=== PATIENT | female | born 1965 | race American Indian/Alaskan Native ===

== ENCOUNTER 2024-02-29 07:21 | Emergency (ER) | payer MEDICAID, SELFPAY ==
[2024-02-29 08:01] VITALS: BP 149/86; PULSE 79; RESP 16; TEMP 36.9; O2SAT 99; BMI 34.9
--- NOTE | 2024-02-29 08:14 | EKG_ITS ---
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
--- NOTE | 2024-02-29 08:14 | XR_ITS ---
Examination: PA lateral chest 2 views Technique: Upright PA lateral chest 2 views Exam date and time: February 29, 2024 0831 hrs. Indications: Chest pain today. Findings: Normal heart size Lungs are clear. The osseous structures are intact Impression: No active disease
--- NOTE | 2024-02-29 08:14 | PD.EDRME ---
Rapid Medical Screening Exam RME Arrival date/time: 02/29/24 07:21 Chief Complaint: General Adult/Misc Complain Time Seen by Provider: 02/29/24 07:52 Vital signs: Vital Signs Temperature 98.4 F 02/29/24 08:01 Pulse Rate 79 02/29/24 08:01 Respiratory Rate 16 02/29/24 08:01 Blood Pressure 149/86 H 02/29/24 08:01 Pulse Oximetry (%) 99 02/29/24 08:01 Oxygen Delivery Method Room Air 02/29/24 08:01 Vital signs reviewed by provider: Yes RME Narrative: 58-year-old female with past medical history of diabetes, hyperlipidemia, hypertension presents to the ED for evaluation of left arm pain. She reports chest tightness that woke her from sleep at 0230 today. She reports chest tightness has now improved but not she has sharp pain radiating down her left arm. Patient reports high blood pressure reading at home with a systolic in the 170s. She denies headache, nausea, vomiting, shortness of breath, leg swelling. 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 Patient is not currently on antihypertensive medication.
[2024-02-29] MEDS: ACETAMINOPHEN 325 MG TABLET 650 MG PO (08:24)
[2024-02-29] MEDS: ONDANSETRON ODT 4 MG TABRAP PO (08:25)
[2024-02-29 09:11] LABS: Collection Type, Urine Clean Catch
[2024-02-29 09:13] LABS: Basophils # (Auto) 0.1 Thou/mm3 (0.0-0.2); Basophils % (Auto) 1 % (0-2.5); Eosinophils # (Auto) 0.1 Thou/mm3 (0.0-0.5); Eosinophils % (Auto) 1 % (0-10); Hematocrit 40.5 % (36.0-46.0); Hemoglobin 14.6 g/dL (12.0-16.0); Immature Granulocytes % (Auto) 0 % (0-0); Immature Granulocytes Auto 0.02 Thou/mm3 (0.00-0.00); Lymphocytes # (Auto) 2.3 Thou/mm3 (1.0-4.8); Lymphocytes % (Auto) 27 % (10-50); Mean Corpuscular Hemoglobin 29.4 pg (25.0-35.0); Mean Corpuscular Volume 82 fL (80-100); Monocytes # (Auto) 0.4 Thou/mm3 (0.0-0.8); Monocytes % (Auto) 4 % (0-12); Neutrophils # (Auto) 5.7 Thou/mm3 (1.8-7.7); Neutrophils % (Auto) 66 % (37-80); Nucleated Red Blood Cell % 0 /100 WBC (0); Platelet Count 390 Thou/mm3 (140-440); RDW Standard Deviation 37.8 fL (36.4-46.3); Red Blood Count 4.96 Miln/mm3 (4.00-5.20); White Blood Count 8.6 Thou/mm3 (3.6-11.0)
[2024-02-29 09:19] LABS: Bilirubin,Urine Negative (Negative); Blood,Urine Negative (Negative); Clarity,Urine Clear (Clear/Hazy); Color,Urine Lt-Yellow (Lt Yel-Yel); Glucose, Urine 4+ (Negative); Ketones,Urine Trace (Negative); Leukocyte Esterase,Urine Negative (Negative); Nitrite,Urine Negative (Negative); Protein,Urine 2+ (Neg - Trace); RBC,Urine 1 /hpf (0-3); Specific Gravity,Urine 1.031 (1.001-1.035); Squamous Epithelial Cell,Urine 8 /hpf (0-5); Urobilinogen,Urine Negative mg/dL (0.0-1.0); WBC,Urine 1 /hpf (0-5)
[2024-02-29 09:30] LABS: B-Type Natriuretic Peptide < 20 pg/mL (0-100)
[2024-02-29 09:31] LABS: Alanine Aminotransferase 30 U/L (10-49); Albumin, Serum 4.3 gm/dL (3.5-5.0); Albumin/Globulin Ratio 1.5 (1.2-2.2); Alkaline Phosphatase 118 U/L (46-116); Anion Gap 7 (7-16); Aspartate Amino Transferase 20 U/L (0-34); BUN/Creatinine Ratio 15 Ratio (12-20); Bilirubin,Total 0.6 mg/dL (0.3-1.2); Blood Urea Nitrogen 12 mg/dL (9-23); Calcium 9.7 mg/dL (8.3-10.6); Calcium (Corrected) 9.7 mg/dL (8.5-10.1); Carbon Dioxide 27.3 mMol/L (20.0-31.0); Chloride 99 mMol/L (98-107); Creatinine (Component) 0.8 mg/dL (0.6-1.3); Estimated Creatinine Clearance 77.2 mL/min (>60); Globulin 2.9 gm/dL (2.3-3.5); Glucose 321 mg/dL (74-106); Magnesium 1.7 mg/dL (1.6-2.6); Osmolality,Calculated 278 (275-295); Potassium 4.1 mMol/L (3.4-5.1); Sodium 133 mMol/L (136-145); Total Protein 7.2 gm/dL (5.7-8.2); Troponin I < 0.020 ng/mL (0.0-0.045); eGFR > 60 See Note
[2024-02-29 09:34] LABS: Amphetamine/Methamp Scrn,U Negative (Negative); Barbiturate Screen,Urine Negative (Negative); Benzodiazepines Screen,Urine Negative (Negative); Benzoylecgonine Screen, Ur Negative (Negative); Fentanyl Screen,Urine Negative (Negative); Opiate Screen,Urine Negative (Negative); THC Screen,Urine Negative (Negative)
[2024-02-29 11:05] LABS: Partial Thromboplastin Time 26.7 Seconds (22.0-36.0); Prothrombin Time 10.8 Seconds (9.0-12.2)
--- NOTE | 2024-02-29 11:56 | PD.EDADULT ---
ED General RME/HPI General Chief complaint: General Adult/Misc Complain Stated complaint: SHARP PAIN IN L ARM/LEG PAIN, NAUSEA Time Seen by Provider: 02/29/24 07:52 Arrival date/time: 02/29/24 07:21 Limitations: no limitations RME / HPI RME / HPI narrative: 58-year-old female with past medical history of diabetes, hyperlipidemia, hypertension presents to the ED for evaluation of left arm pain. She reports chest tightness that woke her from sleep at 0230 today. She reports chest tightness has now improved but not she has sharp pain radiating down her left arm. Patient reports high blood pressure reading at home with a systolic in the 170s. She denies headache, nausea, vomiting, shortness of breath, leg swelling. 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 Patient is not currently on antihypertensive medication. Related Data Home Medications ?Medication ?Instructions ?Recorded ?Confirmed insulin glargine 100 unit/mL (3 30 unit subcut QDAY 08/19/17 02/26/20 mL) subcutaneous pen (Basaglar KwikPen U-100 Insulin) insulin lispro 100 unit/mL 15 unit subcut AC 02/26/20 02/26/20 subcutaneous pen (Humalog KwikPen (U-100) Insulin) Previous Rx's ?Medication ?Instructions ?Recorded amlodipine 5 mg tablet 5 mg PO QDAY #30 tabs 02/26/20 levofloxacin 500 mg tablet 500 mg PO QDAY #14 tabs 06/16/22 levofloxacin 500 mg tablet 500 mg PO QDAY #14 tabs 06/16/22 Allergies Allergy/AdvReac Type Severity Reaction Status Date / Time lisinopril Allergy Verified 02/29/24 07:23 Review of Systems Constitutional Constitutional: Denies fatigue, Denies fever(s), Denies headache(s) and Denies weakness Eyes Eyes: Reports blurry vision and Denies change in vision ENT Ears, Nose, Mouth, and Throat: Denies disequilibrium, Denies dizziness, Denies headache(s) and Denies neck pain Cardiovascular Cardiovascular: Reports chest pain, Denies dyspnea, Denies leg edema, Denies palpitations and Reports other (left arm pain ) Respiratory Respiratory: Denies cough, Denies dyspnea and Denies wheezing Gastrointestinal Gastrointestinal: Denies abdominal pain, Denies nausea and Denies vomiting Genitourinary Genitourinary: Denies dysuria Musculoskeletal Musculoskeletal: Denies back pain, Denies neck pain, Denies numbness and Denies tingling Integumentary/Breasts Skin/Breast: Denies rash Neurologic Neurologic: Denies disequilibrium, Denies dizziness, Denies headache(s), Denies numbness, Denies tingling and Denies weakness Endocrine Endocrine: Denies fatigue and Denies palpitations Allergic/Immunologic Allergic/Immunologic: Denies wheezing Past Medical History Past Medical History NEUROLOGIC: Negative Neurological Disorders CARDIAC: Negative Cardiac Disorders or Congestive Heart Failure RESPIRATORY: Negative Chronic Obstructive Pulmonary Disease (COPD) GASTROINTESTINAL: Negative Gastrointestinal Disorders GENITOURINARY: Negative Genitourinary Disorders or Renal Disease MUSCULOSKELETAL: Positive Musculoskeletal Disorders and Osteoporosis ENT: Positive Ear Infection ENDOCRINE: Positive Endocrine Disorders and Diabetes Mellitus Type 1; Negative Diabetes Mellitus Type 2 HEMATOLOGIC: Negative Blood Disorders or Anemia OTHER HISTORY: Positive Anesthesia Reactions; Negative Blood Transfusions Surgical History SURGICAL: Positive Hysterectomy and Section Social History SMOKING STATUS: Never smoker ED Exam General Limitations: Present no limitations General appearance: Present alert and in no apparent distress Head Head exam: Present atraumatic and normocephalic Eye Eye exam: Present normal appearance, PERRL and EOMI ENT ENT exam: Present normal oropharynx Neck Neck exam: Present normal inspection and full ROM Chest Chest inspection: Present normal inspection and symmetric chest wall rise Respiratory Respiratory exam: Present normal lung sounds bilaterally; Absent respiratory distress Cardiovascular Cardiovascular exam: Present regular rate and +S1 Abdominal Exam Abdominal exam: Present soft; Absent distention or tenderness Extremities Exam Extremities exam: Present normal inspection and full ROM Expanded Upper Extremity Exam Shoulder exam: Present normal inspection Arm exam: Present normal inspection Elbow exam: Present normal inspection Forearm/Wrist exam: Present normal inspection Vascular exam: Normal capillary refill Neurological Exam Neurological exam: Present alert Psychiatric Psychiatric exam: Present normal affect Skin Skin exam: Present warm, dry and normal color Course Quality Measures none Orders Category Date Time Status EKG (ED ONLY) *Do not use* NOW Care 02/29/24 08:14 Completed EKG (ED Only) Stat Exams 02/29/24 08:14 Draft XR chest 2V Stat Exams 02/29/24 08:14 Completed B-Type Natriuretic Peptide Stat Lab 02/29/24 09:01 Completed CBC Stat Lab 02/29/24 09:01 Completed Comprehensive Metabolic Panel Stat Lab 02/29/24 09:01 Completed Drug Screen,Urine Stat Lab 02/29/24 08:33 Completed Magnesium Stat Lab 02/29/24 09:01 Completed Partial Thromboplastin Time Stat Lab 02/29/24 09:01 Completed Prothrombin Time with INR Stat Lab 02/29/24 09:01 Completed Troponin I Stat Lab 02/29/24 09:01 Completed Urinalysis Stat Lab 02/29/24 08:35 Completed Acetaminophen Tab [Tylenol Tab] Med 02/29/24 08:17 Discontinued 650 mg PO X1 ONE Ondansetron Odt [Zofran Odt] Med 02/29/24 08:17 Discontinued 4 mg PO X1 ONE Reevaluation(s) Reevaluation #1: Patient reports that her left arm pain and chest pain have improved. I discussed extensively the results of days work up. I stressed that she needs to talk to her primary care doctor regarding her high blood pressure and hyperlipidemia as she may need to resume treatment. We discussed lab result of hyponatremia and hyperglycemia today. Patient given the opportunity to ask questions and vocalized understanding of the results of today's workup. Time: 12:01 Vital Signs Vital signs: Vital Signs Temperature 98.4 F 02/29/24 08:01 Pulse Rate 79 02/29/24 08:01 Respiratory Rate 16 02/29/24 08:01 Blood Pressure 149/86 H 02/29/24 08:01 Pulse Oximetry (%) 99 02/29/24 08:01 Oxygen Delivery Method Room Air 02/29/24 08:01 Pulse ox 9 9% on room air, within normal limits. [facility] Patient data External records reviewed:: [facility] [place] previous records Clinical information provided by:: patient Social determinants that could affect healthcare access:: none Patient has the following chronic illnesses:: Hypertension, diabetes, hyperlipidemia. How is presenting disease/condition affected by chronic disease/condition?: exacerbated by Evaluation data The following diagnostics were reviewed and interpreted by me:: lab results, radiology exam(s) and EKG tracing(s) Lab and/or radiology exams considered but not ordered:: Cardiac workup ordered. Interpretation Summary: EKG with nonspecific ST changes. Troponin not elevated. Hyperglycemic in the 300s. Medications Medications considered but not ordered:: Rx given. Medication administrations:: Medication Administration History Discontinued Medications Acetaminophen (Acetaminophen 325 Mg Tablet) 650 mg PO X1 ONE Stop: 02/29/24 08:18 Last Admin: 02/29/24 08:24 Dose: 650 mg Documented By: DO Ondansetron HCl (Ondansetron Odt 4 Mg Tabrap) 4 mg PO X1 ONE; Protocol Stop: 02/29/24 08:18 Last Admin: 02/29/24 08:25 Dose: 4 mg Documented By: DO Rx given. Consultations Consultation(s) initiated? (list below): No Diagnosis Differential Diagnosis ED Complaint MDM: ACS, upper extremity DVT, muscle spasm, neuralgia, DKA, atypical chest pain Most likely diagnosis given after review of the tests above:: Atypical chest pain. Admission Indicated Admission indicated?: not indicated Explain why admission is indicated or not indicated:: Troponin negative on workup. Patient hyperglycemic but with stable vital signs and clinical picture not consistent with DKA at this time. Appropriate for discharge with close follow-up with primary care. Admission Request Was there a request for admission?: No Disposition Plan Disposition Plan: Discharge Discharge Attestation Discharge Attestation: The patient and all family members were given an opportunity to ask questions and understood the discharge instructions. Discharge instructions specifically effects, indications for sooner follow up or return to the emergency department, and the expected course of current diagnosis. Patient condition: Stable Medical Decision Making MDM Narrative MDM Narrative: 58-year-old female with diabetes, hyperlipidemia, hypertension presents for evaluation of chest tightness and left arm pain. Vital signs reassuring. Cardiac workup was obtained which points away from acute ME. Hyperglycemic with trace ketones on urinalysis today but without elevated serum bicarb, therefore pointing away from ketoacidosis at this time. Patient reported that her symptoms were resolved and consistently denied abdominal pain and GI symptoms while in the department. Chest x-ray showed no evidence of pneumonia at this time. No unilateral swelling and no tachycardia, pointing away from DVT. ultimately the patient requested to be discharged home following cardiac workup and was agreeable with the plan to follow-up with her primary care within 24 to 48 hours. Patient was stable at the time of discharge. Differential Diagnosis Differential Diagnosis: ACS, upper extremity DVT, muscle spasm, neuralgia, DKA, atypical chest pain Lab Data 02/29/24 09:01 02/29/24 09:01 Labs: Lab Results 02/29/24 02/29/24 02/29/24 Range/Units 08:33 08:35 09:01 WBC 8.6 (3.6-11.0) Thou/mm3 RBC 4.96 (4.00-5.20) Miln/mm3 Hgb 14.6 (12.0-16.0) g/dL Hct 40.5 (36.0-46.0) % MCV 82 (80-100) fL MCH 29.4 (25.0-35.0) pg MCHC 36.0 (31.0-37.0) g/dl RDW Std Deviation 37.8 (36.4-46.3) fL Plt Count 390 (140-440) Thou/mm3 Neut % (Auto) 66 (37-80) % Lymph % (Auto) 27 (10-50) % Pierce % (Auto) 4 (0-12) % Eos % (Auto) 1 (0-10) % Baso % (Auto) 1 (0-2.5) % Neut # (Auto) 5.7 (1.8-7.7) Thou/mm3 Lymph # (Auto) 2.3 (1.0-4.8) Thou/mm3 Pierce # (Auto) 0.4 (0.0-0.8) Thou/mm3 Eos # (Auto) 0.1 (0.0-0.5) Thou/mm3 Baso # (Auto) 0.1 (0.0-0.2) Thou/mm3 Immature Gran # (Auto) 0.02 H (0.00-0.00) Thou/mm3 Absolute Nucleated RBC 0.00 (0.00-0.00) Thou/mm3 Immature Gran % 0 (0-0) % Nucleated RBC % 0 (0) /100 WBC PT 10.8 (9.0-12.2) Seconds INR 1.0 (0.9-1.3) APTT 26.7 (22.0-36.0) Seconds Sodium 133 L (136-145) mMol/L Potassium 4.1 (3.4-5.1) mMol/L Chloride 99 (98-107) mMol/L Carbon Dioxide 27.3 (20.0-31.0) mMol/L Anion Gap 7 (7-16) BUN 12 (9-23) mg/dL Creatinine 0.8 (0.6-1.3) mg/dL Estim Creat Clear Calc 77.2 (>60) mL/min eGFR > 60 (60 - ) See Note BUN/Creatinine Ratio 15 (12-20) Ratio Glucose 321 H (74-106) mg/dL Calculated Osmolality 278 (275-295) Calcium 9.7 (8.3-10.6) mg/dL Corrected Calcium 9.7 (8.5-10.1) mg/dL Magnesium 1.7 (1.6-2.6) mg/dL Total Bilirubin 0.6 (0.3-1.2) mg/dL AST 20 (0-34) U/L ALT 30 (10-49) U/L Alkaline Phosphatase 118 H (46-116) U/L Troponin I < 0.020 (0.0-0.045) ng/mL B-Natriuretic Peptide < 20 (0-100) pg/mL Total Protein 7.2 (5.7-8.2) gm/dL Albumin 4.3 (3.5-5.0) gm/dL Globulin 2.9 (2.3-3.5) gm/dL Albumin/Globulin Ratio 1.5 (1.2-2.2) Ur Collection Type Clean Catch Urine Color Lt-Yellow (Lt Yel-Yel) Urine Clarity Clear (Clear/Hazy) Urine pH 6.0 (5.0-7.0) Ur Specific [place] 1.031 (1.001-1.035) Urine Protein 2+ A (Neg - Trace) Urine Glucose (UA) 4+ A (Negative) Urine Ketones Trace (Negative) Urine Blood Negative (Negative) Urine Nitrite Negative (Negative) Urine Bilirubin Negative (Negative) Urine Urobilinogen (Auto) Negative (0.0-1.0) mg/dL Ur Leukocyte Esterase Negative (Negative) Urine RBC 1 (0-3) /hpf Urine WBC 1 (0-5) /hpf Ur Squamous Epith Cells 8 H (0-5) /hpf Urine Bacteria None (None) Urine Opiates Screen Negative (Negative) Urine Fentanyl Screen Negative (Negative) Ur Barbiturates Screen Negative (Negative) U Amphetamin/Meth Scrn Negative (Negative) U Benzodiazepines Scrn Negative (Negative) U Cocaine Metab Screen Negative (Negative) U Marijuana (THC) Screen Negative (Negative) Discharge Plan Plan Patient Disposition: HOME (Self Care) Disposition Comment: stable Prescriptions/Referrals Prescriptions/Med Rec: No Action Basaglar KwikPen U-100 Insulin 100 unit/mL (3 mL) Insulin Pen 30 unit SUB-Q QDAY insulin lispro [Humalog KwikPen Insulin] 100 unit/mL insulin pen 15 unit SUBCUT AC Patient Comments: inject 15 to 20 units subcutaneously WITH EACH MEAL three times a day amlodipine 5 mg tablet 5 mg PO QDAY Qty: 30 0RF levofloxacin 500 mg tablet 500 mg PO QDAY Qty: 14 0RF levofloxacin 500 mg tablet 500 mg PO QDAY Qty: 14 0RF Referrals: Sonia Segal PA-C [Primary Care Provider] - In 1 week Problem List Clinical Impression: Left arm pain, Hyperglycemia, Atypical chest pain, Glycosuria, Acute hyponatremia Patient/Caregiver Discharge Instructions Other Activity Instructions:: Continue to follow-up with primary care as planned this week. Discuss hyperlipidemia and hypertension medication options. Continue to monitor your blood sugar closely at home and take diabetes medication as prescribed. Return to the ED if your symptoms should worsen or change. 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 Mcqueen
[2024-02-29 12:18] VITALS: BP 142/72; PULSE 74; RESP 16; TEMP 36.8; O2SAT 96
== END 2024-02-29 12:21 | disposition home or self-care (01) ==
PROVIDERS: Physician Assistant; Emergency Provider Emergency Medicine; PCP Physician Assistant Medical
DX: R07.89 Other chest pain (principal); M79.602 Pain in left arm; E10.65 Type 1 diabetes mellitus with hyperglycemia; E87.1 Hypo-osmolality and hyponatremia; R81 Glycosuria; R94.31 Abnormal electrocardiogram [ECG] [EKG]; I10 Essential (primary) hypertension
CPT/HCPCS: 36415; 71046; 80053; 80307; 81001; 83735; 83880; 84484; 85025; 85610; 85730; 93005; 99283; Q0162; A9270

== ENCOUNTER → 2024-08-11 | Outpatient (CLI) | payer MEDICAID, SELFPAY ==
--- NOTE | 2024-08-11 10:45 | XR_ITS ---
Examination: Screening digital mammography, bilateral Computer aided detection 3-D breast Tomosynthesis, bilateral Date and time of exam: August 12, 2019 5:11 AM Compared to mammograms dating to June 25, 2013 Indication: Screening Technique: Nonmagnified MLO, CC views of the breasts to been obtained, reconstructed from 3-D Tomosynthesis images. R2 computer aided detection program utilized for evaluation of suspicious masses and/or abnormal calcifications. 3-D Tomosynthesis images obtained. Findings: The breasts are heterogeneously dense, which may obscure small masses Benign calcifications. No interval suspicious masses Impression: BI-RADS category II: Benign Findings. Recommend 1 year follow-up mammogram.
== END | disposition home or self-care (01) ==
LOC: CDIM 10:22
PROVIDERS: Referring Provider Nurse Practitioner Family; Visit Provider Nurse Practitioner Family
DX: Z12.31 Encounter for screening mammogram for malignant neoplasm of breast (principal); R92.323 Mammographic fibroglandular density, bilateral breasts; R92.1 Mammographic calcification found on diagnostic imaging of breast
CPT/HCPCS: 77063; 77067

== ENCOUNTER 2024-09-16 01:12 | Emergency (ER) | payer MEDICAID, SELFPAY ==
[2024-09-16 01:13] VITALS: BMI 35.9
[2024-09-16 02:29] VITALS: BP 194/98; PULSE 91; RESP 16; TEMP 36.7; O2SAT 97
[2024-09-16] MEDS: CLINDAMYCIN 150 MG CAPSULE 300 MG PO (02:55)
[2024-09-16] MEDS: CIPROFLOXACIN HCL 250 MG TABLET 500 MG PO (02:55)
[2024-09-16] MEDS: DIPHTH,PERTUSS(ACELL),TET VAC 0.5 ML SYR- ADULT IMi (02:55)
[2024-09-16 03:00] VITALS: BP 176/72; PULSE 86; RESP 18; TEMP 36.8; O2SAT 98
--- NOTE | 2024-09-16 03:16 | EDNOTE_ITS ---
<Statement entered by Mary Santizo MD - 09/18/24 03:42> As co-signing physician, I was present and available for consult prn. I concur with the plan and care as documented by the midlevel provider. ED Skin Abcess FB-RME/HPI General Chief complaint: Skin/Abscess/Foreign Body Stated complaint: LEFT FOOT SWELLING/REDNESS PT DM Time Seen by Provider: 09/16/24 02:46 Arrival date/time: 09/16/24 01:12 59F with history of HTN and DM presents to ED with foot pain after she stepped on a nail 2 days ago. Patient went to PCP who cleaned wounds, took out a remaining FB, and put her on Keflex. Patient has not had a tetanus shot in the past 5 years. Limitations: no limitations Related Data Home Medications ?Medication ?Instructions ?Recorded ?Confirmed insulin glargine 100 unit/mL (3 30 unit subcut QDAY 02/26/20 mL) subcutaneous pen (Basaglar KwikPen U-100 Insulin) insulin lispro 100 unit/mL 15 unit subcut AC 02/26/20 02/26/20 subcutaneous pen (Humalog KwikPen (U-100) Insulin) Previous Rx's ?Medication ?Instructions ?Recorded amlodipine 5 mg tablet 5 mg PO QDAY #30 tabs levofloxacin 500 mg tablet 500 mg PO QDAY #14 tabs 03/29 levofloxacin 500 mg tablet 500 mg PO QDAY #14 tabs 03/29 ciprofloxacin HCl 500 mg tablet 500 mg PO BID 7 days # 14 tabs 09/16/24 clindamycin HCl 300 mg capsule 600 mg (2 x 300 mg) PO BID 7 days 09/16/24 #28 caps Allergies Allergy/AdvReac Type Severity Reaction Status Date / Time No Known Allergies Allergy Verified 09/16/24 01:15 Review of Systems Review of Systems Systems Reviewed: All systems reviewed, normal except as documented Constitutional Constitutional: Reports system reviewed and no additional complaints, except as documented, Denies fever(s) and Denies headache(s) ENT Ears, Nose, Mouth, and Throat: Denies disequilibrium and Denies headache(s) Cardiovascular Cardiovascular: Reports system reviewed and no additional complaints, except as documented, Denies chest pain and Denies dyspnea Respiratory Respiratory: Reports system reviewed and no additional complaints, except as documented, Denies cough and Denies dyspnea Gastrointestinal Gastrointestinal: Reports system reviewed and no additional complaints, except as documented, Denies abdominal pain, Denies nausea and Denies vomiting Integumentary/Breasts Skin/Breast: Reports as per HPI and Reports skin pain Neurologic Neurologic: Reports system reviewed and no additional complaints, except as documented, Denies confusion, Denies disequilibrium and Denies headache(s) Psychiatric Psychiatric: Denies confusion Past Medical History Past Medical History NEUROLOGIC: Negative Neurological Disorders CARDIAC: Negative Cardiac Disorders or Congestive Heart Failure RESPIRATORY: Negative Chronic Obstructive Pulmonary Disease (COPD) GASTROINTESTINAL: Negative Gastrointestinal Disorders GENITOURINARY: Negative Genitourinary Disorders or Renal Disease MUSCULOSKELETAL: Positive Musculoskeletal Disorders and Osteoporosis ENT: Positive Ear Infection ENDOCRINE: Positive Endocrine Disorders and Diabetes Mellitus Type 1; Negative Diabetes Mellitus Type 2 HEMATOLOGIC: Negative Blood Disorders or Anemia OTHER HISTORY: Positive Anesthesia Reactions; Negative Blood Transfusions Surgical History SURGICAL: Positive Hysterectomy and Section Social History SMOKING STATUS: Never smoker ED Exam General Limitations: Present no limitations General appearance: Present alert and in no apparent distress Head Head exam: Present atraumatic Eye Eye exam: Present normal appearance, PERRL and EOMI ENT ENT exam: Present normal exam, normal oropharynx and mucous membranes moist Neck Neck exam: Present normal inspection, full ROM and trachea midline Chest Chest inspection: Present normal inspection and symmetric chest wall rise Respiratory Respiratory exam: Present normal lung sounds bilaterally Cardiovascular Cardiovascular exam: Present regular rate, normal rhythm and normal heart sounds Abdominal Exam Abdominal exam: Present soft and normal bowel sounds Extremities Exam Extremities exam: Present full ROM Expanded Lower Extremity Exam Foot/toe exam: Present full ROM, tenderness, swelling, erythema and puncture wound (L foot below base of 1st toe) Back Exam Back exam: Present normal inspection and full ROM Neurological Exam Neurological exam: Present alert, oriented X3 and CN II-XII intact Psychiatric Psychiatric exam: Present normal affect and normal mood Skin Skin exam: Present warm, dry, intact and normal color Course Quality Measures none Orders Category Date Time Status Ciprofloxacin HCl [Ciprofloxacin] Med 09/16/24 02:47 Discontinued 500 mg PO X1 ONE Clindamycin [Cleocin] Med 09/16/24 02:47 Discontinued 300 mg PO X1 ONE TET,DIP/PERT AC (Adult)-Tdap [Boostrix Adult (Tdap) Med 09/16/24 02:47 Discontinued Vacc] 0.5 ml IMI .ONCE ONE Vital Signs Vital signs: Vital Signs Temperature 98.1 F 09/16/24 02:29 Pulse Rate 91 09/16/24 02:29 Respiratory Rate 16 09/16/24 02:29 Blood Pressure 194/98 H 09/16/24 02:29 Pulse Oximetry (%) 97 09/16/24 02:29 Oxygen Delivery Method Room Air 09/16/24 02:29 O2 at 97% on RA and WNLs Skin / Abscess / Foreign Body MDM Narrative MDM Narrative:: 59F with history of HTN and DM presents to ED with foot pain after she stepped on a nail 2 days ago. Patient went to PCP who cleaned wounds, took out a remaining FB, and put her on Keflex. Patient has not had a tetanus shot in the past 5 years. Physical exam reveals L foot swelling, redness, and tenderness below base of L big toe with closed puncture wound on sole. Patient is afebrile, calm and alert. Tdap given. Keflex does not provide adequate coverage, especially not for pseudomonas or MRSA. Given DM history and history of diabetic ulcer, will cover for both. Patient data External records reviewed:: [facility] previous records Clinical information provided by:: patient Social determinants that could affect healthcare access:: none Patient has the following chronic illnesses:: HTN and DM How is presenting disease/condition affected by chronic disease/condition?: exacerbated by Evaluation data The following diagnostics were reviewed and interpreted by me:: other (specify) Lab and/or radiology exams considered but not ordered:: not ordered Interpretation Summary: n/a Medications / Prescriptions Medications or Prescriptions considered but not ordered:: ordered Medication administrations:: Medication Administration History Discontinued Medications Ciprofloxacin (Ciprofloxacin Hcl 250 Mg Tablet) 500 mg PO X1 ONE Stop: 09/16/24 02:48 Last Admin: 09/16/24 02:55 Dose: 500 mg Documented By: CB Clindamycin HCl (Clindamycin 150 Mg Capsule) 300 mg PO X1 ONE Stop: 09/16/24 02:48 Last Admin: 09/16/24 02:55 Dose: 300 mg Documented By: KALEB Diphtheria/Tetanus/Acell Pertussis (Diphth,Pertuss(Acell),Tet Vac 0.5 Ml Syr- Adult) 0.5 ml IMi .ONCE ONE Stop: 09/16/24 02:48 Last Admin: 09/16/24 02:55 Dose: 0.5 ml Documented By: CB above Consultations Consultation(s) initiated? (list below): No Diagnosis Skin/Abscess Differential Diagnosis: abscess of skin or subcutaneous tissue, viral exanthem, dermatophytosis, urticaria, herpes zoster, allergic reaction to drug, cellulitis, eczema, insect bites, impetigo, contact dermatitis and other (puncture wound) Most likely diagnosis given after review of the tests above:: puncture wound Admission Indicated Admission indicated?: not indicated Admission Request Was there a request for admission?: No Disposition Plan Disposition Plan: Discharge Discharge Attestation Discharge Attestation: The patient and all family members were given an opportunity to ask questions and understood the discharge instructions. Discharge instructions specifically effects, indications for sooner follow up or return to the emergency department, and the expected course of current diagnosis. Patient condition: Stable Discharge Plan Plan Patient Disposition: HOME (Self Care) Discharge Disposition comment: Stable Prescriptions/Referrals Prescriptions/Med Rec: New clindamycin HCl 300 mg capsule 600 mg PO BID 7 Days Qty: 28 0RF ciprofloxacin HCl 500 mg tablet 500 mg PO BID 7 Days Qty: 14 0RF No Action Basaglar KwikPen U-100 Insulin 100 unit/mL (3 mL) Insulin Pen 30 unit SUB-Q QDAY insulin lispro [Humalog KwikPen Insulin] 100 unit/mL insulin pen 15 unit SUBCUT AC Patient Comments: inject 15 to 20 units subcutaneously WITH EACH MEAL three times a day amlodipine 5 mg tablet 5 mg PO QDAY Qty: 30 0RF levofloxacin 500 mg tablet 500 mg PO QDAY Qty: 14 0RF levofloxacin 500 mg tablet 500 mg PO QDAY Qty: 14 0RF Referrals: Temporary Provider,ED [Primary Care Provider] - In 1 week Problem List Clinical Impression: Puncture wound Patient/Caregiver Discharge Instructions Education Materials: ED Puncture Wound (Foot) Additional Instructions: Please follow-up with PCP within 24-48 hours and return immediately if symptoms worsen. Stop Keflex. Take both new ABX. Print Language: Polish Stand Alone Forms: Patient Portal Info Letter GARETH/LEAN SIX SIGMA BLACK BELT Supervising Physician GARETH/LEAN SIX SIGMA BLACK BELT Supervising Physician: Dr. Santizo
== END 2024-09-16 03:02 | disposition home or self-care (01) ==
LOC: SERX 05:25
PROVIDERS: Emergency Provider Emergency Medicine
DX: S91.332A Puncture wound without foreign body, left foot, initial encounter (principal); W45.0XXA Nail entering through skin, initial encounter; Z23 Encounter for immunization; E11.9 Type 2 diabetes mellitus without complications; I10 Essential (primary) hypertension
CPT/HCPCS: 90471; 90715; 99282; A9270

== ENCOUNTER 2024-10-21 02:04 | Observation (INO) | payer MEDICAID, SELFPAY ==
[2024-10-21] VITALS (12 sets, daily range): BP systolic 123–214; BP diastolic 66–116; PULSE 67–89; RESP 13–22; TEMP 36.6–36.9; O2SAT 95–100; BMI 35.3
--- NOTE | 2024-10-21 02:08 | EKG_ITS ---
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
--- NOTE | 2024-10-21 02:19 | EDNOTE_ITS ---
ED Arrhythmia Palp. RME/HPI General Chief Complaint: General Adult/Misc Complain Stated Complaint: WOKE UP COUGHING, PALPITATIONS Arrival date/time: 10/21/24 02:04 RME / HPI RME / HPI narrative: This section includes all my notes and documentations, including HPI, PE, and ED course. Colby Morris MD HPI: 59yo female here with headache, dizziness, cough attack, palpitations, bilateral upper extremity numbness and tingling, and nausea just [employer]. No other complaints reported. ROS: All negative except as documented in HPI. Physical Exam: General: Alert and oriented. No acute distress when remaining still. High BP noted. Eyes: Conjunctivae and lids clear. PERRL EOMI. ENT: No nasal congestion. Neck: Supple. No carotid bruit. No JVD. Heart: RRR. Lungs: No respiratory distress. Good air movement. No rhonchi, wheezing, ral es. Abdomen: Soft and nontender. Normal bowel sounds. No distension. No rebound or guarding. Back: No CVA tenderness. Skin: Warm and dry. Neuro: Alert and oriented X 3. Cranial nerves II to XII grossly normal. No peripheral motor deficits. I reviewed all diagnostic test results. My interpretation of the EKG is NSR with nonspecific ST-T changes. My review of the gallbladder US report is NAD. My review of the CT head report is equivocal infarct in left cerebellum. My review of the CT chest abdomen pelvis report is NAD. Blood tests remarkable for Glucose 421, Magnesium 1.5. UA unremarkable. COVID/Influenza negative. At this point, diagnoses include strokelike symptoms, hypertensive emergency, hyperglycemia, and hypomagnesemia. Treatment here included Zofran 4 mg IV, oral metoprolol 25 mg, hydralazine 25 mg IV, regular insulin 10 units IV, and MgSO4 2 gram IV. Significant improvement not noted. I discussed the case with our teleneurologist and hospitalist. About the presentation and exam and diagnostics and treatments here. And need of further care in the hospital. Will accept the patient. Colby Morris MD Related Data Home Medications ?Medication ?Instructions ?Recorded ?Confirmed insulin glargine 100 unit/mL (3 30 unit subcut QDAY 02/25/ mL) subcutaneous pen (Basaglar KwikPen U-100 Insulin) insulin lispro 100 unit/mL 15 unit subcut AC 02/26/20 02/26/20 subcutaneous pen (Humalog KwikPen (U-100) Insulin) Previous Rx's ?Medication ?Instructions ?Recorded amlodipine 5 mg tablet 5 mg PO QDAY #30 tabs levofloxacin 500 mg tablet 500 mg PO QDAY #14 tabs 03/29 levofloxacin 500 mg tablet 500 mg PO QDAY #14 tabs 03/29 Allergies Allergy/AdvReac Type Severity Reaction Status Date / Time No Known Allergies Allergy Verified 10/21/24 02:06 Review of Systems Review of Systems Systems Reviewed: All systems reviewed, normal except as documented ED Exam Narrative Physical exam: As noted in HPI. Course Quality Measures none Orders Category Date Time Status EKG (ED ONLY) *Do not use* NOW Care 10/21/24 02:08 Completed EKG (ED Only) Stat Exams 10/21/24 02:08 Ordered Vital Signs Vital signs: Vital Signs Temperature 98.2 F 10/21/24 02:15 Pulse Rate 81 10/21/24 02:15 Respiratory Rate 19 10/21/24 02:15 Blood Pressure 214/116 H 10/21/24 02:15 Pulse Oximetry (%) 97 10/21/24 02:15 Oxygen Delivery Method Room Air 10/21/24 02:15 Arrhythmia/Palpitations MDM Narrative MDM Narrative:: 59yo female here with headache, dizziness, cough attack, palpitations, bilateral upper extremity numbness and tingling, and nausea just [employer]. No other complaints reported. Patient data External records reviewed:: [facility] previous records (Per chart review, patient was seen here on 02/29/24 for hyponatremia.) Clinical information provided by:: patient Social determinants that could affect healthcare access:: none Patient has the following chronic illnesses:: HTN, DM How is presenting disease/condition affected by chronic disease/condition?: uneffected by Evaluation data The following diagnostics were reviewed and interpreted by me:: lab results, radiology exam(s) and EKG tracing(s) (My interpretation of the EKG is: Sinus rhythm (79 bpm) with nonspecific ST-T changes. Colby Morris MD) Lab and/or radiology exams considered but not ordered:: none Interpretation Summary: I reviewed all diagnostic test results. My interpretation of the EKG is NSR with nonspecific ST-T changes. My review of the gallbladder US report is NAD. My review of the CT head report is equivocal infarct in left cerebellum. My review of the CT chest abdomen pelvis report is NAD. Blood tests remarkable for Glucose 421, Magnesium 1.5. UA unremarkable. COVID/Influenza negative. Medications / Prescriptions Medications or Prescriptions considered but not ordered:: none Medication administrations:: Treatment here included Zofran 4 mg IV, oral metoprolol 25 mg, hydralazine 25 mg IV, regular insulin 10 units IV, and MgSO4 2 gram IV. Consultations Consultation(s) initiated? (list below): Yes Consultation #1 (Physician, Specialty, Details): I discussed the case with our teleneurologist and hospitalist. About the presentation and exam and diagnostics and treatments here. And need of further care in the hospital. Will accept the patient. Diagnosis Differential diagnosis arrhythmia/palpitations: palpitations, anxiety, sinus tachycardia, artial fibrillation, artial flutter, ventricular premature beats, supraventricular tachycardia, ventricular tachycardia, WPW and other (CVA, brain tumor, WA, dehydration, electrolyte abnormalities, UTI, pneumonia, sepsis) Most likely diagnosis given after review of the tests above:: Strokelike symptoms, hypertensive emergency, hyperglycemia, hypomagnesemia Admission Indicated Admission indicated?: indicated Explain why admission is indicated or not indicated:: Strokelike symptoms, hypertensive emergency, hyperglycemia, hypomagnesemia Admission Request Was there a request for admission?: Yes Admission Attestation Admission request attestation: Discussed case with Hospitalist service regarding admission. Discussed patients ED course, exam findings, labs, and radiology results. The Hospitalist [agrees] to accept the patient for admission. Disposition Plan Disposition Plan: Admit Critical Care Time Critical Care Time Critical Care Time: Yes Total Critical Care Time (min.): 36 Attestation: Strokelike symptoms, hypertensive emergency, hyperglycemia, hypomagnesemia Discharge Plan Plan Patient Disposition: Admit Acute Care w/in Hospital Problem List Clinical Impression: Stroke-like symptoms, Hypertensive emergency, Hyperglycemia, Hypomagnesemia
--- NOTE | 2024-10-21 02:23 | XR_ITS ---
Examination: Abdomen sonogram, Limited Date and time of exam: October 21, 2024 0244 hours INDICATIONS: Hypertension abdominal pain today Technique: Real-time blancas scale transabdominal sonographic images of the upper abdomen obtained. Findings: Normal gallbladder. Normal common bile duct 0.3 cm Pancreatic head 2.9 cm Liver 21.7 cm lobular contour fatty infiltration no focal liver lesions. Normal hepatopedal portal venous flow Patent IVC. IMPRESSION: Normal gallbladder. Moderate hepatomegaly primary hepatocellular disease, no focal liver lesions.
--- NOTE | 2024-10-21 02:24 | XR_ITS ---
Examination: CT brain head without contrast. 2-D sagittal coronal reconstructions Date and time of exam:October 21 oh 2024, 0304 hours INDICATIONS: High blood pressure and headaches today CTDI: vol (mGy):50.2 DLP: (mGycm):955 Technique: Multiple CT axial sections of the brain have been obtained, 5 mm slice thickness. Contrast has not been administered. 2-D sagittal, coronal reconstructions have been obtained Low dose protocols were performed. One or more of the following dose reduction techniques were used; automated exposure control, adjustment of the mA and/or KV according to patient size, use of iterative reconstruction technique. Findings: No significant ventricular enlargement. Intra-axial or extra-axial hemorrhage density is not seen. No mass effect or midline shift Basal cisterns are not remarkable. Fourth ventricle is midline. Cranial vault intact. Impression: Negative for acute hemorrhage, mass effect or midline shift I do not visualize a definite cerebellar lesion but clinical correlation advised and follow-up with brain MRI recommended as clinically warranted
--- NOTE | 2024-10-21 02:24 | XR_ITS ---
Examination: CT chest, without intravenous contrast. CT abdomen, without intravenous contrast. CT pelvis, without intravenous contrast. 2-D sagittal and coronal reconstructions. 3-D reconstructions. Date and time of exam:October 21, 2024, 1509 hours INDICATIONS: Coughing cardiac palpitations chest pain and shortness of breath abdominal pain elevated blood pressure today CTDI vol (mgy) 12.1 DLP (MGycm)820 Technique: Multiple CT images, 3.0 mm slice thickness, obtained chest, abdomen, pelvis, with the high-resolution 64 slice scanner.. Sagittal and coronal 2-D reconstructions are obtained. 3-D reconstructions Low dose protocols were performed. One or more of the following dose reduction techniques were used; automated exposure control, adjustment of the mA and/or KV according to patient size, use of iterative reconstruction technique. Findings: No thoracic aortic aneurysm dilatation. Pulmonary artery segments are not enlarged. Soft nodular densities in the right upper lobe No pulmonary edema Hepatomegaly 24 cm, liver is mildly irregular in contour No gallstones Spleen is nonenlarged No pancreatic mass No renal or ureteral calculi, no hydronephrosis Aorta normal size Normal appendix Urinary bladder is intact No pelvic mass Moderate osteopenia Impression : Soft nodular densities is not in the right upper lobe, which may relate to prior granulomatous disease, mild pneumonia not excluded Hepatomegaly, the liver mildly irregular in contour, consider primary hepatocellular disease Normal appendix No bowel obstruction
[2024-10-21] MEDS: METOPROLOL TARTRATE 25 MG TABLET PO (02:38)
[2024-10-21] MEDS: hydrALAZINE INJ 20 MG/ML VIAL 10 MG IVP (02:39)
[2024-10-21] MEDS: ONDANSETRON INJ 2 MG/ML INJ 2 ML 4 MG IVP (02:39)
[2024-10-21 02:50] LABS: Collection Type, Urine Clean Catch; RBC,Urine 0 /hpf (0-3); WBC,Urine 0 /hpf (0-5)
[2024-10-21 02:51] LABS: Basophils # (Auto) 0.1 Thou/mm3 (0.0-0.2); Basophils % (Auto) 1 % (0-2.5); Eosinophils # (Auto) 0.2 Thou/mm3 (0.0-0.5); Eosinophils % (Auto) 2 % (0-10); Hematocrit 40.3 % (36.0-46.0); Hemoglobin 14.2 g/dL (12.0-16.0); Immature Granulocytes Auto 0.03 Thou/mm3 (0.00-0.00); Lymphocytes # (Auto) 2.2 Thou/mm3 (1.0-4.8); Lymphocytes % (Auto) 29 % (10-50); Mean Corpuscular HGB Conc 35.2 g/dl (31.0-37.0); Mean Corpuscular Hemoglobin 29.6 pg (25.0-35.0); Mean Corpuscular Volume 84 fL (80-100); Monocytes # (Auto) 0.5 Thou/mm3 (0.0-0.8); Monocytes % (Auto) 6 % (0-12); Neutrophils # (Auto) 4.6 Thou/mm3 (1.8-7.7); Neutrophils % (Auto) 61 % (37-80); Nucleated Red Blood Cell # 0.00 Thou/mm3 (0.00-0.00); Nucleated Red Blood Cell % 0 /100 WBC (0); Platelet Count 347 Thou/mm3 (140-440); RDW Standard Deviation 37.4 fL (36.4-46.3); Red Blood Count 4.80 Miln/mm3 (4.00-5.20); White Blood Count 7.5 Thou/mm3 (3.6-11.0)
[2024-10-21 03:15] LABS: Bilirubin,Urine Negative (Negative); Blood,Urine Negative (Negative); Clarity,Urine Clear (Clear/Hazy); Color,Urine Colorless (Lt Yel-Yel); Culture Indicated,Urine Not Indicated; Glucose, Urine 4+ (Negative); Ketones,Urine Negative (Negative); Leukocyte Esterase,Urine Negative (Negative); Nitrite,Urine Negative (Negative); PH,Urine 7.0 (5.0-7.0); Protein,Urine 1+ (Neg - Trace); Specific Gravity,Urine 1.024 (1.001-1.035); Squamous Epithelial Cell,Urine 2 /hpf (0-5); Urobilinogen,Urine Negative mg/dL (0.0-1.0)
[2024-10-21 03:24] LABS: Alanine Aminotransferase 25 U/L (10-49); Albumin, Serum 4.2 gm/dL (3.5-5.0); Albumin/Globulin Ratio 1.4 (1.2-2.2); Alkaline Phosphatase 202 U/L (46-116); Amylase 105 U/L (30-118); Anion Gap 9 (7-16); Aspartate Amino Transferase 24 U/L (0-34); BUN/Creatinine Ratio 9 Ratio (12-20); Bilirubin,Direct < 0.1 mg/dL (0.0-0.3); Bilirubin,Total 0.4 mg/dL (0.3-1.2); Blood Urea Nitrogen 8 mg/dL (9-23); Calcium 9.5 mg/dL (8.3-10.6); Calcium (Corrected) 9.5 mg/dL (8.5-10.1); Carbon Dioxide 22.6 mMol/L (20.0-31.0); Chloride 102 mMol/L (98-107); Creatinine (Component) 0.9 mg/dL (0.6-1.3); Estimated Creatinine Clearance 68.2 mL/min (>60); Free T4 (Free Thyroxine) 1.16 ng/dL (0.89-1.76); Globulin 3.0 gm/dL (2.3-3.5); Lipase 44 U/L (12-53); Magnesium 1.5 mg/dL (1.6-2.6); Osmolality,Calculated 284 (275-295); Potassium 3.8 mMol/L (3.4-5.1); Sodium 134 mMol/L (136-145); Thyroid Stimulating Hormone 1.85 uIU/mL (0.55-4.78); Total Protein 7.2 gm/dL (5.7-8.2); Troponin I < 0.020 ng/mL (0.0-0.045); eGFR > 60 See Note
[2024-10-21 03:27] LABS: Glucose 421 mg/dL (74-106)
[2024-10-21 03:33] LABS: B-Type Natriuretic Peptide 22 pg/mL (0-100)
--- NOTE | 2024-10-21 03:33 | PRELIM_ITS ---
Right upper quadrant abdominal ultrasound with Doppler and wave Doppler spectral analysis. October 21, 2024 0244 hours Clinical history: Epigastric tenderness Comparison: None. Findings: The liver is enlarged and demonstrates increased echogenicity. Mild irregular liver margins. No intrahepatic biliary ductal dilatation. No gallbladder calculus, wall thickening or pericholecystic fluid is demonstrated. The common bile duct is normal in caliber at 3.2 mm. The pancreas is unremarkable to the extent visualized. The imaged portions of the right kidney are within normal limits. The portal vein is patent with hepatopetal flow normal wave Doppler spectral analysis. The hepatic veins are patent with normal wave Doppler spectral analysis. The inferior vena cava is patent with normal wave Doppler spectral analysis. Pendleton sign is not available at the time of this report. Impression: Hepatomegaly associated with liver steatosis, suspicious for steatohepatitis. Possible cirrhosis. Report Electronically Signed By: Jorje Nj 10/21/2024 3:32:43 AM [EST]
--- NOTE | 2024-10-21 03:51 | PRELIM_ITS ---
CT scan of the chest, abdomen and pelvis without intravenous contrast (axial sections with sagittal and coronal reformats) October 21, 2024 0309 hours Clinical History: SOB, abdominal pain. Comparison: Ultrasound of October 21, 2024. Findings: Cluster of subcentimeter lung nodules in the right upper lobe with tree-in-bud appearance. Small consolidation in the bilateral lower lobes. There is no pleural effusion or pneumothorax. The aorta is unremarkable on this noncontrast study. No evidence of mediastinal mass or lymphadenopathy. There is no pericardial effusion. The gallbladder, spleen, pancreas, adrenals and kidneys are unremarkable on this noncontrast study. Hepatomegaly. Irregular liver margins. Fecal loading throughout the colon. No evidence of bowel obstruction. The appendix is within normal limits. The urinary bladder is unremarkable. There is no free fluid or free air. Degenerative changes of the imaged portions of the spine. No acute fractures. Status post hysterectomy. Impression: 1. Right upper lobe pneumonia. 2. Mild bilateral lung consolidation, atelectasis versus pneumonia. 3. Hepatomegaly and probable cirrhosis. 4. Fecal loading throughout the colon. Report Electronically Signed By: Jorje Nj 10/21/2024 3:50:50 AM [EST]
--- NOTE | 2024-10-21 03:51 | XR_ITS ---
Examination: CTA carotids with intravenous contrast CTA brain, head with intravenous contrast. 2-D sagittal, coronal reconstructions. 3-D reconstructions. Exam date and time: October 21, 2024, 0358 hours INDICATIONS: Episodes of headache and dizziness today CTDI: vol (mGy) 11.8 DLP: (mGycm) 444 Technique: Multiple CTA axial brain, head carotid images post intravenous contrast injection 75 cc, Isovue-[id number]. 2-D sagittal, coronal reconstructions. 3-D reconstructions, 3-D post processing including vascular maximum intensity projection images. Low dose protocols were performed. One or more of the following dose reduction techniques were used; automated exposure control, adjustment of the mA and/or KV according to patient size, use of iterative reconstruction technique. Findings: No common carotid carotid bifurcation or significant internal carotid artery stenoses Codominant vertebral arteries with no significant stenoses Heavy calcification juxta sellar portions internal carotid arteries Intracranial vertebral arteries artery posterior cerebral branches demonstrate no occlusions M1 segments middle cerebral arteries are intact There appears to be occlusion of an M2 segment of the right middle cerebral artery Anterior cerebral arteries intact IMPRESSION: No significant neck arterial stenoses. There appears to be occlusion of an M2 segment of the right middle cerebral artery, suggest brain MRI MRA without contrast, stroke protocol, follow-up
--- NOTE | 2024-10-21 03:53 | PRELIM_ITS ---
CT scan of the head without intravenous contrast (axial sections with sagittal and coronal reformats) October 21, 2024 at 0304 hours Clinical History: Headache and high blood pressure. Comparison: None. Findings: Questionable hypodense area in the left cerebellum. There is no evidence of intracranial hemorrhage, mass effect or midline shift. There is mild volume loss. The calvarium is unremarkable. The mastoid air cells and the visualized paranasal sinuses are clear. Impression: 1. Questionable hypodense area in the left cerebellum. If acute cerebellar infarct is clinically suspected, consider correlation with MRI. 2. No evidence of intracranial hemorrhage, mass effect or midline shift. 3. Mild volume loss. Discussion Details: Results verbally communicated to : Dr. Morris at 03:48 AM 10/21/2024 Report Electronically Signed By: Jorje Nj 10/21/2024 3:53:03 AM [EST]
--- NOTE | 2024-10-21 03:53 | PC.NURSE ---
Case Consult 10/21/2024 03:53:33 [facility] Case # [id number] has been created.
[2024-10-21] MEDS: INSULIN HUM REGULAR 1 UNIT/0.01 ML (PER UNIT) 10 UNIT IV (03:54)
[2024-10-21] MEDS: Magnesium Sulfate 2 GM Ivpb 2 GM/50 ML BAG IV ×2 (04:10→06:19)
--- NOTE | 2024-10-21 04:17 | PC.NURSE ---
0400 DR. GONZALEZ FROM [facility] FOR STROKE ALERT.
--- NOTE | 2024-10-21 04:28 | ESCONSULT_ITS ---
Tele Neuro Consultation Consultation Date 10/21/24 Most Recent Vital Signs Last Vital Signs Temp 98.2 F 10/21/24 02:15 Pulse 87 10/21/24 04:13 Resp 18 10/21/24 04:12 BP 150/89 H 10/21/24 03:35 Pulse Ox 99 10/21/24 04:12 O2 Del Method Room Air 10/21/24 03:35 Consultation Narrative [facility] TeleNeurology Consult Services Patient Name:???Génesis Belcher Date of :???1965 Identification Number:??? Date of Service:???10/21/2024 03:53:33 Diagnosis:?I63.89 - Cerebrovascular accident (CVA) due to other mechanism (HCCC) Impression: ?59 year old with cough and heartburn most consistent with GERD. Also has some nausea and left sided numbness and CTH shows questionable hypodensity in the cerebellum. CTA is negative on my review. I suspect that is artifact but given her focal neurological exam I do think that an MRI should be performed to both follow up her focal findings and evaluation the cerebellum for any pathology. Our recommendations are outlined below. Recommendations: ? Stroke/Telemetry Floor ? Neuro Checks (Q2) ? Bedside Swallow Eval ? DVT Prophylaxis ? IV Fluids, Normal Saline ? Head of Bed 30 Degrees ? Euglycemia and Avoid Hyperthermia (PRN Acetaminophen) ? Hold Anticoagulation for Now ? Antihypertensives PRN if Blood pressure is greater than 220/120 or there is a concern for End organ damage/contraindications for permissive HTN. If blood pressure is greater than 220/120 give labetalol PO or IV or Vasotec IV with a goal of 15% reduction in BP during the first 24 hours. Sign Out: ? Discussed with Emergency Department Provider Advanced Imaging:Advanced imaging has been ordered. Results pending. Metrics: Last Known Well: 10/20/2024 23:00:00 Dispatch Time: 10/21/2024 03:53:33 Arrival Time: 10/21/2024 02:06:08 Initial Response Time: 10/21/2024 03:56:19Symptoms: nausea, coughing. Initial patient interaction: 10/21/2024 04:08:49 NIHSS Assessment Completed: 10/21/2024 04:17:22Patient is not a candidate for Thrombolytic. Thrombolytic Medical Decision: 10/21/2024 04:17:24Patient was not deemed candidate for Thrombolytic because of following reasons: LKW outside 4.[address] Head: I personally reviewed all the CT images that were available to me and it showed: no evidence of hemorrhage. Primary Provider Notified of Diagnostic Impression and Management Plan on: 10/21/2024 04:25:15 History of Present Illness:Patient is a 59 year old Female. Patient was brought by private transportation with symptoms of nausea, coughing. 59 year old female who has been having some nausea, heartburn, cough and palpitations since she woke up out of sleeping. She was coughing and had d ifficulty catching her breath. She had numbness and tingling in the hands. The patient did have some numbness and tingling in the left foot. She does have nausea. She sees a red spot in her left eye. She has had a hemorrhage in that eye for the past 3 days. She does not have asthma. She denies any diplopia. She feels weak all over. ? Past Medical History: ?Hypertension ?There is no history of Diabetes Mellitus Medications: No Anticoagulant use? No Antiplatelet use Reviewed EMR for current medications Allergies:? Reviewed Social History: Smoking: No Family History: There is no family history of premature cerebrovascular disease pertinent to this consultation ROS : 14 Points Review of Systems was performed and was negative except mentioned in HPI. Past Surgical History: There Is No Surgical History Contributory To Today?s Visit ? Examination: BP(150/89),?Pulse(76), 1A: Level of Consciousness - Alert; keenly responsive?+ 0 1B: Ask Month and Age - Both Questions Right?+ 0 1C: Blink Eyes & Squeeze Hands - Performs Both Tasks?+ 0 2: Test Horizontal Extraocular Movements - Normal?+ 0 3: Test Visual Gould - Partial Hemianopia?+ 1 4: Test Facial Palsy (Use Grimace if Obtunded) - Normal symmetry?+ 0 5A: Test Left Arm Motor Drift - No Drift for 10 Seconds?+ 0 5B: Test Right Arm Motor Drift - No Drift for 10 Seconds?+ 0 6A: Test Left Leg Motor Drift - No Drift for 5 Seconds?+ 0 6B: Test Right Leg Motor Drift - No Drift for 5 Seconds?+ 0 7: Test Limb Ataxia (FNF/Heel-Chawla) - No Ataxia?+ 0 8: Test Sensation - Mild-Moderate Loss: Less Sharp/More Dull?+ 1 9: Test Language/Aphasia - Normal; No aphasia?+ 0 10: Test Dysarthria - Normal?+ 0 11: Test Extinction/Inattention - No abnormality?+ 0 NIHSS Score:?2 NIHSS Free Text :?Mild left sided numbness. Pre-Morbid Modified Dolores Scale:0 Points = No symptoms at all Spoke with :?Dr. Morris, ED Physician This consult was conducted in real time using interactive audio and video technology. Patient was informed of the technology being used for this visit and agreed to proceed. Patient located in hospital and provider located at home/office setting. Patient is being evaluated for possible acute neurologic impairment and high probability of imminent or life-threatening deterioration. I spent total of 40 minutes providing care to this patient, including time for face to face visit via telemedicine, review of medical records, imaging studies and discussion of findings with providers, the patient and/or family. Dr Anabelle Cahvez [facility] For Inpatient follow-up with [facility] physician please call [facility] at . As we are not an outpatient service for any post hospital discharge needs please contact the hospital for assistance. If you have any questions for the [facility] physicians or need to reconsult for clinical or diagnostic changes please contact us via [facility] at . ?
--- NOTE | 2024-10-21 04:58 | PRELIM_ITS ---
CT angiogram of the head and neck with intravenous contrast (axial sections with sagittal and coronal reformats) October 21, 2024 at 0358 hours Clinical History: Focal neuro deficit, stroke suspected. Comparison: Compared with the prior study dated October 21, 2024. Findings: Head: Severe stenosis of the distal portion of the M2 segment of the right MCA. The bilateral internal carotid, left middle and bilateral anterior cerebral arteries are patent bilaterally. The intracranial vertebral arteries are patent. The vertebrobasilar junction, basilar and posterior cerebral art eries are patent. No evidence of large vessel occlusion, critical stenosis or aneurysm. Neck: The aortic arch to the extent visualized as well as the origins of the right brachiocephalic, left common carotid, and left subclavian arteries are patent. The common carotid arteries, carotid bulbs, and internal and external carotid arteries are patent. The origins of the vertebral arteries are unremarkable. The left or right vertebral arteries are codominant. No evidence of vascular occlusion, critical stenosis, dissection or aneurysm. The soft tissues of the neck are unremarkable. The osseous structures are unremarkable. Impression: Head: Severe stenosis of the distal portion of the M2 segment of the right MCA. Neck: No evidence of vascular occlusion, critical stenosis, dissection or aneurysm. Discussion Details: Results verbally communicated to : Dr. Morris at 04:52 AM 10/21/2024 Report Electronically Signed By: Jorje Nj 10/21/2024 4:57:34 AM [EST]
--- NOTE | 2024-10-21 05:37 | ESHP_ITS ---
Documentation for date of: 10/21/24 [facility] History of Present Illness History of present illness: Génesis Belcher is a 59-year-old F with a PMH of HTN on lisinopril, T2DM on Humalog, Richey's palsy, and bleeding intramural uterine fibroids s/p hysterectomy 9 years ago who presents today with stroke-like symptoms. According to patient her symptoms began today at 1:30 AM when she awoke with a headache with associated posterior neck pain, palpitations, chest pain, nausea and a dry coughing fit. She describes the headache as localized retro-orbitally and sharp in nature. It comes and goes and seems to worsen with lying supine. Daughter, who was present during the interview, also reported that she seemed more confused recently and that the patient would forget things that the patient had said earlier. Patient endorses having a similar but less severe episode in the past where she had been told it was a panic attack but had turned out to be due to a bladder infection. At the time of interview, she said that she was not in much pain (1/10) and that she felt mostly head pressure but that at its worse, the pain was a 4-5/10 when she had been lying down during imaging in the ED today. She endorses also recently having eye hemorrhaging during a recent dental teeth cleaning session that has left her vision blurred in the left eye by the blood obscuring her field of vision. Other associated symptoms she endorses include: episodes of abdominal burning and apparent hot flashes, chills, unexplained weight loss (20 pound loss in 1 month), appetite loss, night sweats, rhinorrhea, blurred vision in right eye, chest pressure or heaviness, palpitations, orthopnea, congestion, abdominal pain, and constipation with hard stools. She denies any recent travel or sick contacts. In the ED, vitals showed: BP 214/116 HR 81 RR 19 temp 98.2 SpO2 97% on room air ED Course: CBC was unremarkable. Coagulation panel was unremarkable. CMP showed slight hyponatremia 134, significantly elevated blood glucose 421, slightly low magnesium 1.5, and high alkaline phosphatase 202. Troponin I, BNP, and TSH were all within normal range. UA showed 1+ protein, and 4+ glucose. UDS was negative. Imaging: Right upper quadrant abdominal ultrasound showed hepatomegaly associated with liver steatosis (suspicious for steatohepatitis) and possible cirrhosis. CT CAP showed right upper lobe pneumonia, mild bilateral lung consolidation (atelectasis versus pneumonia), hepatomegaly and probable cirrhosis, and fecal loading throughout the colon. Noncontrast head CT showed a questionable hypodense area in the left cerebellum, mild volume loss, but no evidence of intracranial hemorrhage, mass effect or midline shift. Contrast head and neck CT angiogram showed severe stenosis of the distal portion of the M2 segment of the right MCA but no evidence of vascular occlusion, critical stenosis, dissection or aneurysm. Patient was given p.o. metoprolol tartrate 25 mg x 1, IV hydralazine HCl 10 mg x 1, IV Zofran 4 mg x 1, 10 units of IV insulin human regular x 1, IV magnesium sulfate 2 g x 1, and started on IV ceftriaxone 1 g daily. Patient was admitted for the work-up and management of stroke-like symptoms, hypertensive emergency, and pneumonia. Neurology was consulted. Review of Systems Review of Systems Narrative Review of Systems: General: Endorses unexplained weight loss (20 pounds over 1 month). Endorses night sweats. Endorses chills. Denies fevers HEENT: Endorses rhinorrhea. Endorses congestion. Endorses recent eye hemorrhage. Denies sore throat Heart: Endorses palpitations. Endorses chest pain and pressure. Endorses orthopnea. Lungs: Endorses shortness of breath. Endorses dry cough. Abdomen: Endorses nausea and appetite loss. Endorses abdominal pain. Endorses constipation and hard stools. Denies vomiting, diarrhea, or blood in stool Genitourinary: Denies frequency, urgency, dysuria, or hematuria Neurology: Endorses headache. Endorses mild retrograde amnesia. Endorses blurred vision. Denies any changes in vision, weakness or difficulty speaking Endocrine: Endorses hot flash-like symptoms. MSK: Endorses neckache. Endorses cool extremities at times. Review of systems otherwise negative except what is mentioned above. Past Medical History Past Medical History NEUROLOGIC: Negative Neurological Disorders CARDIAC: Negative Cardiac Disorders or Congestive Heart Failure RESPIRATORY: Negative Chronic Obstructive Pulmonary Disease (COPD) GASTROINTESTINAL: Negative Gastrointestinal Disorders GENITOURINARY: Negative Genitourinary Disorders or Renal Disease MUSCULOSKELETAL: Positive Musculoskeletal Disorders and Osteoporosis ENT: Positive Ear Infection ENDOCRINE: Positive Endocrine Disorders and Diabetes Mellitus Type 1; Negative Diabetes Mellitus Type 2 HEMATOLOGIC: Negative Blood Disorders or Anemia OTHER HISTORY: Positive Anesthesia Reactions; Negative Blood Transfusions Surgical History SURGICAL: Positive Hysterectomy and Section Social History SMOKING STATUS: Never smoker Exam Vital Signs Temp Pulse Resp BP Pulse Ox O2 Del Method 98.3 F 79 19 159/110 H 96 Room Air 10/21/24 05:19 10/21/24 05:19 10/21/24 05:19 10/21/24 05:19 10/21/24 05:19 10/21/24 05:19 Narrative Exam Physical Exam: General: Alert, no acute distress. Skin: Warm, dry, intact, no obvious rash. Head: Normocephalic, atraumatic. Eye: Normal conjunctiva, PERRL. Throat: Oral mucosa moist. Cardiovascular: Regular rate and rhythm, no murmur, normal peripheral perfusion, no edema. Respiratory: Lungs are clear to auscultation, respirations non labored, no crackles, no wheezing. Gastrointestinal: Generalized, mild tenderness to palpation in all quadrants. S oft, non-distended. Psychiatric: Cooperative, appropriate affect. Neuro: Mental status: Alert, oriented, appropriately responding to commands. Speech/Language: Speech fluent, no word finding difficulty or paraphasic errors observed. Language-comprehension, repetition and naming intact. No dysarthria noted. Memory: Grossly recent and remote intact. Cranial Nerves: II: No visual deficits and visual arceo full to confrontation. Pupils 3-5 mm size BL round, reactive to light. III, IV, : EOMI, no nystagmus, no ptosis, no APD, smooth pursuit without saccadic intrusion, conjugate horizontal gaze intact. V: Reduced tactile sensation in V1, V2 and V3 distribution to crude touch. Jaw strength normal. VII: No facial asymmetry, able to smile symmetrically and BL good eye closure. VIII: Hearing intact in both ears per finger rubbing. IX, X: Symmetrical palate elevation, uvula in midline. XI: Symmetrical head rotation and shoulder shrug. IX, XII: Midline tongue protrusion. No fasciculations or atrophy noted. Sensory examination Crude touch in bilateral upper and lower extremity grossly intact. Motor examination No drift in bilateral upper extremity 5/5 strength in bilateral upper extremity 5/5 strength in bilateral lower extremity No Garcia's or ankle clonus Results: Labs 10/21/24 02:40 10/21/24 02:40 Labs: Short CBC 10/21/24 Range/Units 02:40 WBC 7.5 (3.6-11.0) Thou/mm3 Hgb 14.2 (12.0-16.0) g/dL Hct 40.3 (36.0-46.0) % Plt Count 347 (140-440) Thou/mm3 BMP 10/21/24 02:40 Sodium 134 L Potassium 3.8 Chloride 102 Carbon Dioxide 22.6 BUN 8 L Creatinine 0.9 Glucose 421 H* Calcium 9.5 Cardiac Enzymes 10/21/24 Range/Units 02:40 Troponin I < 0.020 (0.0-0.045) ng/mL Liver Function 10/21/24 Range/Units 02:40 Total Bilirubin 0.4 (0.3-1.2) mg/dL Direct Bilirubin < 0.1 (0.0-0.3) mg/dL AST 24 (0-34) U/L ALT 25 (10-49) U/L Alkaline Phosphatase 202 H (46-116) U/L Albumin 4.2 (3.5-5.0) gm/dL Urine 10/21/24 Range/Units 02:15 Urine Color Colorless A (Lt Yel-Yel) Urine Clarity Clear (Clear/Hazy) Urine pH 7.0 (5.0-7.0) Ur Specific [place] 1.024 (1.001-1.035) Urine Protein 1+ A (Neg - Trace) Urine Glucose (UA) 4+ A (Negative) Quality Measures Quality Measures none Medications Home Medications and Allergies Home Medications ?Medication ?Instructions ?Recorded ?Confirmed ?Type insulin glargine 100 unit/mL (3 30 unit subcut QDAY 02/26/20 History mL) subcutaneous pen (Basaglar KwikPen U-100 Insulin) insulin lispro 100 unit/mL 15 unit subcut AC 02/26/20 02/26/20 History subcutaneous pen (Humalog KwikPen (U-100) Insulin) Allergies Allergy/AdvReac Type Severity Reaction Status Date / Time No Known Allergies Allergy Verified 10/21/24 02:06 Visit Medications Acetaminophen (Acetaminophen 325 Mg Tablet) 650 mg PO Q6H PRN PRN Reason: PAIN SCALE 1-3 (mild Stop: 11/20/24 05:18 Dextrose (Dextrose 50%-Water Inj 50 Ml Syringe) 25 ml IV Q15MIN PRN PRN Reason: BG 50-70 responsive npo pt Stop: 11/20/24 05:23 Dextrose (Dextrose 50%-Water Inj 50 Ml Syringe) 50 ml IV Q15MIN PRN PRN Reason: BG <50 OR BG <70 & pt unresponsive Stop: 11/20/24 05:23 Glucagon (Glucagon Inj 1 Mg Vial) 1 mg IM Q15MIN PRN PRN Reason: BG <70, and no IV access Hydralazine HCl (Hydralazine Inj 20 Mg/Ml Vial) 10 mg IVP Q6H PRN PRN Reason: BP >200/105 w/ HR <75 Stop: 11/20/24 05:18 Ceftriaxone Sodium/Dextrose (Rocephin/D5w 1gm Iv Premix) 1 gm in 50 mls @ 100 mls/hr IV QDAY PEDRO Stop: 10/28/24 05:23 Magnesium Sulfate (Magnesium Sulfate Ivpb) 2 gm in 50 mls @ 25 mls/hr IV X1 ONE Stop: 10/21/24 07:25 Insulin Human Lispro (Insulin Lispro (Admelog) 1 Unit/0.01 Ml Unit) 0 unit [facility]; Protocol Stop: 11/20/24 07:29 Labetalol HCl (Labetalol Inj 5 Mg/Ml Vial 20 Ml) 10 mg IVP Q6H PRN PRN Reason: BP > 200/105 with HR >75 Stop: 11/20/24 05:18 Ondansetron HCl (Ondansetron Inj 2 Mg/Ml Inj 2 Ml) 4 mg IVP Q6H PRN; Protocol PRN Reason: NAUSEA OR VOMITING Stop: 11/20/24 05:18 Sennosides (Senna Tablet) 1 tab PO QDAY PRN; Protocol PRN Reason: constipation Stop: 11/20/24 05:18 Discontinued Medications Hydralazine HCl (Hydralazine Inj 20 Mg/Ml Vial) 10 mg IVP X1 ONE Stop: 10/21/24 02:23 Last Admin: 10/21/24 02:39 Dose: 10 mg Magnesium Sulfate (Magnesium Sulfate Ivpb) 2 gm in 50 mls @ 25 mls/hr IV X1 ONE Stop: 10/21/24 05:31 Last Admin: 10/21/24 04:10 Dose: 25 mls/hr Insulin Human Regular (Insulin Hum Regular 1 Unit/0.01 Ml (Per Unit)) 10 unit IV X1 ONE Stop: 10/21/24 03:32 Last Admin: 10/21/24 03:54 Dose: 10 unit Metoprolol Tartrate (Metoprolol Tartrate 25 Mg Tablet) 25 mg PO X1 ONE Stop: 10/21/24 02:23 Last Admin: 10/21/24 02:38 Dose: 25 mg Ondansetron HCl (Ondansetron Inj 2 Mg/Ml Inj 2 Ml) 4 mg IVP X1 ONE; Protocol Stop: 10/21/24 02:24 Last Admin: 10/21/24 02:39 Dose: 4 mg Assessment & Plan Assessment Génesis Belcher is a 59-year-old F with a PMH of HTN on lisinopril, T2DM on Humalog, Richey's palsy, and bleeding intramural uterine fibroids s/p hysterectomy 9 years ago who presents today with stroke-like symptoms. Patient was admitted for the work-up and management of stroke-like symptoms, hypertensive emergency, and pneumonia. #Stroke-like symptoms Plan: -Head MRI for stroke r/o -Allowing for permissive hypertension with IV hydralazine 10 mg q6HR prn and IV labetalol 10 mg q6HR prn if hypertension parameters exceeded -Ordered lipid panel -Ordered head of bed elevation -Ordered neuro check q4HR -Patient has been placed on NPO -Ordered echocardiogram -Ordered head and neck MRI w/ and w/out contrast #Hypertensive emergency Plan: -Allowing for permissive hypertension with IV hydralazine 10 mg q6HR prn and IV labetalol 10 mg q6HR prn if hypertension parameters exceeded #Pneumonia Plan: -Started IV ceftriaxone for lobar pneumonia #T2DM Upon admission, patient had a fingerstick blood glucose of 420 and UA showed 4+ urine glucose. Plan: -Started insulin sliding scale Hospital Management: Disposition: undergoing work-up and management of stroke r/o, hypertensive emergency, and pneumonia Diet: carbohydrate consistent low GI Prophylaxis: pantoprazole Bowel Prophylaxis: senna DVT Prophylaxis: SCDs CODE STATUS: Full Code I have examined the patient and conferred with my attending, Dr. Vee, and my senior resident, Dr. Montalvo, regarding them. Duncan Vigil, DO PGY-1 Internal Medicine Attending Provider Attestation/Addendum I reviewed labs, imaging, EKG, home medications and prior available records. Face to face evaluation was performed by me. I have personally examined the patient and discussed assessment and plan with the IM team. I reviewed the resident note and agree with the plan with exceptions as below. Patient is a 59-year-old female with history of hypertension and insulin- dependent diabetes who presented with multiple symptoms including left upper extremity numbness, nausea/vomiting, GERD like symptoms, headaches that were one-sided then generalized, and generalized weakness. She was found to have uncontrolled hypertension, critical hyperglycemia, and possible CVA CVA symptoms Insulin-dependent diabetes mellitus Uncontrolled hypertension Right upper lobe pneumonia CT head showed questionable hypodense area in the left cerebellum Ordered brain MRI per stroke protocol Loaded the patient with aspirin Consult neurology Started IV Protonix given the GERD symptoms Started IV ceftriaxone for the pneumonia Started Lantus plus sliding scale insulin for the hyperglycemia. Monitor fingersticks BP improved. Monitor BP
[2024-10-21 05:40] LABS: INR 0.9 (0.9-1.3); Partial Thromboplastin Time 27.3 Seconds (22.0-36.0); Prothrombin Time 10.0 Seconds (9.0-12.2)
[2024-10-21] MEDS: cefTRIAXone/D5w 1gm IV premix 1 GM/50 ML BAG IV ×2 (05:50→09:30)
--- NOTE | 2024-10-21 06:00 | PD.ADDCONS ---
Addendum Consultation Addendum Date of report being addended: 10/21/24 Narrative: Called back per request. Final reads not yet in chart but per notes and ED Dr. Morris, CT head was read as concerning for possible cerebellar hypodensity. CTA head/neck with R M2 area of severe stenosis. Unclear if either of these correlate with pt's symptoms of either L sided numbness per neurology note or bilateral numbness per ED note. Regardless, no acute intervention for stenosis (not LVO). She still needs an MRI, to clarify the CT/CTA findings and for possible unilateral symptoms. ASA 325 x 1 for now while pending further workup.
[2024-10-21 06:56] LABS: Glucose Estimated Average 338 mg/dL (80-131); Hemoglobin A1C 13.4 % Hgb (4.8-6.0)
--- NOTE | 2024-10-21 07:06 | PC.LAC ---
Received report from Dori RODARTE and assumed care of patient. Patient resting in bed with no signs of distress. Awaiting admit room.
--- NOTE | 2024-10-21 07:15 | PC.NURSE ---
Received report from Dori RODARTE and assumed care of patient. Patient resting in bed with no signs of distress nor complaints at this time.
[2024-10-21] MEDS: INSULIN LISPRO (AdmeLOG) 1 UNIT/0.01 ML UNIT SC ×4 (09:28→21:09)
[2024-10-21] MEDS: INSULIN GLARGINE (Lantus) 5 UNIT/0.05 ML (PER 5 UNITS) 10 UNIT SC (09:29)
--- NOTE | 2024-10-21 10:41 | PC.NURSE ---
REPORT GIVEN TO TERSSA RODARTE
--- NOTE | 2024-10-21 11:46 | ESPR_ITS ---
<Statement entered by Jacquelin Catalan MD - 11/01/24 17:55> I reviewed above note and agree with findings and plans. I have also personally examined the patient with medicine team and went over assessment and plan with medical team including international travel consultant and resident physician. Documentation for date of: 10/21/24 Patient is a 59-year-old female with a past medical history of hypertension and diabetes mellitus type 2 insulin-dependent, nonadherent to glargine, history of Richey's palsy and intramural uterine fibroids status post hysterectomy 9 years ago. Overnight admission with a chief complaint complaint of left-sided upper and lower extremity weakness as well as facial paresthesias on left side. Patient denied past medical history of trigeminal neuralgia or recurrence of Richey's palsy. Denied any falls or trauma. Denied any recent sick contacts. Denied any loss of consciousness. Patient examined at bedside. Improved paresthesias left side of face, and lower extremities of left-sided. Patient admitted for stroke rule out given left-sided upper and lower paresthesias. Pending A1c. Started on insulin sliding scale. Pending MRI and echo. Subjective Subjective Interval history: Patient was evaluated in the ED and bedside. Patient continued to endorse a bilateral headache in band-like distribution. Patient continued to endorse generalized abdominal pain. Upon examination, patient endorsed diminished sensation on the left side of the face, as well as the left sided-extremities. Patient was exhibited slight weakness on lifting left-sided extremities. Abdomen was not tender to palpation on examination. Pending MRI for stroke rule-out. Patient counseled on A1C of 13.4 and the effects it can have on the body. Started Lantis 15 units SC QD. Exam Vital Signs Temp Pulse Resp BP Pulse Ox O2 Del Method 98.4 F 70 18 123/66 95 Room Air 10/21/24 08:14 10/21/24 08:14 10/21/24 08:14 10/21/24 08:14 10/21/24 08:14 10/21/24 08:14 Narrative Exam General Appearance: Alert & Oriented X3, well-nourished female who is lying in bed in mild distress due to headache. HEENT: Skull symmetrical and atraumatic. Conjunctivae pink and moist. Pupils equal, round, reactive to light and accommodation (PERRL). External ear without lesion or discharge. Straight, nares patient, mucosa pink, no discharge. No thyroid nodule appreciated. No cervical lymphadenopathy. Cardio: Normal Rate and Rhythm with S1 and S2 heart sounds. No murmurs or extra heart sounds auscultated. No bruits on carotid auscultation. No peripheral edema or cyanosis. Lungs: Symmetric with good expansion. Chest and back non-tender. Breath sounds vesicular without crackles, wheezing or rhonchi Abdomen: Non-tender, Non-distended, Normal Reactive Bowel Sounds Neuro: Alert, cooperative, oriented to person, place, and time. Speech clear. CN grossly intact. Upper and lower right motor strength 5/5, normal right-sided sensation. Upper and lower left motor strength 4/5, diminished left-sided sensation, including face. Objective Labs 10/22/24 05:17 10/22/24 05:17 Labs: Laboratory Results - last 24 hr 10/21/24 10/21/24 10/21/24 02:15 02:40 03:57 WBC 7.5 RBC 4.80 Hgb 14.2 Hct 40.3 MCV 84 MCH 29.6 MCHC 35.2 RDW Std Deviation 37.4 Plt Count 347 Neut % (Auto) 61 Lymph % (Auto) 29 [place] % (Auto) 6 Eos % (Auto) 2 Baso % (Auto) 1 Neut # (Auto) 4.6 Lymph # (Auto) 2.2 [place]ster # (Auto) 0.5 Eos # (Auto) 0.2 Baso # (Auto) 0.1 Immature Gran # (Auto) 0.03 H Absolute Nucleated RBC 0.00 Immature Gran % 0 Nucleated RBC % 0 PT 10.0 INR 0.9 APTT 27.3 Sodium 134 L Potassium 3.8 Chloride 102 Carbon Dioxide 22.6 Anion Gap 9 BUN 8 L Creatinine 0.9 Estim Creat Clear Calc 68.2 eGFR > 60 BUN/Creatinine Ratio 9 L Glucose 421 H* Estimated Ave Glu mg/dL 338 H Hemoglobin A1c 13.4 H Calculated Osmolality 284 Calcium 9.5 Corrected Calcium 9.5 Magnesium 1.5 L Total Bilirubin 0.4 Direct Bilirubin < 0.1 AST 24 ALT 25 Alkaline Phosphatase 202 H Troponin I < 0.020 B-Natriuretic Peptide 22 Total Protein 7.2 Albumin 4.2 Globulin 3.0 Albumin/Globulin Ratio 1.4 Amylase 105 Lipase 44 TSH 1.85 Free T4 1.16 Ur Collection Type Clean Catch Urine Color Colorless A Urine Clarity Clear Urine pH 7.0 Ur Specific [place] 1.024 Urine Protein 1+ A Urine Glucose (UA) 4+ A Urine Ketones Negative Urine Blood Negative Urine Nitrite Negative Urine Bilirubin Negative Urine Urobilinogen (Auto) Negative Ur Leukocyte Esterase Negative Urine RBC 0 Urine WBC 0 Ur Squamous Epith Cells 2 Urine Bacteria None Ur Culture Indicated? Not Indicated Quality Measures Quality Measures none Assessment & Plan Assessment Current Active Medications: Generic Name Dose Route Start Last Admin Trade Name Freq PRN Reason Stop Dose Admin Acetaminophen 650 mg 10/21/24 05:19 Acetaminophen 325 Mg Tablet PO 11/20/24 05:18 Q6H PRN PAIN SCALE 1-3 (mild Dextrose 25 ml 10/21/24 05:24 Dextrose 50%-Water Inj 50 Ml Syringe IV 11/20/24 05:23 Q15MIN PRN BG 50-70 responsive npo pt Dextrose 50 ml 10/21/24 05:24 Dextrose 50%-Water Inj 50 Ml Syringe IV 11/20/24 05:23 Q15MIN PRN BG <50 OR BG <70 & pt unresponsive Glucagon 1 mg 10/21/24 05:24 Glucagon Inj 1 Mg Vial IM Q15MIN PRN BG <70, and no IV access Hydralazine HCl 10 mg 10/21/24 05:19 Hydralazine Inj 20 Mg/Ml Vial IVP 11/20/24 05:18 Q6H PRN BP >200/105 w/ HR <75 Ceftriaxone Sodium/Dextrose 1 gm in 50 mls @ 100 mls/hr 10/21/24 05:24 10/21/24 09:30 Rocephin/D5w 1gm Iv Premix IV 10/28/24 05:23 100 mls/hr QDAY [facility] Administration Insulin Glargine 15 unit 10/22/24 09:00 Insulin Glargine (Lantus) 5 Unit/0.05 Ml (Per 5 Units) SC 11/21/24 08:59 QDAY [facility] Insulin Human Lispro 0 unit 10/21/24 11:11 Insulin Lispro (Admelog) 1 Unit/0.01 Ml Unit SC 11/20/24 07:29 ACHS [facility] Protocol Labetalol HCl 10 mg 10/21/24 05:19 Labetalol Inj 5 Mg/Ml Vial 20 Ml IVP 11/20/24 05:18 Q6H PRN BP > 200/105 with HR >75 Ondansetron HCl 4 mg 10/21/24 05:19 Ondansetron Inj 2 Mg/Ml Inj 2 Ml IVP 11/20/24 05:18 Q6H PRN NAUSEA OR VOMITING Protocol Pantoprazole Sodium 40 mg 10/21/24 09:00 10/21/24 09:30 Pantoprazole Inj 40 Mg Vial IVP 11/20/24 08:59 40 mg QDAY [facility] Administration Sennosides 1 tab 10/21/24 05:19 Senna Tablet PO 11/20/24 05:18 QDAY PRN constipation Protocol Plan Plan Génesis Belcher is a 59-year-old F with a PMH of HTN on lisinopril, T2DM on Humalog, Richey's palsy, and bleeding intramural uterine fibroids s/p hysterectomy 9 years ago who presents today with stroke-like symptoms. Patient was admitted for the work-up and management of stroke-like symptoms, hypertensive emergency, and pneumonia. #Stroke Rule Out #Left sided Paresthesia #Left sided Weakness Patient's last known well time was around 0130 10/21. Patient presented with symptoms headache and neck pain; she endorsed a previous similar episode. Per patient's daughter, she was confused and not answering questions as her usual self. NIH stroke scale: 2, per teleneurology Dr. Chavez, appreciate recommendations. Aspirin 325 mg x1 given, per teleneurology Dr. Dozier 10/21 CT Head: Did not definitively demonstrate any acute ischemic/hemorrhagic change, concern for possible hypodense attenuation left cerebellum 10/21 CTA Head: Possible stenosis distal M2 segment of right MCA Plan: -Ordered head and neck MRI w/ and w/out contrast -Allowing for permissive hypertension with IV hydralazine 10 mg q6HR prn and IV labetalol 10 mg q6HR prn if hypertension parameters exceeded -Ordered lipid panel, pending results -Ordered head of bed elevation -Ordered neuro check q4HR -Patient has been placed on NPO -Ordered echocardiogram #Uncontrolled Type 2 Diabetes Mellitus, insulin dependent #Abdominal Pain #Possible Gastroparesis Patient's glucose measured 421 in the ED. Patient's FSBG measured 340 on 10/21. Patient's average glucose over their previous visits is roughly 338. Patient was only on Humalog at home. Furthermore, patient complains of generalized abdominal pain, which can be related to gastroparesis caused by uncontrolled diabetes over many years. 10/21 Hemoglobin A1C: 13.4 Plan: -Insulin Sliding Scale -Start Lantis 15 unit SC QD -Monitor w/FSBG and A1C #Hypertensive emergency #Hypertension Patient has a long history of hypertension. Patient stated that she is on Lisinopril 5 mg PO QD for treatment Patient presented to the ED overnight 10/21 with BP of 214/116. Patient's blood pressure stabilized with administration of Hydralazine 10 mg IVPx1 and Metoprolol tartrate 25 mg POx1 Plan: -Restart home medications as necessary, within the next 24 hours. -Allowing for permissive hypertension with IV hydralazine 10 mg q6HR prn and IV labetalol 10 mg q6HR prn if hypertension parameters exceeded #Pulmonary Nodular Densities Nodular densities noted on CT chest upon admission. Patient denied sick contacts, remained afebrile, and no leukocytosis noted, less likely secondary to pneumonia, ceftriaxone vs autoimmune grandulomatosis disease vs cocci given region. WBC 6.2. Diagnostics: 10/21 CT chest demonstrated findings consistent with possible mild pneumonia in the right upper lobe Plan: -Continue Ceftriaxone 1 mg IV QD (10/21/2024) -continue to monitor for signs of infection #Incidental finding on CT, Hepatomegaly Incidental finding of hepatomegaly on CT abdomen. Given past medical history of diabetes mellitus type 2 insulin dependent and obesity, MASH can not be ruled out, advised to make dietary changes vs alcohol induced, less likely as patient denied alcohol use disorder vs hepatitis. Diagnostics: Total Bili <0.1, AST 24, ALT 25 CT Abdomen (10/21/2024) demonstrated hepatomegaly (liver measuring 24 cm) Plan: -Monitor and trend liver enzymes, order hepatitis panel if trending up -Outpatient follow up Hospital Management: Disposition: undergoing work-up and management of stroke r/o and hypertensive emergency, pending MRI and Echo Diet: carbohydrate consistent low GI Prophylaxis: Protonix 40 mg IVP QD Bowel Prophylaxis: senna DVT Prophylaxis: SCDs CODE STATUS: Full Code Case reviewed with attending Dr. Catalan and senior resident Dr. Thacker. Rubi Segovia MS-4 - The patient's plan was discussed with attending Dr. Alayna Thacker MD PGY2 Internal Medicine Attending Provider Attestation/Addendum I have discussed and was present for the essential components of the history, physical examination, diagnosis, and treatment plan with the resident. I agree with the patient's care as documented by the resident and amended herein by me. Jacquelin Catalan MD. Although this document has been carefully reviewed, there may still be some phonetic and other typographical errors. These errors are purely grammatical due to imperfections in the software program and should not be construed in any way to compromise the substance of the patient's medical care during this visit.
--- NOTE | 2024-10-21 12:04 | ESCONSULT_ITS ---
HPI Data of Consult Requesting Physician: Rudy Vee MD Admitting Provider: Rudy Vee MD Attending Provider: Rudy Vee MD Primary Care Provider: Physician No Primary/Family Consult Narrative History of present illness: Ms. Belcher is a 59-year-old F with PMH of HTN on lisinopril, T2DM on Humalog, Richey's palsy, and bleeding intramural uterine fibroids s/p hysterectomy 9 years ago who presented with sharp retro-orbital headache (worse supine, fluctuates), left-sided numbness, posterior neck pain, palpitations, shortness of breath, chest pain, nausea, dry cough. LKAW 01:30 AM 10/21. Daughter reports patient has been more confused. Similar episode in the past 2/2 bladder infection. Also reports episodes of abdominal burning and apparent hot flashes, chills, unexplained weight loss (20 pound loss in 1 month), appetite loss, night sweats, rhinorrhea, blurred vision in right eye, chest pressure or heaviness, palpitations, orthopnea, congestion, abdominal pain, heartburn, and constipation with hard stools. She denies any recent travel or sick contacts. She endorsed recently having eye hemorrhaging during a recent dental teeth cleaning session that has left her vision blurred in the left eye by the blood obscuring her field of vision. In the ED: AOx3. BP 214/116. Glucose 421. Negative serial trops. CT c/a/p hepatomegaly, irregular liver contour. Stroke alert: Initial NIHSS 2 (partial hemianopia, Mild-Moderate Loss: Less Sharp/More Dull). H&P PE: Reduced tactile sensation in V1, V2 and V3 distribution to crude touch. CT head w/O: Negative for acute hemorrhage, possible cerebellar hypodensity CTA: Occlusion of right MCA M2 segment. No significant neck arterial stenosis Pending MRI Given ASA 325 mg x1 Admitted form stroke w/u. Given insulin, metoprolol, labetalol, hydralazine, mag sulfate x1. Started ceftriaxone 1g daily. Patient evaluated at bedside. She reports headache, left-sided weakness, generalized paresthesias, neck pain, dry cough, shortness of breath, abdominal pain. She reports that she lost her insurance in 2023 and was only recently able to get [employer] in July. She was not taking her insulin or lisinopril when she did not have insurance. She reports that her blood glucose at home is usually high in the 200s, and she lives in an active lifestyle. 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 She denies history of smoking, alcohol use, recreational drug use. She reports that she feels slightly better since coming to the hospital but her headache has remained stable. She does not take any medications at home for the headache. She denies any recent illnesses or recent travel. Of note she was previously admitted to the hospital for infection after she acquired a foot wound after stepping on a nail. Of note, patient reports that she developed chest pain with statin. cc:: cc: Rudy Vee MD Review of Systems Review of Systems Narrative Review of Systems: 14 point ROS negative other than HPI Exam Vital Signs Temp Pulse Resp BP Pulse Ox O2 Del Method 98.4 F 70 18 123/66 95 Room Air 10/21/24 08:14 10/21/24 08:14 10/21/24 08:14 10/21/24 08:14 10/21/24 08:14 10/21/24 08:14 Narrative Exam General: No acute distress, well nourished Eye: PERRL, EOMI, normal conjunctiva, no scleral icterus HENT: Normocephalic, atraumatic, hearing intact to conversation at normal volume, moist oral mucosa Neck: Supple, non-tender, no JVD, no lymphadenopathy Lungs: Non-labored respirations, symmetric chest rise Heart: Peripheral pulses intact bilaterally Abdomen: Soft, non-tender, non-distended Musculoskeletal: Normal range of motion and strength Skin: Skin is warm, dry, no rashes or lesions. Psychiatric: Cooperative, appropriate mood and affect Neurologic: Mental status: Orientation: Oriented to person, place, time, and situation Communication: Patient is cooperative and can follow simple instructions Language: Speech fluent, normal rate and volume, comprehension intact Cranial nerves: CN II: Visual arceo intact CN III: Pupils equal, round, and reactive to light CN III, IV, : No gaze deviation, no nystagmus Horizontal pursuit: intact Vertical pursuit: intact Ptosis: none CN V: Facial sensation to light touch intact bilaterally at the forehead, cheeks, and jaw line R>L CN VII: Face symmetric, no facial droop appreciated CN VIII: Able to hear and respond to conversation at normal volume, intact to finger rub CN IX, X: Palate elevation symmetric, uvula midline CN XI: Head turn and shoulder shrug strong, symmetric bilaterally CN XII: Normal tongue protrusion without deviation, no fasciculations Motor: Normal bulk and tone No atrophy No abnormal movements or fasciculations Muscle strength: Shoulder abduction: R 5/5 L 5/5 Elbow flexion: R 5/5 L 5/5 Elbow extension: R 5/5 L 5/5 Hip flexion: R 5/5 L 5/5 Hip extension: R 5/5 L 5/5 Knee flexion: R 5/5 L 5/5 Knee extension: R 5/5 L 5/5 Sensory: Light touch intact in UE and LE R>L Reflexes: Biceps (C5-6): R 2+ L 2+ Triceps (C7-8): R 2+ L 2+ Patellae (L3-4): R 2+ L 2+ Cerebellum: RUE: No dysmetria (finger to nose) LUE: No dysmetria (finger to nose) RLE: No dysmetria (heel to be) LLE: No dysmetria (heel to be) Gait: Normal stance, stride length, and arm swing Normal pivot turn without instability Results Labs 10/22/24 05:17 10/22/24 05:17 Labs: Short CBC 10/21/24 Range/Units 02:40 WBC 7.5 (3.6-11.0) Thou/mm3 Hgb 14.2 (12.0-16.0) g/dL Hct 40.3 (36.0-46.0) % Plt Count 347 (140-440) Thou/mm3 BMP 10/21/24 02:40 Sodium 134 L Potassium 3.8 Chloride 102 Carbon Dioxide 22.6 BUN 8 L Creatinine 0.9 Glucose 421 H* Calcium 9.5 Cardiac Enzymes 10/21/24 Range/Units 02:40 Troponin I < 0.020 (0.0-0.045) ng/mL Liver Function 10/21/24 Range/Units 02:40 Total Bilirubin 0.4 (0.3-1.2) mg/dL Direct Bilirubin < 0.1 (0.0-0.3) mg/dL AST 24 (0-34) U/L ALT 25 (10-49) U/L Alkaline Phosphatase 202 H (46-116) U/L Albumin 4.2 (3.5-5.0) gm/dL Urine 10/21/24 Range/Units 02:15 Urine Color Colorless A (Lt Yel-Yel) Urine Clarity Clear (Clear/Hazy) Urine pH 7.0 (5.0-7.0) Ur Specific [place] 1.024 (1.001-1.035) Urine Protein 1+ A (Neg - Trace) Urine Glucose (UA) 4+ A (Negative) Quality Measures Quality Measures none Medications Home Medications and Allergies Home Medications ?Medication ?Instructions ?Recorded ?Confirmed ?Type insulin lispro 100 unit/mL 15 unit subcut AC 02/26/20 10/22/24 History subcutaneous pen (Humalog KwikPen (U-100) Insulin) lisinopril 5 mg tablet 5 mg PO DAILY 10/22/2410/22 History Allergies Allergy/AdvReac Type Severity Reaction Status Date / Time No Known Allergies Allergy Verified 10/21/24 02:06 Visit Medications Acetaminophen (Acetaminophen 325 Mg Tablet) 650 mg PO Q6H PRN PRN Reason: PAIN SCALE 1-3 (mild Stop: 11/20/24 05:18 Dextrose (Dextrose 50%-Water Inj 50 Ml Syringe) 25 ml IV Q15MIN PRN PRN Reason: BG 50-70 responsive npo pt Stop: 11/20/24 05:23 Dextrose (Dextrose 50%-Water Inj 50 Ml Syringe) 50 ml IV Q15MIN PRN PRN Reason: BG <50 OR BG <70 & pt unresponsive Stop: 11/20/24 05:23 Glucagon (Glucagon Inj 1 Mg Vial) 1 mg IM Q15MIN PRN PRN Reason: BG <70, and no IV access Hydralazine HCl (Hydralazine Inj 20 Mg/Ml Vial) 10 mg IVP Q6H PRN PRN Reason: BP >200/105 w/ HR <75 Stop: 11/20/24 05:18 Ceftriaxone Sodium/Dextrose (Rocephin/D5w 1gm Iv Premix) 1 gm in 50 mls @ 100 mls/hr IV QDAY [facility] Stop: 10/28/24 05:23 Last Admin: 10/21/24 09:30 Dose: 100 mls/hr Insulin Glargine (Insulin Glargine (Lantus) 5 Unit/0.05 Ml (Per 5 Units)) 15 unit SC QDAY [facility] Stop: 11/21/24 08:59 Insulin Human Lispro (Insulin Lispro (Admelog) 1 Unit/0.01 Ml Unit) 0 unit SC [facility]; Protocol Stop: 11/20/24 07:29 Labetalol HCl (Labetalol Inj 5 Mg/Ml Vial 20 Ml) 10 mg IVP Q6H PRN PRN Reason: BP > 200/105 with HR >75 Stop: 11/20/24 05:18 Ondansetron HCl (Ondansetron Inj 2 Mg/Ml Inj 2 Ml) 4 mg IVP Q6H PRN; Protocol PRN Reason: NAUSEA OR VOMITING Stop: 11/20/24 05:18 Pantoprazole Sodium (Pantoprazole Inj 40 Mg Vial) 40 mg IVP QDAY [facility] Stop: 11/20/24 08:59 Last Admin: 10/21/24 09:30 Dose: 40 mg Sennosides (Senna Tablet) 1 tab PO QDAY PRN; Protocol PRN Reason: constipation Stop: 11/20/24 05:18 Discontinued Medications Aspirin (Aspirin 325 Mg Tablet) 325 mg PO X1 ONE Stop: 10/21/24 06:03 Last Admin: 10/21/24 06:23 Dose: 325 mg Hydralazine HCl (Hydralazine Inj 20 Mg/Ml Vial) 10 mg IVP X1 ONE Stop: 10/21/24 02:23 Last Admin: 10/21/24 02:39 Dose: 10 mg Magnesium Sulfate (Magnesium Sulfate Ivpb) 2 gm in 50 mls @ 25 mls/hr IV X1 ONE Stop: 10/21/24 05:31 Last Infusion: 10/21/24 06:12 Dose: Infused Magnesium Sulfate (Magnesium Sulfate Ivpb) 2 gm in 50 mls @ 25 mls/hr IV X1 ONE Stop: 10/21/24 07:25 Last Infusion: 10/21/24 08:25 Dose: Infused Insulin Glargine (Insulin Glargine (Lantus) 5 Unit/0.05 Ml (Per 5 Units)) 10 unit SC QDAY [facility] Stop: 11/20/24 08:59 Last Admin: 10/21/24 09:29 Dose: 10 unit Insulin Glargine (Insulin Glargine (Lantus) 5 Unit/0.05 Ml (Per 5 Units)) 5 unit SC X1 ONE Stop: 10/21/24 11:11 Insulin Human Lispro (Insulin Lispro (Admelog) 1 Unit/0.01 Ml Unit) 0 unit SC ACHS [facility]; Protocol Stop: 11/20/24 07:29 Last Admin: 10/21/24 09:28 Dose: 4 unit Insulin Human Regular (Insulin Hum Regular 1 Unit/0.01 Ml (Per Unit)) 10 unit IV X1 ONE Stop: 10/21/24 03:32 Last Admin: 10/21/24 03:54 Dose: 10 unit Metoprolol Tartrate (Metoprolol Tartrate 25 Mg Tablet) 25 mg PO X1 ONE Stop: 10/21/24 02:23 Last Admin: 10/21/24 02:38 Dose: 25 mg Ondansetron HCl (Ondansetron Inj 2 Mg/Ml Inj 2 Ml) 4 mg IVP X1 ONE; Protocol Stop: 10/21/24 02:24 Last Admin: 10/21/24 02:39 Dose: 4 mg Assessment & Plan Plan # Right MCA M2 segment occlusion # Stroke w/u Hx stroke/TIA: none Hx afib: none Initial symptoms: harp retro-orbital headache (worse supine, fluctuates), left- sided numbness, posterior neck pain, palpitations, shortness of breath, chest pain, nausea, dry cough. Abdominal burning and apparent hot flashes, chills, unexplained weight loss (20 pound loss in 1 month), appetite loss, night sweats, rhinorrhea, blurred vision in right eye, chest pressure or heaviness, palpitations, orthopnea, congestion, abdominal pain, heartburn, and constipation with hard stools. LKAW: 01:30 on 10/21 Initial NIHSS: 2 (partial hemianopia, Mild-Moderate Loss: Less Sharp/More Dull). H&P PE: Reduced tactile sensation in V1, V2 and V3 distribution to crude touch. Inital BP: 214/116 Initial glucose: 421 UDS: pending A1C: 13.4 Lipids: pending TSH: 1.85 WNL Free T4: 1.16 WNL Serial troponin: negative CT head w/o: Negative for acute hemorrhage, possible cerebellar hypodensity CTA head/neck w/: Occlusion of right MCA M2 segment. No significant neck arterial stenosis MRI/MRA w/ and w/o: pending TTE: pending EKG: pending Meds given: ASA 325 mg x1 ABCD2 score (risk of stroke after suspected TIA): 6 (high risk) ASCVD: unable to calculate, pending lipids Patient reported chest pain with statins Plan: - Pending MRI/MRA w/ and w/o - Pending lipids, UDS, EKG, TTE - Start Asprin 81 mg # Hypertension # Hypertensive emergency Home med: Lisinopril 5 mg daily Plan: - Management per primary # Type 2 diabetes mellitus # Acute Hyperglycemia Home med: Humalog Patient had no insurance for several months, unable to take insulin at that time. Recently restarted on mediactions in July 2024 Initial glucose: 421 UA: 1+ protein, 4+ glucose Plan: - Management per primary # Left eye blurry vision Eye hemorrhaging during a recent dental teeth cleaning session No focal neuro deficit Plan: - CTM # Hepatomegaly AST, ALT WNL Alk phos: 202 Amylase, lipase WNL CT c/a/p hepatomegaly, irregular liver contour. Plan: - Management per primary #Community Acquired Pneumonia 10/21 CT chest demonstrated findings consistent with possible mild pneumonia in the right upper lobe Plan: - Management per primary - Ceftriaxone 1 mg IV QD Plan discussed with Dr. Jorge Arciniega, PGY1 Attending Provider Attestation/Addendum I personally have seen and examined the patient at the bedside and I agreed with the resident findings, assessment and plan of care. Reassurance given to the patient regarding the negative workup so far. Will follow-up with MRI brain to rule out acute ischemic infarction. Advised about the importance of vascular risk factors control specially diabetes. Continue with aspirin and statin for now.
[2024-10-21] MEDS: INSULIN GLARGINE (Lantus) 5 UNIT/0.05 ML (PER 5 UNITS) SC (12:07)
[2024-10-21] MEDS: ACETAMINOPHEN 325 MG TABLET 650 MG PO (15:37)
[2024-10-22] VITALS: BP 119/67; PULSE 65; PULSE 68; RESP 15; TEMP 36.3; O2SAT 94
--- NOTE | 2024-10-22 | XR_ITS ---
Examinations: MRI Brain without intravenous contrast. MRI brain with intravenous contrast MRA brain with intravenous contrast. MRA brain without intravenous contrast MRA neck with intravenous contrast Date and time of exam: October 22, 2024 0910 hours INDICATIONS: Headaches confusion cardiac palpitations, high blood pressure beginning yesterday Technique: Multiple axial and sagittal images of the brain have been obtained Siemens high-resolution 1.5 Narda short bore scanner is utilized. Sagittal sections, T1-weighted, TR 500, TE 14 Axial sections proton density and T2-weighted, TR 3,000, TE 34, TR 3,000, TE 91 Inversion recovery axial images, TR 9,260, TE 111, TI 2,500 Diffusion weighted images, axial sections, TR 4,800, TE 128, B value 1,000 Axial sections, ADC map, TR 4,800, TE 128. Contrast images have been obtained post intravenous 19 cc Gadolinium. T1-weighted axial and coronal images post contrast have been obtained. Angiographic images of neck and brain are obtained pre and post contrast. 3-D post processing performed, including brain, extracranial neck arterial maximum intensity projections Findings: Sellaturcica is not enlarged. The optic chiasm and infundibular stalk are not remarkable. Prepontine and interpeduncular cisterns are not enlarged. No localized enlargement of the medulla or herbie. Fourth ventricle and cerebellar tonsils normal in position. Subacute hemorrhage is not seen. Fourth ventricle is midline. Mass in the cerebellopontine angle region is not evident. 7th and 8th nerve complexes exhibits symmetry. Globes are symmetrical with no retro-orbital mass. Increased white matter signal evident, punctate foci increased signal in the frontal parietal white matter Diffusion-weighted images demonstrateno focus of restricted diffusion. Mass-effect upon the ventricular system is not identified. Abnormal contrast enhancement is not seen. MRA brain carotid images no carotid stenoses, no large vessel cerebral occlusions Impression: Negative for acute hemorrhage mass effect or midline shift No acute infarct. Scattered punctate foci increased signal in the frontal parietal white matter, demyelinating disease pattern No carotid significant stenoses No cerebral large vessel arterial occlusions
[2024-10-22 04:00] VITALS: BP 133/71; PULSE 65; PULSE 69; RESP 14; TEMP 36.3; O2SAT 94
[2024-10-22 04:42] LABS: Amphetamine/Methamp Scrn,U Negative (Negative); Barbiturate Screen,Urine Negative (Negative); Benzodiazepines Screen,Urine Negative (Negative); Benzoylecgonine Screen, Ur Negative (Negative); Fentanyl Screen,Urine Negative (Negative); Opiate Screen,Urine Negative (Negative); THC Screen,Urine Negative (Negative)
[2024-10-22 06:00] VITALS: BMI 35.3
[2024-10-22 06:21] LABS: Basophils # (Auto) 0.1 Thou/mm3 (0.0-0.2); Basophils % (Auto) 1 % (0-2.5); Eosinophils # (Auto) 0.2 Thou/mm3 (0.0-0.5); Eosinophils % (Auto) 3 % (0-10); Hematocrit 37.3 % (36.0-46.0); Hemoglobin 13.4 g/dL (12.0-16.0); Immature Granulocytes Auto 0.01 Thou/mm3 (0.00-0.00); Lymphocytes # (Auto) 2.5 Thou/mm3 (1.0-4.8); Lymphocytes % (Auto) 40 % (10-50); Mean Corpuscular HGB Conc 35.9 g/dl (31.0-37.0); Mean Corpuscular Hemoglobin 29.5 pg (25.0-35.0); Mean Corpuscular Volume 82 fL (80-100); Monocytes # (Auto) 0.4 Thou/mm3 (0.0-0.8); Monocytes % (Auto) 7 % (0-12); Neutrophils # (Auto) 3.1 Thou/mm3 (1.8-7.7); Neutrophils % (Auto) 50 % (37-80); Nucleated Red Blood Cell # 0.00 Thou/mm3 (0.00-0.00); Nucleated Red Blood Cell % 0 /100 WBC (0); Platelet Count 283 Thou/mm3 (140-440); RDW Standard Deviation 38.6 fL (36.4-46.3); Red Blood Count 4.54 Miln/mm3 (4.00-5.20); White Blood Count 6.2 Thou/mm3 (3.6-11.0)
[2024-10-22 07:10] LABS: Alanine Aminotransferase 20 U/L (10-49); Albumin, Serum 3.7 gm/dL (3.5-5.0); Albumin/Globulin Ratio 1.4 (1.2-2.2); Anion Gap 6 (7-16); Aspartate Amino Transferase 22 U/L (0-34); BUN/Creatinine Ratio 13 Ratio (12-20); Bilirubin,Total 0.6 mg/dL (0.3-1.2); Blood Urea Nitrogen 10 mg/dL (9-23); Calcium 9.3 mg/dL (8.3-10.6); Calcium (Corrected) 9.5 mg/dL (8.5-10.1); Carbon Dioxide 25.6 mMol/L (20.0-31.0); Cardiac Risk Estimate 4.4 RATIO (3.7-5.6); Chloride 105 mMol/L (98-107); Cholesterol 195 mg/dL (132-200); Creatinine (Component) 0.8 mg/dL (0.6-1.3); Estimated Creatinine Clearance 76.7 mL/min (>60); Globulin 2.7 gm/dL (2.3-3.5); Glucose 306 mg/dL (74-106); HDL Cholesterol 44 mg/dL (40-60); LDL Cholesterol,Calculated 101 mg/dL (0-130); Osmolality,Calculated 284 (275-295); Potassium 4.2 mMol/L (3.4-5.1); Sodium 137 mMol/L (136-145); Total Protein 6.4 gm/dL (5.7-8.2); Triglycerides 250 mg/dL (30-150); eGFR > 60 See Note
[2024-10-22 07:12] LABS: Alkaline Phosphatase 104 U/L (46-116)
--- NOTE | 2024-10-22 07:36 | PD.RESPRO ---
Documentation for date of: 10/22/24 Exam Vital Signs Temp Pulse Resp BP Pulse Ox O2 Del Method 97.4 F 65 14 133/71 H 94 L Room Air 10/22/24 04:00 10/22/24 04:00 10/22/24 04:00 10/22/24 04:00 10/22/24 04:00 10/22/24 04:00 Narrative Exam General: No acute distress, well nourished Eye: PERRL, EOMI, normal conjunctiva, no scleral icterus HENT: Normocephalic, atraumatic, hearing intact to conversation at normal volume, moist oral mucosa Neck: Supple, non-tender, no JVD, no lymphadenopathy Lungs: Non-labored respirations, symmetric chest rise Heart: Peripheral pulses intact bilaterally Abdomen: Soft, non-tender, non-distended Musculoskeletal: Normal range of motion and strength Skin: Skin is warm, dry, no rashes or lesions. Psychiatric: Cooperative, appropriate mood and affect Neurologic: Mental status: Orientation: Oriented to person, place, time, and situation Communication: Patient is cooperative and can follow simple instructions Language: Speech fluent, normal rate and volume, comprehension intact Cranial nerves: CN II: Visual arceo intact CN III: Pupils equal, round, and reactive to light CN III, IV, : No gaze deviation, no nystagmus Horizontal pursuit: intact Vertical pursuit: intact Ptosis: none CN V: Facial sensation to light touch intact bilaterally at the forehead, cheeks, and jaw line R>L CN VII: Face symmetric, no facial droop appreciated CN VIII: Able to hear and respond to conversation at normal volume, intact to finger rub CN IX, X: Palate elevation symmetric, uvula midline CN XI: Head turn and shoulder shrug strong, symmetric bilaterally CN XII: Normal tongue protrusion without deviation, no fasciculations Motor: Normal bulk and tone No atrophy No abnormal movements or fasciculations Muscle strength: Shoulder abduction: R 5/5 L 5/5 Elbow flexion: R 5/5 L 5/5 Elbow extension: R 5/5 L 5/5 Hip flexion: R 5/5 L 5/5 Hip extension: R 5/5 L 5/5 Knee flexion: R 5/5 L 5/5 Knee extension: R 5/5 L 5/5 Sensory: Light touch intact in UE and LE R>L Reflexes: Biceps (C5-6): R 2+ L 2+ Triceps (C7-8): R 2+ L 2+ Patellae (L3-4): R 2+ L 2+ Cerebellum: RUE: No dysmetria (finger to nose) LUE: No dysmetria (finger to nose) RLE: No dysmetria (heel to be) LLE: No dysmetria (heel to be) Gait: Normal stance, stride length, and arm swing Normal pivot turn without instability Objective Labs 10/22/24 05:17 10/22/24 05:17 Labs: Laboratory Results - last 24 hr 10/22/24 10/22/24 04:00 05:17 WBC 6.2 RBC 4.54 Hgb 13.4 Hct 37.3 MCV 82 MCH 29.5 MCHC 35.9 RDW Std Deviation 38.6 Plt Count 283 D Neut % (Auto) 50 Lymph % (Auto) 40 [place] % (Auto) 7 Eos % (Auto) 3 Baso % (Auto) 1 Neut # (Auto) 3.1 Lymph # (Auto) 2.5 [place]ctor # (Auto) 0.4 Eos # (Auto) 0.2 Baso # (Auto) 0.1 Immature Gran # (Auto) 0.01 H Absolute Nucleated RBC 0.00 Immature Gran % 0 Nucleated RBC % 0 Sodium 137 Potassium 4.2 Chloride 105 Carbon Dioxide 25.6 Anion Gap 6 L BUN 10 Creatinine 0.8 Estim Creat Clear Calc 76.7 eGFR > 60 BUN/Creatinine Ratio 13 Glucose 306 H D Calculated Osmolality 284 Calcium 9.3 Corrected Calcium 9.5 Total Bilirubin 0.6 AST 22 ALT 20 Alkaline Phosphatase 104 D Total Protein 6.4 Albumin 3.7 D Globulin 2.7 Albumin/Globulin Ratio 1.4 Triglycerides 250 H Cholesterol 195 LDL Cholesterol, Calc 101 HDL Cholesterol 44 Cholesterol/HDL Ratio 4.4 Urine Opiates Screen Negative Urine Fentanyl Screen Negative Ur Barbiturates Screen Negative U Amphetamin/Meth Scrn Negative U Benzodiazepines Scrn Negative U Cocaine Metab Screen Negative U Marijuana (THC) Screen Negative Quality Measures Quality Measures none Assessment & Plan Assessment Current Active Medications: Generic Name Dose Route Start Last Admin Trade Name Freq PRN Reason Stop Dose Admin Acetaminophen 650 mg 10/21/24 05:19 10/21/24 15:37 Acetaminophen 325 Mg Tablet PO 11/20/24 05:18 650 mg Q6H PRN Administration PAIN SCALE 1-3 (mild Dextrose 25 ml 10/21/24 05:24 Dextrose 50%-Water Inj 50 Ml Syringe IV 11/20/24 05:23 Q15MIN PRN BG 50-70 responsive npo pt Dextrose 50 ml 10/21/24 05:24 Dextrose 50%-Water Inj 50 Ml Syringe IV 11/20/24 05:23 Q15MIN PRN BG <50 OR BG <70 & pt unresponsive Glucagon 1 mg 10/21/24 05:24 Glucagon Inj 1 Mg Vial IM Q15MIN PRN BG <70, and no IV access Hydralazine HCl 10 mg 10/21/24 05:19 Hydralazine Inj 20 Mg/Ml Vial IVP 11/20/24 05:18 Q6H PRN BP >200/105 w/ HR <75 Ceftriaxone Sodium/Dextrose 1 gm in 50 mls @ 100 mls/hr 10/21/24 05:24 10/21/24 09:30 Rocephin/D5w 1gm Iv Premix IV 10/28/24 05:23 100 mls/hr QDAY [facility] Administration Insulin Glargine 15 unit 10/22/24 09:00 Insulin Glargine (Lantus) 5 Unit/0.05 Ml (Per 5 Units) SC 11/21/24 08:59 QDAY [facility] Insulin Human Lispro 0 unit 10/21/24 11:11 10/21/24 21:09 Insulin Lispro (Admelog) 1 Unit/0.01 Ml Unit SC 11/20/24 07:29 4 unit ACHS [facility] Administration Protocol Labetalol HCl 10 mg 10/21/24 05:19 Labetalol Inj 5 Mg/Ml Vial 20 Ml IVP 11/20/24 05:18 Q6H PRN BP > 200/105 with HR >75 Lisinopril 10 mg 10/22/24 09:00 Lisinopril 2.5 Mg Tablet PO 11/21/24 09:00 QDAY [facility] Ondansetron HCl 4 mg 10/21/24 05:19 Ondansetron Inj 2 Mg/Ml Inj 2 Ml IVP 11/20/24 05:18 Q6H PRN NAUSEA OR VOMITING Protocol Pantoprazole Sodium 40 mg 10/21/24 09:00 10/21/24 09:30 Pantoprazole Inj 40 Mg Vial IVP 11/20/24 08:59 40 mg QDAY [facility] Administration Sennosides 1 tab 10/21/24 05:19 Senna Tablet PO 11/20/24 05:18 QDAY PRN constipation Protocol Plan # Right MCA M2 segment occlusion # Stroke w/u Hx stroke/TIA: none Hx afib: none Initial symptoms: harp retro-orbital headache (worse supine, fluctuates), left-sided numbness, posterior neck pain, palpitations, shortness of breath, chest pain, nausea, dry cough. Abdominal burning and apparent hot flashes, chills, unexplained weight loss (20 pound loss in 1 month), appetite loss, night sweats, rhinorrhea, blurred vision in right eye, chest pressure or heaviness, palpitations, orthopnea, congestion, abdominal pain, heartburn, and constipation with hard stools. LKAW: 01:30 on 10/21 Initial NIHSS: 2 (partial hemianopia, Mild-Moderate Loss: Less Sharp/More Dull). H&P PE: Reduced tactile sensation in V1, V2 and V3 distribution to crude touch. Inital BP: 214/116 Initial glucose: 421 UDS: negative A1C: 13.4 Lipids: Triglycerides high 250, Cholesterol 195 WNL, LDL 101 WNL, HDL 44 WNL TSH: 1.85 WNL Free T4: 1.16 WNL Serial troponin: negative CT head w/o: Negative for acute hemorrhage, possible cerebellar hypodensity CTA head/neck w/: Occlusion of right MCA M2 segment. No significant neck arterial stenosis MRI/MRA w/ and w/o: No acute hemorrhage, ischemic infarct. Chronic white matter changes TTE: pending EKG: NSR HR 70, QTc 447 Meds given: ASA 325 mg x1 ABCD2 score (risk of stroke after suspected TIA): 6 (high risk) ASCVD: 8.8% (using sBP 141) - 19.3% (using inital BP 214) --> rec high intensity statin Patient reported chest pain myopathy with statins Plan: - Pending TTE - Start Asprin 81 mg - Patient requires a high intensity statin. However, patient endorses hx of statin-induced myopathy # Hypertension # Hypertensive emergency Home med: Lisinopril 5 mg daily Plan: - Management per primary # Type 2 diabetes mellitus # Acute Hyperglycemia Home med: Humalog Patient had no insurance for several months, unable to take insulin at that time. Recently restarted on mediactions in July 2024 Initial glucose: 421 UA: 1+ protein, 4+ glucose Plan: - Management per primary # Left eye blurry vision Eye hemorrhaging during a recent dental teeth cleaning session No focal neuro deficit Plan: - CTM # Hepatomegaly AST, ALT WNL Alk phos: 202 Amylase, lipase WNL CT c/a/p hepatomegaly, irregular liver contour. Plan: - Management per primary #Community Acquired Pneumonia 10/21 CT chest demonstrated findings consistent with possible mild pneumonia in the right upper lobe Plan: - Management per primary - Ceftriaxone 1 mg IV QD Plan discussed with Dr. Jorge Arciniega, PGY1
[2024-10-22] MEDS: INSULIN LISPRO (AdmeLOG) 1 UNIT/0.01 ML UNIT SC ×2 (07:47→11:59)
[2024-10-22 08:00] VITALS: BP 141/73; PULSE 66; PULSE 75; RESP 20; TEMP 36.2; O2SAT 97
--- NOTE | 2024-10-22 08:00 | PD.RESPRO ---
Documentation for date of: 10/22/24 Subjective Subjective Interval history: Patient was evaluated at bedside today. Patient endorsed that she is doing better compared to yesterday. Patient endorsed improvement in her headache. Patient endorsed left sided facial numbness, which can possibly be attributed to recent dental work and history of Richey's Palsy. On physical examination, left sided extremity weakness and paresthesia was no longer present. In addition, abdomen was not tender to palpation. Pending MRI and echo, per stroke rule out. Exam Vital Signs Temp Pulse Resp BP Pulse Ox O2 Del Method 97.4 F 65 14 133/71 H 94 L Room Air 10/22/24 04:00 10/22/24 04:00 10/22/24 04:00 10/22/24 04:00 10/22/24 04:00 10/22/24 04:00 Narrative Exam General Appearance: Alert & Oriented X3, well-nourished female who is lying in bed in no acute distress. HEENT: Skull symmetrical and atraumatic. Conjunctivae pink and moist. Pupils equal, round, reactive to light and accommodation (PERRL). External ear without lesion or discharge. Straight, nares patient, mucosa pink, no discharge. No thyroid nodule appreciated. No cervical lymphadenopathy. Cardio: Normal Rate and Rhythm with S1 and S2 heart sounds. No murmurs or extra heart sounds auscultated. No bruits on carotid auscultation. No peripheral edema or cyanosis. Lungs: Symmetric with good expansion. Chest and back non-tender. Breath sounds vesicular without crackles, wheezing or rhonchi Abdomen: Non-tender, Non-distended, Normal Reactive Bowel Sounds Neuro: Alert, cooperative, oriented to person, place, and time. Speech clear. CN grossly intact. Upper motor strength 5/5 and Lower motor strength 5/5. Sensation in extremities intact. Endorsed some left sided facial numbness. Objective Labs 10/22/24 05:17 10/22/24 05:17 Labs: Laboratory Results - last 24 hr 10/22/24 10/22/24 04:00 05:17 WBC 6.2 RBC 4.54 Hgb 13.4 Hct 37.3 MCV 82 MCH 29.5 MCHC 35.9 RDW Std Deviation 38.6 Plt Count 283 D Neut % (Auto) 50 Lymph % (Auto) 40 [place] % (Auto) 7 Eos % (Auto) 3 Baso % (Auto) 1 Neut # (Auto) 3.1 Lymph # (Auto) 2.5 [place] # (Auto) 0.4 Eos # (Auto) 0.2 Baso # (Auto) 0.1 Immature Gran # (Auto) 0.01 H Absolute Nucleated RBC 0.00 Immature Gran % 0 Nucleated RBC % 0 Sodium 137 Potassium 4.2 Chloride 105 Carbon Dioxide 25.6 Anion Gap 6 L BUN 10 Creatinine 0.8 Estim Creat Clear Calc 76.7 eGFR > 60 BUN/Creatinine Ratio 13 Glucose 306 H D Calculated Osmolality 284 Calcium 9.3 Corrected Calcium 9.5 Total Bilirubin 0.6 AST 22 ALT 20 Alkaline Phosphatase 104 D Total Protein 6.4 Albumin 3.7 D Globulin 2.7 Albumin/Globulin Ratio 1.4 Triglycerides 250 H Cholesterol 195 LDL Cholesterol, Calc 101 HDL Cholesterol 44 Cholesterol/HDL Ratio 4.4 Urine Opiates Screen Negative Urine Fentanyl Screen Negative Ur Barbiturates Screen Negative U Amphetamin/Meth Scrn Negative U Benzodiazepines Scrn Negative U Cocaine Metab Screen Negative U Marijuana (THC) Screen Negative Quality Measures Quality Measures none Assessment & Plan Assessment Current Active Medications: Generic Name Dose Route Start Last Admin Trade Name Freq PRN Reason Stop Dose Admin Acetaminophen 650 mg 10/21/24 05:19 10/21/24 15:37 Acetaminophen 325 Mg Tablet PO 11/20/24 05:18 650 mg Q6H PRN Administration PAIN SCALE 1-3 (mild Dextrose 25 ml 10/21/24 05:24 Dextrose 50%-Water Inj 50 Ml Syringe IV 11/20/24 05:23 Q15MIN PRN BG 50-70 responsive npo pt Dextrose 50 ml 10/21/24 05:24 Dextrose 50%-Water Inj 50 Ml Syringe IV 11/20/24 05:23 Q15MIN PRN BG <50 OR BG <70 & pt unresponsive Glucagon 1 mg 10/21/24 05:24 Glucagon Inj 1 Mg Vial IM Q15MIN PRN BG <70, and no IV access Hydralazine HCl 10 mg 10/21/24 05:19 Hydralazine Inj 20 Mg/Ml Vial IVP 11/20/24 05:18 Q6H PRN BP >200/105 w/ HR <75 Ceftriaxone Sodium/Dextrose 1 gm in 50 mls @ 100 mls/hr 10/21/24 05:24 10/21/24 09:30 Rocephin/D5w 1gm Iv Premix IV 10/28/24 05:23 100 mls/hr QDAY [facility] Administration Insulin Glargine 15 unit 10/22/24 09:00 Insulin Glargine (Lantus) 5 Unit/0.05 Ml (Per 5 Units) SC 11/21/24 08:59 QDAY [facility] Insulin Human Lispro 0 unit 10/21/24 11:11 10/22/24 07:47 Insulin Lispro (Admelog) 1 Unit/0.01 Ml Unit SC 11/20/24 07:29 5 unit ACHS [facility] Administration Protocol Labetalol HCl 10 mg 10/21/24 05:19 Labetalol Inj 5 Mg/Ml Vial 20 Ml IVP 11/20/24 05:18 Q6H PRN BP > 200/105 with HR >75 Lisinopril 10 mg 10/22/24 09:00 Lisinopril 2.5 Mg Tablet PO 11/21/24 09:00 QDAY [facility] Ondansetron HCl 4 mg 10/21/24 05:19 Ondansetron Inj 2 Mg/Ml Inj 2 Ml IVP 11/20/24 05:18 Q6H PRN NAUSEA OR VOMITING Protocol Pantoprazole Sodium 40 mg 10/21/24 09:00 10/21/24 09:30 Pantoprazole Inj 40 Mg Vial IVP 11/20/24 08:59 40 mg QDAY [facility] Administration Sennosides 1 tab 10/21/24 05:19 Senna Tablet PO 11/20/24 05:18 QDAY PRN constipation Protocol Plan Plan Génesis Belcher is a 59-year-old F with a PMH of HTN on lisinopril, T2DM on Humalog, Richey's palsy, and bleeding intramural uterine fibroids s/p hysterectomy 9 years ago who presents today with stroke-like symptoms. Patient was admitted for the work-up and management of stroke-like symptoms, hypertensive emergency, and pneumonia. #Left sided Weakness, resolved #Left sided Paresthesia, resolved #Stroke Rule Out Patient's last known well time was around 10/21. Patient presented with symptoms headache and neck pain; she endorsed a previous similar episode. Per patient's daughter, she was confused and not answering questions as her usual self. NIH stroke scale: 2, per teleneurology Dr. Chavez, appreciate recommendations. Aspirin 325 mg x1 given, per teleneurology Dr. Dozier 10/21 CT Head: Did not definitively demonstrate any acute ischemic/hemorrhagic change, concern for possible hypodense attenuation left cerebellum 10/21 CTA Head: Possible stenosis distal M2 segment of right MCA Plan: -Ordered head and neck MRI w/ and w/out contrast, pending results -Echo, pending results -Allowing for permissive hypertension with IV hydralazine 10 mg q6HR prn and IV labetalol 10 mg q6HR prn if hypertension parameters exceeded -Ordered head of bed elevation -Ordered neuro check q4HR -Patient has been placed on NPO #Uncontrolled Type 2 Diabetes Mellitus #Abdominal Pain, resolved #Possible Gastroparesis Patient's glucose measured 421 in the ED. Patient's FSBG measured 340 on 10/21. Patient's average glucose over their previous visits is roughly 338. Patient was only on Humalog at home. Furthermore, patient complains of generalized abdominal pain, which can be related to gastroparesis caused by uncontrolled diabetes over many years. 10/21 Hemoglobin A1C: 13.4 10/22 glucose 306 FSBG 267 Plan: -Insulin Sliding Scale -Discontinued Lantis 15 units; started Lantis 20 units SC QD -Monitor w/FSBG and A1C #Hyperlipidemia 10/22 Lipid Panel: TG 250 TC 195 LDL 131 HDL 44 10/22 ASCVD: 7.9% Plan: -Start Atorvastatin 20 mg PO QHS #Community Acquired Pneumonia 10/21 CT chest demonstrated findings consistent with possible mild pneumonia in the right upper lobe Plan: -Continue Ceftriaxone 1 mg IV QD #Hypertension #Hypertensive emergency Patient has a long history of hypertension. Patient stated that she is on Lisinopril 5 mg PO QD for treatment Patient presented to the ED overnight 10/21 with BP of 214/116. Patient's blood pressure stabilized with administration of Hydralazine 10 mg IVPx1 and Metoprolol tartrate 25 mg POx1 Plan: -Restart home medications as necessary -Allowing for permissive hypertension with IV hydralazine 10 mg q6HR prn and IV labetalol 10 mg q6HR prn if hypertension parameters exceeded #Possible Cirrhosis #Fatty Liver 10/21 CT Abdomen demonstrated hepatomegaly (liver measuring 24 cm) and changes consistent with possible cirrhosis Pertnent labs 10/21 Alk Phos 202 10/22 104 Plan: -Monitor and trend liver enzymes, order hepatitis panel if trending up -Possible liver elastography Hospital Management: Disposition: undergoing work-up and management of stroke r/o, hypertensive emergency, and pneumonia Diet: carbohydrate consistent low GI Prophylaxis: Protonix 40 mg IVP QD Bowel Prophylaxis: senna DVT Prophylaxis: SCDs CODE STATUS: Full Code Case reviewed with attending Dr. Catalan and senior resident Dr. Thacker. Rubi Segovia MS-4 - Tina Thacker MD Internal Medicine PGY-2 Attending Provider Attestation/Addendum I have discussed and was present for the essential components of the history, physical examination, diagnosis, and treatment plan with the resident. I agree with the patient's care as documented by the resident and amended herein by me. Jacquelin Catalan MD. Although this document has been carefully reviewed, there may still be some phonetic and other typographical errors. These errors are purely grammatical due to imperfections in the software program and should not be construed in any way to compromise the substance of the patient's medical care during this visit.
[2024-10-22] MEDS: INSULIN GLARGINE (Lantus) 5 UNIT/0.05 ML (PER 5 UNITS) 20 UNIT SC (08:53)
[2024-10-22 08:54] VITALS: BP 141/73; PULSE 66
[2024-10-22] MEDS: ASPIRIN EC 81 MG TABEC PO (08:54)
[2024-10-22] MEDS: cefTRIAXone/D5w 1gm IV premix 1 GM/50 ML BAG IV (08:55)
--- NOTE | 2024-10-22 09:01 | PC.NURSE ---
PATIENT TRANSFER TO MRI VIA WHEELCHAIR ACCOMPANIED BY KYLE HODGES. PT ALERT AND ORIENTED X4.
--- NOTE | 2024-10-22 09:55 | PC.NURSE ---
PATIENT BACK FROM MRI SHE IS ALERT AND ORIENTED X4 FAMILY AT BEDSIDE
--- NOTE | 2024-10-22 10:03 | PC.SS ---
Follow up note: Pending MRI and ECHO.
--- NOTE | 2024-10-22 11:48 | PC.NURSE ---
HOSPITALIST MADE AWARE OF PT'S C/O GENERALIZE SHAKING AND HEADACHE.
--- NOTE | 2024-10-22 11:57 | ESDS_ITS ---
<Statement entered by Jacquelin Catalan MD - 11/02/24 07:44> I reviewed above note and agree with findings and plans. I have also personally examined the patient with medicine team and went over assessment and plan with medical team including undergraduate intern and resident physician. Planned Discharge Date 10/22/24 DS: Providers Provider Date of admission: 10/21/24 05:36 Primary care physician: Physician No Primary/Family Admitting Provider: Rudy Vee MD Attending Provider on Admission: Jacquelin Catalan MD Consults: 10/21/24 03:51 Consult to Neurology / Tele-Neurology Routine Comment: Consulting Provider: [facility] 10/21/24 05:26 Referral Physical Therapy Routine Comment: Physician Instructions: 10/21/24 07:08 Consult to Neurology / Tele-Neurology Routine Comment: Stroke r/o Consulting Provider: German Patel 10/21/24 13:41 Referral Registered Dietitian Routine Comment: [facility] Referral - Nutrition Routine Comment: Positive screening for nutrition needs. [facility] Referral - Transportation Routine Comment: Positive screening for transportation needs. Attending Provider on DC: Nalini Yuan Discharging Provider: Nalini Yuan DS: Diagnosis Problem List Completed Was Problem List Reviewed/Reconciled?: Yes Hospital Course Hospital Course Hospital course: Summary: Patient is a 59 year female with past medical history significant for hypertension and diabetes mellitus type 2, insulin dependent, who was admitted on 10/21/2024 with chief complain of left upper and lower extremity paresthesia and stroke rule out. Patient was subequently diagnosed with TIA and discharged on Aspirin and Plavix for the next 21 days. ED C ourse: Patient originally presented with complaints of headache, posterior neck pain, and left-sided weakness and paresthesia. Patient stated that her last known well time was 10/21 0130. Patient endorsed a similar episode a few months prior. Per patient's daughter, patient was confused and not answering questions as her usual self at home just prior to the incident. Patient endorsed cough attacks, chest tightness, and generalized abdominal. Patient stated presence of hemorrhage in her eye as well. NIH stroke scale conducted by teleneurology, Dr. Shin, resulted in a score of 2. CT head revealed no acute intracranial ischemic or hemorrhagic changes. CTA head demonstrated critical stenosis of the right MCA M2 segment. CT chest revealed findings consistent with mild pneumonia. CT abdomen demonstrated findings consistent with hepatomegaly, measuring 24 cm. Gallbladder US demonstrated normal findings. Pertinent labs include: glucose 421 Mg 1.5. Treatments provided include: zofran 4mg IV for nausea, metoprolol 25mg POx1 and hydralazine 25 mg IVx1 for blood pressure control, regular insulin 10 units IV for blood glucose, and MgSO4 2mg IVx1 for lower Mg value. Hospital Course: Patient was admitted for the work-up, management, and treatment left-sided weakness and paresthesia secondary to transient ischemic attack and subsequent management of uncontrolled type 2 diabetes mellitus insulin dependent and concern for pulmonary nodules, concern for pneumonia. Patient's symptoms of headache, left-sided weakness and paresthesia, and abdominal pain resolved over the course of hospitalization. MRI brain revealed no acute ischemic or h emorrhagic changes. EKG demonstrated sinus rhythm with old septal infarct noted on previous EKG 01/2024. Pertinent labs include: hemoglobin A1C 13.4 glucose 306 FSGB 268 TG 250 TC 195 LDL 131 HDL 44 Alk Phos 104. Treatments included: starting aspirin [address] Patel for transient ischemic attack, starting insulin sliding scale and Lantis 15 unit uptitrated to 20 unit SC QD for type 2 diabetes mellitus control, MgSO4 2 mg IVx1 for lower Mg values, pantoprazole 40 mg IVP QD for GI prophylaxis, restarting lisinopril 5 mg PO QD for blood pressure control, and ceftriaxone 1 mg IV QD for pneumonia. Patient will continue aspirin 81 mg and Plavix for the next 21 days. Atorvastatin 40 mg once daily indefinitely, given the patient's transient ischemic attack and ASCVD risk score of 7.9%. Patient will continue with Lantis 20 unit SC QD and Lispro with meals, and start Jardiance 10 mg PO QD for type 2 diabetes mellitus control. Patient will continue necessary home medication as prescribed. Patient to follow-up with primary care provider within a week. Patient to follow-up with neurologist Dr. Patel within 2 weeks and establish with a [employer] dealer for outpatient echocardiogram. Patient is stable and progressing back to baseline. Instructions: -Please take all medication as prescribed -Aspirin and Plavix, for the next 21 da ys Transient Ischemic Attack, then may continue only aspirin afterwards, please confirm with your Primary Physician after discharge. -Atorvastatin for high cholesterol given Transient Ischemic Attack -Glargine 20 units at night -Continue Lispro with meals -Jardiance 10 mg once daily given elevated A1c >13 -Please see neurologist Dr Clark in 2 weeks and establish care with [employer] dealer and get an Echocardiogram , you might need referral from your Primary doctor. -Goal of morning glucose between 80-130. Glucose after meals under 200. -Please follow up with outpatient Echocardiogram. -Please follow up with your primary care provider within one week of discharge -If your symptoms worsen,please seek immediate medical attention and return to your nearest emergency room -If you do not have a primary care provider, you may follow up at the [facility] at [address] [place] [address] [address], [place] [address], #Transient Ischemic Attack #Left sided Weakness #Left sided Paresthesia #Insulin Dependent Type II Diabetes Mellitus, A1C 10/21/24 13.4% #Hyperglycemia #Abdominal Pain #Possible Gastroparesis #Hypertension #Hypertensive Emergency, resolved #Hyperlipidemia #Pulmonary Nodular Densities #CAP, less likely #Incidental finding on CT, Hepatomegaly Case reviewed with attending Dr. Catalan and senior resident Dr. Thacker. Rubi Segovia MS-4 - The patient's plan was discussed with attending Dr. Alayna Thacker MD PGY2 Internal Medicine Time Spent with Patient Time attestation: Total time spent providing and/or coordinating discharge services: Time spent: Greater than 30 minutes Quality: Stroke Pt Provided Written Stroke Discharge Instructions: Yes Exam Vital Signs Temp Pulse Resp BP Pulse Ox O2 Del Method 97.2 F 66 20 141/73 H 97 Room Air 10/22/24 08:00 10/22/24 08:54 10/22/24 08:00 10/22/24 08:54 10/22/24 08:00 10/22/24 08:00 Narrative Exam General Appearance: Alert & Oriented to person, place, time, and condition; well-nourished female who is lying in bed in no acute distress. HEENT: Skull symmetrical and atraumatic. Conjunctivae pink and moist. Pupils equal, round, reactive to light and accommodation (PERRL). External ear without lesion or discharge. Straight, nares patient, mucosa pink, no discharge. No t hyroid nodule appreciated. No cervical lymphadenopathy. Cardio: Normal Rate and Rhythm with S1 and S2 heart sounds. No murmurs or extra heart sounds auscultated. No bruits on carotid auscultation. No peripheral edema or cyanosis. Lungs: Symmetric with good expansion. Chest and back non-tender. Breath sounds vesicular without crackles, wheezing or rhonchi Abdomen: Non-tender, Non-distended, Normal Reactive Bowel Sounds Neuro: Alert, cooperative, oriented to person, place, and time. Speech clear. CN grossly intact. Upper motor strength 5/5 and Lower motor strength 5/5. Sensation intact. Discharge Plan Plan Patient Disposition: HOME (Self Care) Patient condition on transfer: Stable Care Plan Goals: Instructions: -Please take all medication as prescribed -Aspirin and Plavix, for the next 21 days Transient Ischemic Attack, then may continue only aspirin afterwards, please confirm with your Primary Physician after discharge. -Rosuvastatin for high cholesterol given Transient Ischemic Attack -Glargine 20 units at night -Continue Lispro with meals -Jardiance 10 mg once daily given elevated A1c >13 -PLease see neurologist Dr Clark in 2 weeks and establish care with [employer] dealer and get an Echocardiogram , you might need referral from your Primary doctor. -Goal of morning glucose between 80-130. Glucose after meals under 200. -Please follow up with your primary care provider within one week of discharge -If your symptoms worsen,please seek immediate medical attention and return to your nearest emergency room -If you do not have a primary care provider, you may follow up at the [facility] at [facility] [address], [place] [address], Phone Prescriptions/Referrals Prescriptions/Med Rec: New aspirin 81 mg Tablet,Delayed Release (Dr/Ec) 81 mg PO QDAY 30 Days Qty: 30 0RF clopidogrel [Plavix] 75 mg tablet 75 mg PO QDAY 21 Days Qty: 21 0RF insulin glargine 100 unit/mL (3 mL) insulin pen 20 unit subcut QPM 30 Days Qty: 6 0RF Jardiance 10 mg tablet 10 mg PO QDAY 30 Days Qty: 30 0RF rosuvastatin 20 mg tablet 20 mg PO QDAY Qty: 30 0RF Continued insulin lispro [Humalog KwikPen Insulin] 100 unit/mL insulin pen 15 unit SUBCUT AC Patient Comments: inject 15 to 20 units subcutaneously WITH EACH MEAL three times a day amlodipine 5 mg tablet 5 mg PO QDAY Qty: 30 0RF lisinopril 5 mg tablet 5 mg PO DAILY Patient Comments: take 1 tablet by mouth once daily Referrals: No Primary/Family,Physician [Primary Care Provider] - German Patel MD [Physician] - Patient/Caregiver Discharge Instructions Discharge Activity: as per physical therapy Education Materials: Can You Control Diabetes ..., ED TIA: Transient Ischemic Attack Print Language: Hungarian Stand Alone Forms: Belinda Award Info., Patient Portal Info Letter Discharge Order Discharge Orders: Discharge (Routine); Ordered 10/22/24 Ordered By: Tina Thacker Quality Discharge Quality Measures VTE prophylaxis MD Attestestation MD Attestation I have discussed and was present for the essential components of the history, physical examination, diagnosis, and treatment plan with the resident. I agree with the patient's care as documented by the resident and amended herein by me. Jacquelin Catalan MD. Although this document has been carefully reviewed, there may still be some phonetic and other typographical errors. These errors are purely grammatical due to imperfections in the software program and should not be construed in any way to compromise the substance of the patient's medical care during this visit.
[2024-10-22 12:00] VITALS: PULSE 78
[2024-10-22] MEDS: ACETAMINOPHEN 325 MG TABLET 650 MG PO (12:00)
--- NOTE | 2024-10-22 13:00 | PC.NURSE ---
DR. VILLALBA MADE AWARE PT DC TODAY, ORDERS RECEIVED, READ BACK, AND CARRIED OUT.
--- NOTE | 2024-10-22 13:29 | PC.NURSE ---
GELATIN DYNAMITE PACKING OPERATOR BROUGHT OUT OF THE ROOM LEFT WITH PIER MASTER UP FRONT.
[2024-10-22 13:30] VITALS: BP 108/80; PULSE 87; RESP 17; O2SAT 96
--- NOTE | 2024-10-22 13:30 | PC.NURSE ---
COORDINATED CARE WITH DR. DAVENPORT PT SET UP APPOINTMENT WITH [facility] FOR 10/26/2024.
--- NOTE | 2024-10-22 13:34 | PC.PT ---
PT eval only. Patient is safe to ambulate in the halls and to the bathroom with no AD and no staff. RN made aware.
== END 2024-10-22 13:45 | disposition home or self-care (01) ==
LOC: SERX 04:42 → SERHOLD 06:12 → S2NX 10-22 05:44 → SERHOLD 10-22 11:58 → S2NX 10-22 11:58
PROVIDERS: Admitting Provider Student in an Organized Health Care Education/Training Program; Emergency Provider Emergency Medicine; Visit Provider Internal Medicine
DX: G45.9 Transient cerebral ischemic attack, unspecified (principal); M54.2 Cervicalgia; I10 Essential (primary) hypertension; I16.1 Hypertensive emergency; J18.9 Pneumonia, unspecified organism; R00.2 Palpitations; N95.1 Menopausal and female climacteric states; K59.00 Constipation, unspecified; J18.1 Lobar pneumonia, unspecified organism; I66.01 Occlusion and stenosis of right middle cerebral artery; I25.2 Old myocardial infarction; E83.42 Hypomagnesemia; E11.65 Type 2 diabetes mellitus with hyperglycemia; Z01.810 Encounter for preprocedural cardiovascular examination; R16.0 Hepatomegaly, not elsewhere classified; R91.1 Solitary pulmonary nodule
CPT/HCPCS: 36415; 70450; 70496; 70498; 70553; 71250; 74176; 76705; 80053; 80061; 80307; 81001; 82150; 82248; 83036; 83690; 83735; 83880; 84439; 84443; 84484; 85025; 85610; 85730; 87400; 87811; 93005; 96365; 96366; 96375; 96376; 97161; A4649; G0378; J0360; J0696; J1815; J2405; J2470; J3475; Q9967; A9270

== ENCOUNTER 2024-10-26 13:51 | Outpatient (AMB) | payer MEDICAID, SELFPAY ==
[2024-10-26 14:26] VITALS: BP 104/67; PULSE 83; RESP 19; TEMP 36.8; O2SAT 97; BMI 35.6
--- NOTE | 2024-10-26 14:26 | ACNOTE_ITS ---
Vital Signs 10/26/24 14:26 Height 1.52 m Height Method Stated Weight 82.667 kg Weight Measurement Method Standing Scale BMI 35.6 BP 104/67 Blood Pressure Source Automatic Cuff Blood Pressure Location Right Upper Arm Position Sitting Respiration 19 Pulse 83 Pulse Source Monitor Temp 98.2 F Temp Source Temporal Artery Scan Pulse Oximetry (%) 97 Oxygen Delivery Method Room Air Allergies/Meds Allergies & Medications Allergies ciprofloxacin Allergy (Severe, Verified 10/31/24 17:35) Elizabet PURI Intake Visit Data Collection New Patient or Established: Established Patient (seen at [facility] within 3 years) Seen by Clinical Staff ONLY (RN/MA): No Reason for Visit:: HOSPITAL FOLLOW UP Pain Present Currently: No Vehicle Monitor Technician Required: No PCP or OBGYN visit in last 3 months: Yes Do You Feel Safe at Home: Yes Authorities Contacted: N/A Smoking Status Smoking Status: Never smoker Immunization / Flu Flu Vaccine in the Last 12 Months: Yes Flu Vaccine Exclusion Criteria: Already Received Past Medical History Past Medical History NEUROLOGIC: Positive Head Trauma (Pt reports hitting head many times over the years); Negative Neurological Disorders CARDIAC: Positive Cardiac Disorders and Hypertension; Negative Congestive Heart Failure RESPIRATORY: Positive Asthma (as a child); Negative Chronic Obstructive Pulmonary Disease (COPD) GASTROINTESTINAL: Negative Gastrointestinal Disorders GENITOURINARY: Negative Genitourinary Disorders or Renal Disease REPRODUCTIVE: Positive Previous Pregnancies MUSCULOSKELETAL: Positive Arthritis and Osteoporosis ENT: Positive Ear Infection and Head Trauma (Pt reports hitting head many times over the years) ENDOCRINE: Positive Endocrine Disorders and Diabetes Mellitus Type 2; Negative Diabetes Mellitus Type 1 HEMATOLOGIC: Positive Blood Disorders and Anemia (when 30 years ago) OTHER HISTORY: Positive Hospitalization, Anesthesia Reactions and Chicken Pox; Negative Autoimmune Disease, Down Syndrome, Developmental Delay, Shingles, Falls, Blood Transfusions, Organ Transplant or Cancer Surgical History SURGICAL: Positive Hysterectomy (2016); Negative Organ Transplant Social History SMOKING STATUS: Smoking status: Never smoker ALCOHOL: Alcohol Intake: Former HOUSING: Housing: House LIVES WITH: Lives With: Children Patient Portal Questionairlela Social History Living Situation History Housing: House Tobacco History Smoking Status: Never smoker Alcohol History Alcohol Intake: Former Domestic Abuse History Do You Feel Safe at Home: Yes Review of Systems Report any current symptoms Only answer those that you have currently: Past Medical History Past Medical History Have you ever been diagnosed with any of the following: Neurological Problems Head Trauma: Yes (Pt reports hitting head many times over the years) Cardiology Problems Congestive Heart Failure: No Hypertension: Yes Respiratory Problems Chronic Obstructive Pulmonary Disease (COPD): No Asthma: Yes (as a child) Genital/Urinary Problems Renal Disease: No Reproductive Problems Previous Pregnancies: Yes Musculoskeletal Problems Arthritis: Yes Osteoporosis: Yes Head,Eye,Nose,Throat Problems Chronic Ear Infections: Yes Endocrine Problems Diabetes Mellitus Type 1: No Diabetes Mellitus Type 2: Yes Blood Problems Anemia: Yes (when 30 years ago) Other Problems Hospitalization: Yes Autoimmune Disease: No Down Syndrome: No Developmental Delay: No Shingles: No Falls: No Blood Transfusions: No Anesthesia Reactions: Yes Organ Transplant: No Chicken Pox: Yes Cancer: No Surgical History Hysterectomy: Yes (2016) History of Present Illness HPI Narrative Patient is a 59-year-old female with a past medical history of hypertension, type II DM, who was recently discharged from hospital following a diagnosis of TIA. He was sent home on aspirin, Plavix and statin for TIA as well as insulin glargine and Jardiance for diabetes mellitus, continued amlodipine and lisinopril for hypertension. The patient reported her symptoms of resolved, she still cannot see clearly from her left eye continues to have headaches. The patient is here to establish care and get referrals to neurology, cardiology and ophthalmology. The patient was pending an outpatient echocardiogram which was ordered. The patient had not picked up her medications yet she only has access to Plavix, but reported she will drive to the pharmacy today and get her rest of the medications. Strict compliance with medications was emphasized. The patient demonstrated understanding. Review of Systems Review of Systems Systems Reviewed: All systems reviewed, normal except as documented Objective/Exam Narrative Physical exam: General: AOx3, cooperative Skin: Intact, no cyanosis or edema noted. HEENT: Atraumatic/normocephalic, DULCE, neck supple Heart: RRR, S1 and S2 without clicks or murmurs Lungs: Clear on auscultation bilaterally, no difficulty breathing Abdomen: Soft, nontender. Bowel sounds present . Vascular: Peripheral pulses palpable Neuro: No focal neurological deficits noted. Assessment & Plan Diagnosis / Problem List (1) Stroke-like symptoms: Status: Acute Assessment & Plan: Diagnosed with TIA during previous hospitalization. Plan: ? Aspirin 81 mg daily ? Plavix 75 mg daily ? Rosuvastatin 20 mg daily ? Echocardiogram ordered ? Neurology referral to Dr. Patel is made, recommend follow-up within 2 weeks ? Cardiology referral was made (2) Type 2 diabetes mellitus: Status: Acute Assessment & Plan: Poorly controlled, non compliance with meds, was previously on basal bolu sregimanish, pt is a type 2 DM , a1c 13%, will simplify pt's insulin regimen for better compliance with meds. Plan: - insulin Lantus 20 units qday - repeat a1c in 3 months (3) Hypertension: Status: Acute Assessment & Plan: Advise strict compliance to home meds to reduce risk of future stroke like events Plan: - lisinoprol 5mg qday Plan Plan of care discussed with attending DR Jennifer MD Orders: Orders [place] echo doppler complete 10/26/24 R29.90 - Unspecified symptoms and signs i nvolving the nervous system Referrals Neurology R29.90 - Unspecified symptoms and signs involving the nervous system Cardiology R29.90 - Unspecified symptoms and signs involving the nervous system Ophthalmology R29.90 - Unspecified symptoms and signs involving the nervous system Office Procedures [facility] Level of Care Nursing/Assessment Patient Status: Established Patient Nursing Assessment/Reassessment: Medication Reconciliation, Update PMH in EMR and Vital Signs Coordination of Care: Complex Care and Chronic Disease 1-5, Consent,records obtained, informed consent, Lab and Imaging orders and Results/Orders obtained Established Patient Charge Established Patient Point Assignment: 80
== END 2024-10-26 15:19 | disposition home or self-care (01) ==
LOC: HODAHC 13:51
PROVIDERS: Supervising Provider Internal Medicine; Visit Provider Student in an Organized Health Care Education/Training Program
DX: R51.9 Headache, unspecified (principal); H53.8 Other visual disturbances; I10 Essential (primary) hypertension; E11.65 Type 2 diabetes mellitus with hyperglycemia; Z79.4 Long term (current) use of insulin; Z86.73 Personal history of transient ischemic attack (TIA), and cerebral infarction without residual deficits
CPT/HCPCS: 99213; G0463

== ENCOUNTER 2024-10-31 17:21 | Emergency (ER) | payer MEDICAID, SELFPAY ==
[2024-10-31 17:31] VITALS: BP 189/88; PULSE 84; RESP 18; TEMP 37.1; O2SAT 98; BMI 34.0
--- NOTE | 2024-10-31 17:31 | EDNOTE_ITS ---
Neuro Symptoms Deficit-RME/HPI General Chief Complaint: Eye Problems Stated Complaint: BLURRY VISION WITH CHILLS AND HIGH BP @1500 Time Seen by Provider: 10/31/24 17:38 Arrival date/time: 10/31/24 17:21 Limitations: no limitations RME / HPI RME / HPI Narrative: DR. CRUM MAIN ED EVALUATION: 59-year-old male with past medical history of TIA (10/21/2024) and pneumonia (10/21/2024, hospitalized) presents to the Emergency Department with complaint of sudden onset of shakiness, lightheadedness, chills, bilateral facial numbness and tingling, and bilateral arm numbness and tingling while sitting and watching TV. Patient also reports blurry vision and jittery sensation, which occurred prior to arrival. 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 Medications include aspirin, Plavix, and lisinopril. Denies tobacco, alcohol, or drug use. Related Data Home Medications ?Medication ?Instructions ?Recorded ?Confirmed insulin lispro 100 unit/mL 15 unit subcut AC 02/26/20 10/22/24 subcutaneous pen (Humalog KwikPen (U-100) Insulin) lisinopril 5 mg tablet 5 mg PO DAILY 10/22/2410/22 Previous Rx's ?Medication ?Instructions ?Recorded rosuvastatin 20 mg tablet 20 mg PO QDAY #30 tabs 10/22 Allergies Allergy/AdvReac Type Severity Reaction Status Date / Time ciprofloxacin Allergy Severe Hives Verified 10/31/24 17:35 Review of Systems Review of Systems Systems Reviewed: All systems reviewed, normal except as documented Past Medical History Past Medical History NEUROLOGIC: Positive Head Trauma (Pt reports hitting head many times over the years) CARDIAC: Positive Cardiac Disorders and Hypertension RESPIRATORY: Positive Asthma (as a child) REPRODUCTIVE: Positive Previous Pregnancies MUSCULOSKELETAL: Positive Musculoskeletal Disorders, Arthritis and Osteoporosis ENT: Positive Ear Infection and Head Trauma (Pt reports hitting head many times over the years) ENDOCRINE: Positive Endocrine Disorders and Diabetes Mellitus Type 2 HEMATOLOGIC: Positive Blood Disorders and Anemia (when 30 years ago) OTHER HISTORY: Positive Hospitalization, Anesthesia Reactions and Chicken Pox Surgical History SURGICAL: Positive Hysterectomy (2016), Tubal Ligation and Section Social History SMOKING STATUS: Never smoker SUBSTANCE USE: does not use ALCOHOL: Never ED Exam General Limitations: Present no limitations General appearance: Present alert and in no apparent distress Head Head exam: Present atraumatic, normocephalic and normal inspection Eye Eye exam: Present normal appearance, PERRL and EOMI ENT ENT exam: Present normal exam, normal oropharynx and mucous membranes moist Neck Neck exam: Present normal inspection, full ROM and trachea midline Chest Chest inspection: Present normal inspection and symmetric chest wall rise Respiratory Respiratory exam: Present normal lung sounds bilaterally Cardiovascular Cardiovascular exam: Present regular rate, normal rhythm and normal heart sounds Abdominal Exam Abdominal exam: Present soft and normal bowel sounds Extremities Exam Extremities exam: Present normal inspection and full ROM Back Exam Back exam: Present normal inspection and full ROM Neurological Exam Neurological exam: Present alert, oriented X3, CN II-XII intact and other (FROM of all 4 extremities with symmetrical strength. 5/5.) Expanded Neurological Exam Patient oriented to: Present person, place and time Motor strength - LUE: 5/5 Motor strength - RUE: 5/5 Motor strength - LLE: 5/5 Motor strength - RLE: 5/5 Psychiatric Psychiatric exam: Present normal affect and normal mood Skin Skin exam: Present warm, dry, intact and normal color Course Quality Measures none Orders Category Date Time Status Bedside COVID-19 Antigen Test NOW Care 10/31/24 17:44 Completed Bedside Influenza A&B Antigen Test NOW Care 10/31/24 17:44 Completed EKG (ED ONLY) *Do not use* NOW Care 10/31/24 17:[address] head/brain wo con Stat Exams 10/31/24 17:43 Completed CXR2 [XR chest 2V] Stat Exams 10/31/24 17:44 Completed EKG (ED Only) Stat Exams 10/31/24 17:44 Draft BNP [B-Type Natriuretic Peptide] Stat Lab 10/31/24 18:13 Completed CBC Stat Lab 10/31/24 18:13 Completed CK [Creatine Kinase] Stat Lab 10/31/24 18:13 Completed CMP [Comprehensive Metabolic Panel] Stat Lab 10/31/24 18:13 Completed Drug Screen,Urine Stat Lab 10/31/24 19:45 Completed Lipase Stat Lab 10/31/24 18:13 Completed Troponin I Stat Lab 10/31/24 18:13 Completed UA, C/S IF [Urinalysis, C/S if Indicated] Stat Lab 10/31/24 19:45 Completed Vital Signs Vital signs: Vital Signs Temperature 98.8 F 10/31/24 17:31 Pulse Rate 84 10/31/24 17:31 Respiratory Rate 18 10/31/24 17:31 Blood Pressure 189/88 H 10/31/24 17:31 Pulse Oximetry (%) 98 10/31/24 17:31 Oxygen Delivery Method Room Air 10/31/24 17:31 Neuro Symptoms / Deficit MDM Narrative MDM Narrative:: I, Judith Ramos, am scribing for and in the presence of Dr. Crum. Patient is a 59-year-old female is in the emergency department with concerns for acute episode of chills, tingling feeling in both of her hands, both side of her face, feeling lightheaded and episode of blurry vision. Episode started while patient was watching TV, symptoms resolved shortly thereafter. Patient has a history of TIA, retinal hemorrhages, diabetes. Patient was recently hospitalized and is pending a follow-up appointment with a package wrapper and neurologist. Patient takes aspirin and Plavix. Concern for ACS arrhythmia electrolyte abnormality viral syndrome urinary tract infection among others. Patient without any focal neurodeficits, no dysdiadochokinesia, no changes in sensation on her face, bilateral upper extremities, bilateral lower extremities. Patient is GCS 15, ANO x 4. Less likely acute cerebrovascular accident. Ordered labs, EKG, CT brain offered medication for symptom relief. Patient signed out to oncoming provider pending the rest of her workup. Patient data External records reviewed:: [facility] previous records Clinical information provided by:: patient and family Social determinants that could affect healthcare access:: none Patient has the following chronic illnesses:: TIA (10/21/2024) and pneumonia (10/21/2024, hospitalized). 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 M edications include aspirin, Plavix, and lisinopril. Denies tobacco, alcohol, or drug use. How is presenting disease/condition affected by chronic disease/condition?: exacerbated by Evaluation data The following diagnostics were reviewed and interpreted by me:: lab results, radiology exam(s) and EKG tracing(s) Lab and/or radiology exams considered but not ordered:: none Interpretation Summary: See narrative above. Medications / Prescriptions Medications or Prescriptions considered but not ordered:: none Medication administrations:: see above if any Consultations Consultation(s) initiated? (list below): No Diagnosis Neuro Differential Diagnosis: cerebrovascular accident, transient cerebral ischemia and other (hypoglycemia, anxiety-related autonomic episode) Most likely diagnosis given after review of the tests above:: No official diagnoses at this time, still pending diagnostic tests. Patient signout to the after school caregiver provider. Admission Indicated Admission indicated?: not indicated Explain why admission is indicated or not indicated:: No final disposition plan at this time, still pending diagnostic tests. Patient signout to the after school caregiver provider. Admission Request Was there a request for admission?: No Disposition Plan Disposition Plan: other (specify) (Patient signed out to Dr. Turk, pending work-up.) Discharge Plan Plan Patient Disposition: HOME (Self Care) Prescriptions/Referrals Prescriptions/Med Rec: No Action insulin lispro [Humalog KwikPen Insulin] 100 unit/mL insulin pen 15 unit SUBCUT AC Patient Comments: inject 15 to 20 units subcutaneously WITH EACH MEAL three times a day lisinopril 5 mg tablet 5 mg PO DAILY Patient Comments: take 1 tablet by mouth once daily rosuvastatin 20 mg tablet 20 mg PO QDAY Qty: 30 0RF Referrals: No Primary/Family,Physician [Primary Care Provider] - In 1 week Problem List Clinical Impression: Paresthesias Patient/Caregiver Discharge Instructions Additional Instructions: Continue all current medications. Follow-up with your doctor. Return to ER as needed or if condition worsens. Print Language: Mongolian Stand Alone Forms: Belinda Award Info., Patient Portal Info Letter
--- NOTE | 2024-10-31 17:31 | PC.NURSE ---
NO STROKE ALERT PER DR. FALK.
[2024-10-31 17:40] VITALS: BP 139/84; PULSE 80; RESP 18; TEMP 36.9; O2SAT 99
--- NOTE | 2024-10-31 17:43 | XR_ITS ---
Examination: CT brain head without contrast. 2-D sagittal coronal reconstructions Date and time of exam:October 31 dominant vessel and 25, 1842 hours Comparison October 21, 2024 INDICATIONS: Headaches intermittent dizziness high blood pressure beginning 5 days ago, high blood pressure headaches October 21, 2024 CTDI: vol (mGy):50.7 DLP: (mGycm):1022 Technique: Multiple CT axial sections of the brain have been obtained, 5 mm slice thickness. Contrast has not been administered. 2-D sagittal, coronal reconstructions have been obtained Low dose protocols were performed. One or more of the following dose reduction techniques were used; automated exposure control, adjustment of the mA and/or KV according to patient size, use of iterative reconstruction technique. Findings: No significant ventricular enlargement. Intra-axial or extra-axial hemorrhage density is not seen. No mass effect or midline shift Basal cisterns are not remarkable. Fourth ventricle is midline. Cranial vault intact. Please see the brain MRI report October 22, 2024 Impression: Negative for acute hemorrhage, mass effect or midline shift
--- NOTE | 2024-10-31 17:44 | EKG_ITS ---
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
--- NOTE | 2024-10-31 17:44 | XR_ITS ---
Examination: PA lateral chest 2 views TECHNIQUE: Upright PA and lateral chest 2 views Date and time: October 31, 2024, 1803 hours Comparison February 29, 2024 INDICATIONS: Chest pain beginning today. FINDINGS: Normal heart size The lungs are clear. The osseous structures are intact IMPRESSION: No active disease
[2024-10-31 18:24] LABS: Basophils # (Auto) 0.1 Thou/mm3 (0.0-0.2); Basophils % (Auto) 1 % (0-2.5); Eosinophils # (Auto) 0.1 Thou/mm3 (0.0-0.5); Eosinophils % (Auto) 1 % (0-10); Hematocrit 42.0 % (36.0-46.0); Hemoglobin 14.5 g/dL (12.0-16.0); Immature Granulocytes Auto 0.02 Thou/mm3 (0.00-0.00); Lymphocytes # (Auto) 1.9 Thou/mm3 (1.0-4.8); Lymphocytes % (Auto) 22 % (10-50); Mean Corpuscular HGB Conc 34.5 g/dl (31.0-37.0); Mean Corpuscular Hemoglobin 29.4 pg (25.0-35.0); Mean Corpuscular Volume 85 fL (80-100); Monocytes # (Auto) 0.5 Thou/mm3 (0.0-0.8); Monocytes % (Auto) 5 % (0-12); Neutrophils # (Auto) 6.1 Thou/mm3 (1.8-7.7); Neutrophils % (Auto) 70 % (37-80); Nucleated Red Blood Cell # 0.00 Thou/mm3 (0.00-0.00); Nucleated Red Blood Cell % 0 /100 WBC (0); Platelet Count 430 Thou/mm3 (140-440); RDW Standard Deviation 38.8 fL (36.4-46.3); Red Blood Count 4.93 Miln/mm3 (4.00-5.20); White Blood Count 8.6 Thou/mm3 (3.6-11.0)
--- NOTE | 2024-10-31 18:37 | PD.EDADDENDU ---
Emergency Room Addendum <Conchita Jacobsen - Last Filed: 10/31/24 19:17> Addendum Narrative: 1800: Care assumed from Dr. Crum (emergency physician). Past medical, surgical, social and family history reviewed. Vitals and home medications reviewed. Results and treatment plan discussed. I will assume the care of the patient at this time and will follow the patient, pending COVID/Influenza, Head/Brain CT, and labs. The following addendum documentation note is intended to reflect any pending information, findings, or radiology results not included in the patient?s initial chart by the previous shift scribe. RADIOLOGY Head CT: Findings: No significant ventricular enlargement. Intra-axial or extra-axial hemorrhage density is not seen. No mass effect or midline shift Basal cisterns are not remarkable. Fourth ventricle is midline. Cranial vault intact. Please see the brain MRI report October 22, 2024 Impression: Negative for acute hemorrhage, mass effect or midline shift <Goldy Turk DO - Last Filed: 10/31/24 21:10> Addendum Narrative: 1800: Care assumed from Dr. Crum (emergency physician). Past medical, surgical, social and family history reviewed. Vitals and home medications reviewed. Results and treatment plan discussed. I will assume the care of the patient at this time and will follow the patient, pending COVID/Influenza, Head/Brain CT, and labs. The following addendum documentation note is intended to reflect any pending information, findings, or radiology results not included in the patient?s initial chart by the previous shift scribe. Case was signed out to me awaiting the majority of the workup. I reviewed the workup including EKG blood work and CAT scan of the brain all were unremarkable. Patient feels markedly improved. She thinks this feeling could have been due to her blood pressure being lower at normal with a systolic blood pressure of 102 at home today. She feels much improved at this time. She wishes to go home. Patient is already on aspirin and Plavix for a TIA recently. She is to continue those medications. Follow-up with her doctor. Return to ER as needed or if condition worsens. RADIOLOGY Head CT: Findings: No significant ventricular enlargement. Intra-axial or extra-axial hemorrhage density is not seen. No mass effect or midline shift Basal cisterns are not remarkable. Fourth ventricle is midline. Cranial vault intact. Please see the brain MRI report October 22, 2024 Impression: Negative for acute hemorrhage, mass effect or midline shift
[2024-10-31 18:40] LABS: B-Type Natriuretic Peptide 28 pg/mL (0-100)
[2024-10-31 18:42] LABS: Alanine Aminotransferase 19 U/L (10-49); Albumin, Serum 4.3 gm/dL (3.5-5.0); Albumin/Globulin Ratio 1.3 (1.2-2.2); Alkaline Phosphatase 106 U/L (46-116); Anion Gap 9 (7-16); Aspartate Amino Transferase 23 U/L (0-34); BUN/Creatinine Ratio 11 Ratio (12-20); Bilirubin,Total 0.6 mg/dL (0.3-1.2); Blood Urea Nitrogen 10 mg/dL (9-23); Calcium 10.0 mg/dL (8.3-10.6); Calcium (Corrected) 10.0 mg/dL (8.5-10.1); Carbon Dioxide 25.6 mMol/L (20.0-31.0); Chloride 105 mMol/L (98-107); Creatine Kinase 81 U/L (34-171); Creatinine (Component) 0.9 mg/dL (0.6-1.3); Estimated Creatinine Clearance 66.8 mL/min (>60); Globulin 3.2 gm/dL (2.3-3.5); Glucose 156 mg/dL (74-106); Lipase 112 U/L (12-53); Osmolality,Calculated 281 (275-295); Potassium 4.2 mMol/L (3.4-5.1); Sodium 140 mMol/L (136-145); Total Protein 7.5 gm/dL (5.7-8.2); Troponin I < 0.020 ng/mL (0.0-0.045); eGFR > 60 See Note
[2024-10-31 19:49] LABS: Collection Type, Urine Clean Catch
[2024-10-31 19:57] LABS: Bacteria,Urine Rare; Bilirubin,Urine Negative (Negative); Blood,Urine Negative (Negative); Clarity,Urine Clear (Clear/Hazy); Color,Urine Colorless (Lt Yel-Yel); Culture Indicated,Urine Not Indicated; Glucose, Urine 4+ (Negative); Ketones,Urine Negative (Negative); Leukocyte Esterase,Urine Negative (Negative); Nitrite,Urine Negative (Negative); PH,Urine 6.5 (5.0-7.0); Protein,Urine 1+ (Neg - Trace); RBC,Urine 1 /hpf (0-3); Specific Gravity,Urine 1.006 (1.001-1.035); Squamous Epithelial Cell,Urine 5 /hpf (0-5); Urobilinogen,Urine Negative mg/dL (0.0-1.0); WBC,Urine 2 /hpf (0-5)
[2024-10-31 20:05] LABS: Amphetamine/Methamp Scrn,U Negative (Negative); Barbiturate Screen,Urine Negative (Negative); Benzodiazepines Screen,Urine Negative (Negative); Benzoylecgonine Screen, Ur Negative (Negative); Fentanyl Screen,Urine Negative (Negative); Opiate Screen,Urine Negative (Negative); THC Screen,Urine Negative (Negative)
[2024-10-31 21:14] VITALS: BP 139/81; PULSE 69; RESP 18; TEMP 36.7; O2SAT 98
[2024-10-31 21:17] VITALS: BP 139/87; BP 164/87; PULSE 72; RESP 17; TEMP 36.8; O2SAT 99
== END 2024-10-31 21:19 | disposition home or self-care (01) ==
PROVIDERS: Emergency Medicine; Emergency Provider Emergency Medicine
DX: R20.2 Paresthesia of skin (principal); H53.8 Other visual disturbances; R42 Dizziness and giddiness; R07.9 Chest pain, unspecified; R51.9 Headache, unspecified; R94.31 Abnormal electrocardiogram [ECG] [EKG]; Z86.73 Personal history of transient ischemic attack (TIA), and cerebral infarction without residual deficits; Z79.82 Long term (current) use of aspirin; Z79.02 Long term (current) use of antithrombotics/antiplatelets
CPT/HCPCS: 36415; 70450; 71046; 80053; 80307; 81001; 82550; 83690; 83880; 84484; 85025; 87400; 87811; 93005; 99283

== ENCOUNTER 2024-11-25 15:09 | Observation (INO) | payer MEDICAID, SELFPAY ==
[2024-11-25 15:11] VITALS: BMI 33.0
[2024-11-25 15:24] VITALS: BP 133/83; PULSE 91; RESP 20; O2SAT 97
--- NOTE | 2024-11-25 15:29 | EKG_ITS ---
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
--- NOTE | 2024-11-25 15:30 | EDNOTE_ITS ---
ED Weakness RME/HPI General Chief complaint: Headache Stated complaint: HEADACHE, LEFT ARM AND LEG NUMBNESS SINCE WOKE Time Seen by Provider: 11/25/24 15:22 Arrival date/time: 11/25/24 15:09 Limitations: no limitations RME / HPI RME / HPI Narrative: DR. DEYA GÓMEZ ED EVALUATION: Patient is a 59-year-old female with medical history notable for diabetes, hypertension, hyperlipidemia, stroke, as an emergency department concerns for acute onset weakness of her left lower extremity and numbness and tingling on the left side of her body. Patient states that yesterday she felt fine, this morning woke up and started feeling chest discomfort as well as the symptoms in the left side of her body. Denies fevers chills nausea vomiting cough runny nose abdominal pain dysuria hematuria melena bloody stool drugs alcohol smoking recent travel sick contacts. Patient states that she was recently hospitalized for a few days for stroke. Still pending follow-up with a neurologist and spanish linguist as an outpatient. Related Data Home Medications ?Medication ?Instructions ?Recorded ?Confirmed insulin lispro 100 unit/mL 15 unit subcut AC 02/26/20 10/22/24 subcutaneous pen (Humalog KwikPen (U-100) Insulin) lisinopril 5 mg tablet 5 mg PO DAILY 10/22/2410/22 Previous Rx's ?Medication ?Instructions ?Recorded rosuvastatin 20 mg tablet 20 mg PO QDAY #30 tabs 10/22 Allergies Allergy/AdvReac Type Severity Reaction Status Date / Time ciprofloxacin Allergy Severe Hives Verified 10/31/24 17:35 Review of Systems Review of Systems Systems Reviewed: All systems reviewed, normal except as documented Past Medical History Past Medical History NEUROLOGIC: Positive Head Trauma (Pt reports hitting head many times over the years) CARDIAC: Positive Cardiac Disorders and Hypertension RESPIRATORY: Positive Asthma (as a child) REPRODUCTIVE: Positive Previous Pregnancies MUSCULOSKELETAL: Positive Musculoskeletal Disorders, Arthritis and Osteoporosis ENT: Positive Ear Infection and Head Trauma (Pt reports hitting head many times over the years) ENDOCRINE: Positive Endocrine Disorders and Diabetes Mellitus Type 2 HEMATOLOGIC: Positive Blood Disorders and Anemia (when 30 years ago) OTHER HISTORY: Positive Hospitalization, Anesthesia Reactions and Chicken Pox Surgical History SURGICAL: Positive Hysterectomy (2016), Tubal Ligation and Section Social History SMOKING STATUS: Never smoker SUBSTANCE USE: does not use ALCOHOL: Never ED Exam General Limitations: Present no limitations General appearance: Present alert Head Head exam: Present atraumatic Eye Eye exam: Present normal appearance ENT ENT exam: Present normal exam Neck Neck exam: Present normal inspection Chest Chest inspection: Present normal inspection Respiratory Respiratory exam: Present normal lung sounds bilaterally Cardiovascular Cardiovascular exam: Present normal rhythm Abdominal Exam Abdominal exam: Present soft; Absent distention or tenderness Neurological Exam Neurological exam: Present alert, oriented X3 and other (Mild decrease sensation in the left side of the face, left upper extremity, left lower extremity, mild weakness to lower leg extension) Psychiatric Psychiatric exam: Present normal affect Skin Skin exam: Present warm and dry Course Quality Measures none Orders Category Date Time Status Bedside Blood Glucose NOW Care 11/25/24 15:29 Active Mechanic Foreman NOW Care 11/25/24 15:29 Active Continuous Pulse Oximetry NOW Care 11/25/24 15:29 Completed EKG (ED ONLY) *Do not use* NOW Care 11/25/24 15:29 Completed In and Out Catheter NEEDED Care 11/25/24 15:29 Active Insert IV NOW Care 11/25/24 15:29 Active NIH Stroke Scale now Care 11/25/24 15:29 Active NPO NOW Care 11/25/24 15:29 Active Neuro Check Q1HR Care 11/25/24 15:29 Active Nurse Swallow Screen x1 Care 11/25/24 15:29 Active Consult to Neurology / Tele-Neurology Stat Cons 11/25/24 15:[address] angio stroke protocol Stat Exams 11/25/24 15:[address] stroke protocol Stat Exams 11/25/24 15:29 Completed EKG (ED Only) Stat Exams 11/25/24 15:29 Draft XR chest 1V portable Stat Exams 11/25/24 15:29 Completed Alcohol, Blood Medical Stat Lab 11/25/24 15:29 Completed CBC Stat Lab 11/25/24 15:29 Completed Comprehensive Metabolic Panel Stat Lab 11/25/24 15:29 Completed Drug Screen,Urine Stat Lab 11/25/24 16:12 Completed Magnesium Stat Lab 11/25/24 15:29 Completed Partial Thromboplastin Time Stat Lab 11/25/24 15:29 Completed Prothrombin Time with INR Stat Lab 11/25/24 15:29 Completed Troponin I Stat Lab 11/25/24 15:29 Completed Urinalysis, C/S if Indicated Stat Lab 11/25/24 16:12 Completed Oxygen Delivery NOW RT 11/25/24 15:29 Active Vital Signs Vital signs: Vital Signs Pulse Rate 91 11/25/24 15:24 Respiratory Rate 20 11/25/24 15:24 Blood Pressure 133/83 H 11/25/24 15:24 Pulse Oximetry (%) 97 11/25/24 15:24 Oxygen Delivery Method Room Air 11/25/24 15:24 Weakness [facility] Narrative [facility] Narrative:: I, Judith Ramos, am scribing for and in the presence of Dr. Crum. Patient is a 59-year-old female seen emerged from with concerns for left-sided numbness as well as weakness in her left lower leg. Vital signs and exam as above. Concern for stroke, patient last known well is yesterday in the evening time. Patient is beyond the tenecteplase window. Patient was activated as a stroke alert, CTs labs ordered. Patient is taking aspirin at home. Patient data External records reviewed:: [facility] previous records Clinical information provided by:: patient Social determinants that could affect healthcare access:: none Patient has the following chronic illnesses:: diabetes mellitus, hypertension, hyperlipidemia, and prior stroke How is presenting disease/condition affected by chronic disease/condition?: exacerbated by Evaluation data The following diagnostics were reviewed and interpreted by me:: lab results, radiology exam(s) and EKG tracing(s) (My interpretation: EKG performed at 1606 hours, sinus rhythm, rate 74, normal intervals, non specific ST-T wave changes, no cardiac alert) Lab and/or radiology exams considered but not ordered:: None Interpretation Summary: See [facility] RADIOLOGY Procedure(s): CT stroke protocol Accession Number(s): [id number] cc: Syed Cleaning MD; Edda Crum MD~ Examination: CT brain head without contrast. 2-D sagittal coronal reconstructions Date and time of exam:November 25, 2024 1533 hours Comparison October 31, 2024 INDICATIONS: Stroke alert, onset left-sided body numbness beginning this morning CTDI: vol (mGy):52.1 DLP: (mGycm):1023 Technique: Multiple CT axial sections of the brain have been obtained, 5 mm slice thickness. Contrast has not been administered. 2-D sagittal, coronal reconstructions have been obtained Low dose protocols were performed. One or more of the following dose reduction techniques were used; automated exposure control, adjustment of the mA and/or KV according to patient size, use of iterative reconstruction technique. Findings: No significant ventricular enlargement. Intra-axial or extra-axial hemorrhage density is not seen. No mass effect or midline shift Basal cisterns are not remarkable. Fourth ventricle is midline. Cranial vault intact. Impression: Negative for acute hemorrhage, mass effect or midline shift Dictated By: Syed Cleaning MD Procedure(s): CT angio stroke protocol Accession Number(s): [id number] cc: Syed Cleaning MD; Edda Crum MD~ Examination: CTA carotids with intravenous contrast CTA brain, head with intravenous contrast. 2-D sagittal, coronal reconstructions. 3-D reconstructions. Exam date and time: November 25, 2024, 1556 hours INDICATIONS: Stroke alert, onset focal neurologic deficit today CTDI: vol (mGy) 26 DLP: (mGycm) 456 Technique: Multiple CTA axial brain, head carotid images post intravenous contrast injection 75 cc, Isovue-370. 2-D sagittal, coronal reconstructions. 3-D reconstructions, 3-D post processing including vascular maximum intensity projection images. Low dose protocols were performed. One or more of the following dose reduction techniques were used; automated exposure control, adjustment of the mA and/or KV according to patient size, use of iterative reconstruction technique. Findings: No significant common carotid carotid bifurcation or internal carotid artery stenoses Codominant vertebral arteries with no critical stenoses On this study no definite cerebral large vessel occlusions, no thrombus IMPRESSION: No significant neck arterial stenoses No definite cerebral large vessel arterial occlusions or thrombus Please see the brain MRI report October 22, 2024 Dictated By: ySed Cleaning MD Procedure(s): XR chest 1V portable Accession Number(s): [id number] cc: Vasquez ([place]),Estrellita PATEL; Syed Cleaning MD; Edda Crum MD~ Examination: AP chest single view Technique: AP portable upright chest single view Date and time: November 25, 2024 1612 hours INDICATIONS: Stroke alert with chest pain today. FINDINGS: Normal heart size. No aspiration pneumonia. Moderate osteopenia IMPRESSION: No active disease. Dictated By: Syed Cleaning MD Medications / Prescriptions Medications or Prescriptions considered but not ordered:: None Medication administrations:: see above if any Consultations Consultation(s) initiated? (list below): Yes Consultation #1 (Physician, Specialty, Details): Discussed test HPI, PMHx, lab, radiology results and/or management with neurologist Dr. Newton. Recommends admission for a MRI. Patient had a recent normal MRI but they are concerned for her numbness. Also, recommended 75 mg of Plavix. Time: 15:58 Consultation #2 (Physician, Specialty, Details): Discussed test HPI, PMHx, lab, radiology results and/or management with resident working with the hospitalist. Will admit for further evaluation and management. Accepts patient for admission. Time: 18:01 Diagnosis Weakness Differential Diagnosis: other (Acute ischemic stroke, transient ischemic attack, and acute coronary syndrome.) Most likely diagnosis given after review of the tests above:: CVA Left sided weakness Admission Indicated Admission indicated?: indicated Admission Request Was there a request for admission?: Yes Admission Attestation Admission request attestation: Discussed case with [] from Hospitalist service regarding admission. Discussed patients ED course, exam findings, labs, and radiology results. The Hospitalist [agrees,declines] to accept the patient for admission. Disposition Plan Disposition Plan: Admit Critical Care Time Critical Care Time Critical Care Time: Yes Total Critical Care Time (min.): 45 Attestation: The high probability of sudden, clinically significant deterioration in the patient?s condition required the highest level of my preparedness to intervene urgently. The services I provided to this patient were to treat and/or prevent clinically significant deterioration. Services included the following: chart data review, reviewing nursing notes and/or old charts, documentation time, funeral pre need consultant collaboration regarding findings and treatment options, medication orders and management, direct patient care, vital sign assessments and ordering, interpreting and reviewing diagnostic studies and lab tests. Aggregate critical care time includes only time during which I was engaged in work directly related to the patient?s care, as described above, whether at bedside or elsewhere in the Emergency Department. It did not include time spent performing other reported procedures or the services of residents, students, nurses or physician assistants. Discharge Plan Plan Patient Disposition: Admit Acute Care w/in Hospital Prescriptions/Referrals Prescriptions/Med Rec: No Action insulin lispro [Humalog KwikPen Insulin] 100 unit/mL insulin pen 15 unit SUBCUT AC Patient Comments: inject 15 to 20 units subcutaneously WITH EACH MEAL three times a day lisinopril 5 mg tablet 5 mg PO DAILY Patient Comments: take 1 tablet by mouth once daily rosuvastatin 20 mg tablet 20 mg PO QDAY Qty: 30 0RF Referrals: Carlos)Estrellita PA-C [Primary Care Provider] - In 1 week Problem List Clinical Impression: CVA (cerebrovascular accident), Left-sided weakness Patient/Caregiver Discharge Instructions Print Language: Togolese Stand Alone Forms: [facility] Award Info., Patient Portal Info Letter
[2024-11-25 15:46] LABS: Basophils # (Auto) 0.1 Thou/mm3 (0.0-0.2); Basophils % (Auto) 1 % (0-2.5); Eosinophils # (Auto) 0.1 Thou/mm3 (0.0-0.5); Eosinophils % (Auto) 1 % (0-10); Hematocrit 41.9 % (36.0-46.0); Hemoglobin 14.5 g/dL (12.0-16.0); Immature Granulocytes Auto 0.01 Thou/mm3 (0.00-0.00); Lymphocytes # (Auto) 1.7 Thou/mm3 (1.0-4.8); Lymphocytes % (Auto) 24 % (10-50); Mean Corpuscular HGB Conc 34.6 g/dl (31.0-37.0); Mean Corpuscular Hemoglobin 29.2 pg (25.0-35.0); Mean Corpuscular Volume 85 fL (80-100); Monocytes # (Auto) 0.3 Thou/mm3 (0.0-0.8); Monocytes % (Auto) 4 % (0-12); Neutrophils # (Auto) 5.2 Thou/mm3 (1.8-7.7); Neutrophils % (Auto) 70 % (37-80); Nucleated Red Blood Cell # 0.00 Thou/mm3 (0.00-0.00); Nucleated Red Blood Cell % 0 /100 WBC (0); Platelet Count 319 Thou/mm3 (140-440); RDW Standard Deviation 38.5 fL (36.4-46.3); Red Blood Count 4.96 Miln/mm3 (4.00-5.20); White Blood Count 7.4 Thou/mm3 (3.6-11.0)
--- NOTE | 2024-11-25 15:53 | PD.TNEURO ---
Tele Neuro Consultation Consultation Date 11/25/24 Most Recent Vital Signs Last Vital Signs Pulse 91 11/25/24 15:24 Resp 20 11/25/24 15:24 BP 133/83 H 11/25/24 15:24 Pulse Ox 97 11/25/24 15:24 O2 Del Method Room Air 11/25/24 15:24 Consultation Narrative [facility] Tele[facility]rology [facility] Patient Name: Génesis Belcher Date of : 1965 Identification Number: Date of Service: 11/25/2024 15:24:09 Diagnosis: ? R20.2 - Paresthesia of skin Impression: ? The patient has a h/o HTN, DM, HTN, HLD, prior presentation in October with transient left sided weakness/numbness and negative MRI brain (diagnosed with pneumonia) presents with left sided numbness present on awakening today. DDx includes stroke, systemic illness, TIA. No disabling symptoms and out of time window for thrombolytics. Recommend medical workup, MRI brain w/o. Add plavix 75 mg to ASA. Our recommendations are outlined below. Recommendations: ? Stroke/Telemetry Floor ? Neuro Checks (Q4) ? Bedside Swallow Eval ? DVT Prophylaxis ? Euglycemia and Avoid Hyperthermia (PRN Acetaminophen) ? Initiate dual antiplatelet therapy with Aspirin 81 mg daily and Clopidogrel 75 mg daily. ? Antihypertensives PRN if Blood pressure is greater than 220/120 or there is a concern for End organ damage/contraindications for permissive HTN. If blood pressure is greater than 220/120 give labetalol PO or IV or Vasotec IV with a goal of 15% reduction in BP during the first 24 hours. Sign Out: ? Discussed with Emergency Department Provider Advanced Imaging: Advanced Imaging Deferred because: Non-disabling symptoms as verified by the patient; no cortical signs so not consistent with LVO Metrics: Last Known Well: 11/24/2024 22:00:00 Dispatch Time: 11/25/2024 15:24:09 Arrival Time: 11/25/2024 15:09:00 Initial Response Time: 11/25/2024 15:26:00 Symptoms: left sided weakness. Initial patient interaction: 11/25/2024 15:35:11 NIHSS Assessment Completed: 11/25/2024 15:38:42 Patient is not a candidate for Thrombolytic. Thrombolytic Medical Decision: 11/25/2024 15:38:50 Patient was not deemed candidate for Thrombolytic because of following reasons: LKW outside 4.[address] Head: I personally reviewed all the CT images that were available to me and it showed: no acute process Primary Provider Notified of Diagnostic Impression and Management Plan on: 11/25/2024 15:53:22 History of Present Illness: Patient is a 59 year old Female. Patient was brought by private transportation with symptoms of left sided weakness. The patient has a h/o HTN, DM, HLD, prior presentation in October with transient left sided weakness/numbness and negative MRI brain. She was diagnosed with pneumonia and hypertension in October she reports. She reports awakening today with left sided numbness. She last felt normal last night at 10 p.m. She has been having back and neck pain for a few days. She had nausea transiently earlier today. She has blurred vision today as well, feels a pressure in her head. She denies weakness today. She drove to the hospital. Past Medical History: ? Hypertension ? Diabetes Mellitus ? Hyperlipidemia ? There is no history of Stroke Medications: No Anticoagulant use Antiplatelet use: Yes asa Reviewed EMR for current medications Allergies: Reviewed Social History: Smoking: No Drug Use: No Family History: There is no family history of premature cerebrovascular disease pertinent to this consultation ROS : 14 Points Review of Systems was performed and was negative except mentioned in HPI. Past Surgical History: There Is No Surgical History Contributory To Today?s Visit Examination: BP(155/83), Pulse(91), Blood Glucose(257) 1A: Level of Consciousness - Alert; keenly responsive + 0 1B: Ask Month and Age - Both Questions Right + 0 1C: Blink Eyes & Squeeze Hands - Performs Both Tasks + 0 2: Test Horizontal Extraocular Movements - Normal + 0 3: Test Visual Gould - No Visual Loss + 0 4: Test Facial Palsy (Use Grimace if Obtunded) - Normal symmetry + 0 5A: Test Left Arm Motor Drift - No Drift for 10 Seconds + 0 5B: Test Right Arm Motor Drift - No Drift for 10 Seconds + 0 6A: Test Left Leg Motor Drift - No Drift for 5 Seconds + 0 6B: Test Right Leg Motor Drift - No Drift for 5 Seconds + 0 7: Test Limb Ataxia (FNF/Heel-Chawla) - No Ataxia + 0 8: Test Sensation - Mild-Moderate Loss: Can Sense Being Touched + 1 9: Test Language/Aphasia - Normal; No aphasia + 0 10: Test Dysarthria - Normal + 0 11: Test Extinction/Inattention - No abnormality + 0 NIHSS Score: 1 Pre-Morbid Modified Harvey Scale: 0 Points = No symptoms at all Spoke with : Dr. Crum This consult was conducted in real time using interactive audio and video technology. Patient was informed of the technology being used for this visit and agreed to proceed. Patient located in hospital and provider located at home/office setting. Patient is being evaluated for possible acute neurologic impairment and high probability of imminent or life-threatening deterioration. I spent total of 42 minutes providing care to this patient, including time for face to face visit via telemedicine, review of medical records, imaging studies and discussion of findings with providers, the patient and/or family. Dr Emi Leon [facility] For Inpatient follow-up with [facility] physician please call [facility] at . As we are not an outpatient service for any post hospital discharge needs please contact the hospital for assistance. If you have any questions for the [facility] physicians or need to reconsult for clinical or diagnostic changes please contact us via [facility] at . Signature : Emi Leon
[2024-11-25 16:00] LABS: INR 1.0 (0.9-1.3); Partial Thromboplastin Time 27.7 Seconds (22.0-36.0); Prothrombin Time 10.9 Seconds (9.0-12.2)
[2024-11-25 16:05] LABS: Alanine Aminotransferase 23 U/L (10-49); Albumin, Serum 4.5 gm/dL (3.5-5.0); Albumin/Globulin Ratio 1.6 (1.2-2.2); Alcohol, Blood Medical < 3.0 mg/dL (0-10.0); Alkaline Phosphatase 100 U/L (46-116); Anion Gap 10 (7-16); Aspartate Amino Transferase 25 U/L (0-34); BUN/Creatinine Ratio 10 Ratio (12-20); Bilirubin,Total 0.7 mg/dL (0.3-1.2); Blood Urea Nitrogen 9 mg/dL (9-23); Calcium 10.6 mg/dL (8.3-10.6); Calcium (Corrected) 10.6 mg/dL (8.5-10.1); Carbon Dioxide 24.8 mMol/L (20.0-31.0); Chloride 101 mMol/L (98-107); Creatinine (Component) 0.9 mg/dL (0.6-1.3); Estimated Creatinine Clearance 65.8 mL/min (>60); Globulin 2.8 gm/dL (2.3-3.5); Glucose 251 mg/dL (74-106); Magnesium 1.3 mg/dL (1.6-2.6); Osmolality,Calculated 278 (275-295); Potassium 4.3 mMol/L (3.4-5.1); Sodium 136 mMol/L (136-145); Total Protein 7.3 gm/dL (5.7-8.2); Troponin I < 0.002 ng/mL (0.0-0.045); eGFR > 60 See Note
[2024-11-25 16:08] VITALS: PULSE 73; RESP 99
[2024-11-25 16:32] LABS: Collection Type, Urine Clean Catch
[2024-11-25 16:47] LABS: Amphetamine/Methamp Scrn,U Negative (Negative); Barbiturate Screen,Urine Negative (Negative); Benzodiazepines Screen,Urine Negative (Negative); Benzoylecgonine Screen, Ur Negative (Negative); Fentanyl Screen,Urine Negative (Negative); Opiate Screen,Urine Negative (Negative); THC Screen,Urine Negative (Negative)
[2024-11-25 16:49] LABS: Bilirubin,Urine Negative (Negative); Blood,Urine Negative (Negative); Clarity,Urine Clear (Clear/Hazy); Color,Urine Colorless (Lt Yel-Yel); Culture Indicated,Urine Not Indicated; Glucose, Urine 2+ (Negative); Ketones,Urine Negative (Negative); Leukocyte Esterase,Urine Negative (Negative); Nitrite,Urine Negative (Negative); PH,Urine 7.0 (5.0-7.0); Protein,Urine Negative (Neg - Trace); RBC,Urine < 1 /hpf (0-3); Specific Gravity,Urine 1.017 (1.001-1.035); Squamous Epithelial Cell,Urine 2 /hpf (0-5); Urobilinogen,Urine Negative mg/dL (0.0-1.0); WBC,Urine < 1 /hpf (0-5)
[2024-11-25 18:16] VITALS: BP 175/122; PULSE 77; RESP 18; TEMP 36.7; O2SAT 100
--- NOTE | 2024-11-25 18:33 | PC.NURSE ---
DR. ARVIZU AND RESIDENTS AT BEDSIDE ASSESSING PATIENT. AWARE OF BP OF 175/122. PER RESIDENTS WE WILL NOT TREAT AND ALLOW PERMISSIVE HYPERTENSION
--- NOTE | 2024-11-25 18:45 | ESHP_ITS ---
<Statement entered by Patricio Ward MD - 11/26/24 08:53> Senior Resident Attestation: I supervised/discussed management plan with video production intern physician Dr. Arciniega, and was involved in the care of this patient. I personally saw and examined the patient and discussed the assessment and plan with the entire medicine team, including my attending. I agree with the assessment and plan as documented. Patient is 59 years old female with past medical history of hypertension, hyperlipidemia, type 2 diabetes presented to the ED due to left-sided weakness. Stroke alert was called and teleneuro was consulted, CT and CTA were performed showing no acute hemorrhage or mass effect and no significant carotid stenosis. Patient was also noticed to have elevated blood pressure with systolic at 190s. Patient was out of window for TNK. She was started on aspirin, Plavix and atorvastatin per neurology recommendation and was admitted for further management. Patient's care was discussed with attending physician, Dr. Contreras. Patricio Ward MD PGY-3. Documentation for date of: 11/25/24 HPI History of Present Illness History of present illness: Ms. Belcher is a 59 y/o woman with PMH of hypertension, hyperlipidemia, type 2 diabetes who presented to the ED on 11/25 with acute left-sided weakness. She states that she was watching TV and eating her breakfast this morning when she began having rhinorrhea and feeling numbness and tingling of the left side of her body followed by weakness of the left upper and lower extremities. She also noted chest pain that did not radiate during this episode. BP 188/101, taken at home. The symptoms lasted for several minutes and then self resolved. She again noticed the symptoms without the chest pain later on in the day which prompted her to go to the emergency room. She notes that she has generalized tremors but denies subjective fever, chills, recent illnesses, nausea, vomiting, abdominal pain, dysuria, melena, hematochezia, hematemesis. She reports that she was able to take her medications this morning including her lisinopril. When patient was evaluated at bedside she notes that she has continued tingling sensation on the left side of her face, left upper and lower extremity weakness. Denies current chest pain. Endorses frontal headache. Endorses blurry vision that is worse in the peripheral vision. Of note patient was recently hospitalized in October 2024 for similar symptoms. Stroke workup was negative for acute ischemic stroke. 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 MRI negative for acute ischemic stroke. EKG showed old septal infarct. Patient was discharged on aspirin, Plavix x 21 days, atorvastatin, glargine 20 units at night, lispro with meals, Jardiance 10 mg once daily. She completed the 21 days of aspirin and Plavix but stated that she ran out of refills, therefore she did not continue her aspirin. She also did not continue taking her atorvastatin because there were no refills. Patient takes Lantus 15 units QHS and Humalog with meals. She states that she was taking 15U of Humalog with each meal but would occasionally have low blood glucose, citing BG of 63 at times after taking the Humalog. She reports that she has recurrent UTIs and therefore did not want to take Jardiance. Patient was seen by Dr. Dubose outpatient on 10/26/2024 as a follow-up after hospital discharge. Dr. Dubose continued aspirin 81 mg daily, Plavix 75 mg daily, rosuvastatin 20 mg daily, Lantus 20 units daily, Lisinopril 5 mg daily. ED course: Initial BP 133/83. Afebrile, VSS. Teleneurology consulted. ELIDA 11/24 22:00. NIHSS 1 (mild-moderate sensation loss). CT head negative for acute hemorrhage, midline shift, mass effect. CTA negative for LVO or neck arterial stenoses. Labs significant for glucose 251, magnesium 1.3. Troponin negative, coag labs normal, UDS negative, UA showed 2+ glucose, negative for UTI. EKG showed NSR, HR 74, QTc 446. CXR unremarkable. No meds given by ED. PMHx: Hypertension, hyperlipidemia, type 2 diabetes, TIA, Richey's palsy, bleeding intramural uterine fibroids s/p hysterectomy, retinal hemorrhage? Allergies: Ciprofloxacin (developed ruptured tendon) Home meds: Lisinopril 5 mg daily, Lantus 15 U QHS, Humalog 15 U QAC SgHx: Hysterectomy SHx: Denies smoking, alcohol use, recreational drug use. Lives at home with her kids. FHx: Possible MS (daughter), Review of Systems Review of Systems Narrative Review of Systems: 14 point ROS negative other than HPI Exam Vital Signs Temp Pulse Resp BP Pulse Ox O2 Del Method 98.0 F 77 18 175/122 H 100 Room Air 11/25/24 18:16 11/25/24 18:16 11/25/24 18:16 11/25/24 18:16 11/25/24 18:16 11/25/24 18:16 Narrative Exam General: No acute distress, well nourished Eye: PERRL, EOMI, normal conjunctiva, no scleral icterus HENT: Normocephalic, atraumatic, hearing intact to conversation at normal volume, moist oral mucosa Neck: Supple, non-tender, no JVD, no lymphadenopathy Lungs: Non-labored respirations, symmetric chest rise Heart: Peripheral pulses intact bilaterally Abdomen: Soft, non-tender, non-distended Musculoskeletal: Normal range of motion and strength Skin: Skin is warm, dry, no rashes or lesions. Psychiatric: Cooperative, appropriate mood and affect Neurologic: Mental status: Orientation: Oriented to person, place, time, and situation Communication: Patient is cooperative and can follow simple instructions Language: Speech fluent, normal rate and volume, comprehension intact Cranial nerves: CN II: Left eye had decreased visual acuity of central vision. Otherwise visual arceo in tact. CN III: Pupils equal, round, and reactive to light CN III, IV, : No gaze deviation, no nystagmus Horizontal pursuit: intact Vertical pursuit: intact Ptosis: none CN V: Facial sensation to light touch decreased on the left at V2 and V3. Intact left V1. Intact on the right at V1, V2, and V3. CN VII: Face symmetric, no facial droop appreciated CN VIII: Able to hear and respond to conversation at normal volume, intact to finger rub CN IX, X: Palate elevation symmetric, uvula midline CN XI: Head turn and shoulder shrug strong, symmetric bilaterally CN XII: Normal tongue protrusion without deviation, no fasciculations Motor: Normal bulk and tone No atrophy No abnormal movements or fasciculations Muscle strength: Shoulder abduction: R 5/5 L 5/5 Elbow flexion: R 5/5 L 5/5 Elbow extension: R 5/5 L 5/5 Hip flexion: R 5/5 L 5/5 Hip extension: R 5/5 L 5/ Sensory: RUE: Light touch intact LUE: Light touch intact RLE: Light touch intact LLE: Light touch intact Cerebellum: RUE: No dysmetria (finger to nose) LUE: No dysmetria (finger to nose) RLE: No dysmetria (heel to be) LLE: No dysmetria (heel to be) Results: Labs 11/26/24 05:05 11/26/24 05:05 Labs: Short CBC 11/25/24 Range/Units 15:29 WBC 7.4 (3.6-11.0) Thou/mm3 Hgb 14.5 (12.0-16.0) g/dL Hct 41.9 (36.0-46.0) % Plt Count 319 D (140-440) Thou/mm3 BMP 11/25/24 15:29 Sodium 136 Potassium 4.3 Chloride 101 Carbon Dioxide 24.8 BUN 9 Creatinine 0.9 Glucose 251 H Calcium 10.6 Cardiac Enzymes 11/25/24 Range/Units 15:29 Troponin I < 0.002 (0.0-0.045) ng/mL Liver Function 11/25/24 Range/Units 15:29 Total Bilirubin 0.7 (0.3-1.2) mg/dL AST 25 (0-34) U/L ALT 23 (10-49) U/L Alkaline Phosphatase 100 (46-116) U/L Albumin 4.5 (3.5-5.0) gm/dL Urine 11/25/24 Range/Units 16:12 Urine Color Colorless A (Lt Yel-Yel) Urine Clarity Clear (Clear/Hazy) Urine pH 7.0 (5.0-7.0) Ur Specific [place] 1.017 (1.001-1.035) Urine Protein Negative (Neg - Trace) Urine Glucose (UA) 2+ A (Negative) Quality Measures Quality Measures none Medications Home Medications and Allergies Home Medications ?Medication ?Instructions ?Recorded ?Confirmed ?Type insulin lispro 100 unit/mL 15 unit subcut AC 02/26/20 10/22/24 History subcutaneous pen (Humalog KwikPen (U-100) Insulin) lisinopril 5 mg tablet 5 mg PO DAILY 10/22/2410/22 History Allergies Allergy/AdvReac Type Severity Reaction Status Date / Time ciprofloxacin Allergy Severe Hives Verified 10/31/24 17:35 Visit Medications Acetaminophen (Acetaminophen 325 Mg Tablet) 650 mg PO Q6H PRN PRN Reason: Fever >101.5 Stop: 09/20/25 18:40 Acetaminophen (Acetaminophen 325 Mg Tablet) 650 mg PO Q6H PRN PRN Reason: PAIN SCALE 1-3 (mild Stop: 12/25/24 18:40 Heparin Sodium (Porcine) (Heparin Sod Inj 5000 Unit/Ml Vial) 5,000 unit SC Q8HR PEDRO Stop: 12/09/24 21:59 Ibuprofen (Ibuprofen Tab 400 Mg Tablet) 400 mg PO Q6HR PRN PRN Reason: Fever > 100.3 Stop: 12/25/24 18:40 Ondansetron HCl (Ondansetron Inj 2 Mg/Ml Inj 2 Ml) 4 mg IVP Q6H PRN; Protocol PRN Reason: NAUSEA OR VOMITING Stop: 12/25/24 18:40 Assessment & Plan Plan #Stroke vs TIA w/u #Hx TIA #Hx Right M2 occlusion Hx stroke/TIA: hx TIA October 2024 Hx afib: none Smoking hx: none Initial symptoms: Left UE and LE weakness, left facial, UE and LE paresthesias LKAW: 11/24 22:00. Initial NIHSS: 1 (mild-moderate sensation loss) Inital BP: 133/83 EKG: NSR HR 74, QTc 446 Initial glucose: 251 UDS: negative A1C: pending Lipids: pending TSH: pending Troponin: negative x1 CT head w/o: negative for acute hemorrhage, midline shift, or mass effect CTA head/neck w/: negative for LVO, arterial stenoses MRI/MRA w/ and w/o: pending TTE: pending Meds given: Aspirin 81 mg, plavix 75 mg, Mg sulfate 4 gm Plan: - Neuro checks q4h - Aspirin 81 mg PO daily - Plavix 75 mg PO daily - Atorvastatin 40 mg PO daily - BP management with home lisinopril 5 mg PO daily. - If BP >220/120 --> give labetalol PO or IV or Enalapril IV with goal of 15% reduction in BP first 24 hours - Pending MRI stroke protocol, TTE, lipid panel, TSH, A1C - Consulted neurology (Dr. Patel), appreciate recs #Hypertension BP at home 188/101 and symptomatic. 133/83 on admission. 175/122 during evaluation. Home med: Lisinopril 5 mg PO daily Plan: - Continue home lisinopril 5 mg PO daily - See above for added BP management #Hyperlipidemia Previously prescribed rosuvastatin 20 mg PO daily Not taking med at home b/c no refills Plan: - Atorvastatin 40 mg PO daily #Type 2 diabetes mellitus Home med: Lantus 15 U QHS + Humalog 15 U QAC Initial B Plan: - SSI #Hypomagnesemia Plan: - Replete as needed Checklist Dispo: pending stroke w/u Diet: carb consistent Bowel Reg: Doc-senna PRN VTE ppx: Heparin 5000 U subQ q8h GI ppx: none Pain mgmt: Tylenol PO, ibuprogen PO Code status: full Plan discussed with Dr. Ward and Dr. Ben Arciniega MD PGY1 Attending Provider Attestation/Addendum I, Amarilys Contreras DO, attest that I was physically present for the yarbrough portions of the service and evaluated the patient with the resident and I reviewed and discussed the case with the resident and agree with the resident's findings and plans of care as documented above Patient is a 59-year-old female with past medical history of hypertension, hyperlipidemia, type 2 diabetes who presented to the ED with left-sided weakness. Patient states that her intermittent this morning if she was making breakfast. They feel numbness around the left side of her face and arm and began to have some rhinorrhea. She then felt worsening of symptoms that she was eating. Daughter at bedside states that they checked her blood pressure and it was significantly elevated at 180/101. Patient has had similar symptoms in the past but were self-limited. Patient subsequently came to the ED due to her uncontrolled BP. She continued to have some tingling and numbness in her left upper extremity. Upon exam, patient was shivering and states that she is unclear why. She tends to have the shivering as her symptoms comes in waves. She endorses some blurry vision in her left eye which she states she had a hemorrhage in the past. She denies any chest pain at this time. Patient had recently been admitted in October during which CVA workup was negative. Patient did say that she took her lisinopril this morning. Blood pressure remains elevated at evaluation at 175/122. Teleneuro was called and recommended patient to be admitted and undergo further CVA workup. Will admit patient to telemetry for further workup medical management of uncontrolled hypertension and rule out CVA. Initial CT head done in the ED shows no acute intracranial findings. CTA head and neck shows no LVO or arterial stenosis. CT on previous admission had shown occlusion of the right M2 segment of MCA. Patient states that she has been taking her medications at home. Will allow for permissive hypertension at this time. Will start patient on aspirin, Plavix and statin. Will obtain repeat MRI, lipid panel, TSH, A1c. On exam, patient had blurry vision in the upper visual arceo of her left eye. She also has decreased sensation on the left side of her face. Otherwise, the rest of exam was unremarkable.
[2024-11-25] MEDS: ASPIRIN EC 81 MG TABEC PO (19:44)
[2024-11-25] MEDS: CLOPIDOGREL BISULFATE 75 MG TABLET PO (19:44)
[2024-11-25] MEDS: Magnesium Sulfate 4 GM Ivpb 4 GM/50 ML BAG IV (19:47)
[2024-11-25 19:59] VITALS: BP 177/76; PULSE 73; PULSE 74; RESP 16; TEMP 37; O2SAT 98
[2024-11-25] MEDS: HEPARIN SOD INJ 5000 UNIT/ML VIAL SC (22:38)
[2024-11-25] MEDS: ATORVASTATIN CALCIUM 20 MG TABLET 40 MG PO (22:40)
--- NOTE | 2024-11-25 23:25 | PC.NURSE ---
called hospitalist to report B/P, waiting on callback
[2024-11-25 23:49] VITALS: BP 205/93; PULSE 70
[2024-11-25] MEDS: hydrALAZINE INJ 20 MG/ML VIAL 10 MG IVP (23:49)
[2024-11-25 23:52] VITALS: BP 205/93; PULSE 70; PULSE 71; RESP 19; TEMP 37; O2SAT 96
[2024-11-26] VITALS (7 sets, daily range): BP systolic 100–171; BP diastolic 69–90; PULSE 72–98; RESP 12–24; TEMP 36.4–37.3; O2SAT 94–99; BMI 32.5
--- NOTE | 2024-11-26 | XR_ITS ---
Examinations: MRI Brain without intravenous contrast. MRI brain with intravenous contrast MRA brain with intravenous contrast. MRA brain without intravenous contrast MRA neck with intravenous contrast Date and time of exam: November 26, 2024 0855 hours, comparison October 22, 2024 INDICATIONS: Stroke alert yesterday, onset left-sided body numbness and weakness Technique: Multiple axial and sagittal images of the brain have been obtained Siemens high-resolution 1.5 Narda short bore scanner is utilized. Sagittal sections, T1-weighted, TR 500, TE 14 Axial sections proton density and T2-weighted, TR 3,000, TE 34, TR 3,000, TE 91 Inversion recovery axial images, TR 9,260, TE 111, TI 2,500 Diffusion weighted images, axial sections, TR 4,800, TE 128, B value 1,000 Axial sections, ADC map, TR 4,800, TE 128. Contrast images have been obtained post intravenous 19 cc Gadolinium. T1-weighted axial and coronal images post contrast have been obtained. Angiographic images of neck and brain are obtained pre and post contrast. 3-D post processing performed, including brain, extracranial neck arterial maximum intensity projections Findings: Sellaturcica is not enlarged. The optic chiasm and infundibular stalk are not remarkable. Prepontine and interpeduncular cisterns are not enlarged. No localized enlargement of the medulla or herbie. Fourth ventricle and cerebellar tonsils normal in position. Subacute hemorrhage is not seen. Fourth ventricle is midline. Mass in the cerebellopontine angle region is not evident. 7th and 8th nerve complexes exhibits symmetry. Globes are symmetrical with no retro-orbital mass. Increased white matter signal evident, scattered punctate foci increased signal in the frontal parietal white matter Diffusion-weighted images demonstrateno focus of restricted diffusion. Mass-effect upon the ventricular system is not identified. Abnormal contrast enhancement is seen. MRA brain carotid images no carotid stenoses, no cerebral large vessel arterial occlusions Impression: Negative for acute hemorrhage mass effect or midline shift No acute infarct Scattered punctate foci increased signal in the white matter, demyelinating disease pattern
[2024-11-26 05:45] LABS: Basophils # (Auto) 0.1 Thou/mm3 (0.0-0.2); Basophils % (Auto) 1 % (0-2.5); Eosinophils # (Auto) 0.1 Thou/mm3 (0.0-0.5); Eosinophils % (Auto) 2 % (0-10); Hematocrit 41.4 % (36.0-46.0); Hemoglobin 14.3 g/dL (12.0-16.0); Immature Granulocytes Auto 0.01 Thou/mm3 (0.00-0.00); Lymphocytes # (Auto) 2.3 Thou/mm3 (1.0-4.8); Lymphocytes % (Auto) 35 % (10-50); Mean Corpuscular HGB Conc 34.5 g/dl (31.0-37.0); Mean Corpuscular Hemoglobin 29.4 pg (25.0-35.0); Mean Corpuscular Volume 85 fL (80-100); Monocytes # (Auto) 0.4 Thou/mm3 (0.0-0.8); Monocytes % (Auto) 6 % (0-12); Neutrophils # (Auto) 3.7 Thou/mm3 (1.8-7.7); Neutrophils % (Auto) 56 % (37-80); Nucleated Red Blood Cell # 0.00 Thou/mm3 (0.00-0.00); Nucleated Red Blood Cell % 0 /100 WBC (0); Platelet Count 331 Thou/mm3 (140-440); RDW Standard Deviation 39.3 fL (36.4-46.3); Red Blood Count 4.87 Miln/mm3 (4.00-5.20); White Blood Count 6.6 Thou/mm3 (3.6-11.0)
[2024-11-26 05:59] LABS: Glucose Estimated Average 283 mg/dL (80-131); Hemoglobin A1C 11.5 % Hgb (4.8-6.0)
[2024-11-26] MEDS: HEPARIN SOD INJ 5000 UNIT/ML VIAL SC ×3 (06:03→21:21)
[2024-11-26 07:00] LABS: Alanine Aminotransferase 23 U/L (10-49); Albumin, Serum 4.3 gm/dL (3.5-5.0); Albumin/Globulin Ratio 1.6 (1.2-2.2); Alkaline Phosphatase 94 U/L (46-116); Anion Gap 13 (7-16); Aspartate Amino Transferase 19 U/L (0-34); BUN/Creatinine Ratio 13 Ratio (12-20); Bilirubin,Total 0.7 mg/dL (0.3-1.2); Blood Urea Nitrogen 12 mg/dL (9-23); Calcium 10.3 mg/dL (8.3-10.6); Calcium (Corrected) 10.3 mg/dL (8.5-10.1); Carbon Dioxide 25.6 mMol/L (20.0-31.0); Chloride 102 mMol/L (98-107); Creatinine (Component) 0.9 mg/dL (0.6-1.3); Estimated Creatinine Clearance 65.8 mL/min (>60); Globulin 2.7 gm/dL (2.3-3.5); Glucose 273 mg/dL (74-106); Magnesium 2.3 mg/dL (1.6-2.6); Osmolality,Calculated 290 (275-295); Phosphorous 4.0 mg/dL (2.4-5.1); Potassium 4.0 mMol/L (3.4-5.1); Sodium 141 mMol/L (136-145); Thyroid Stimulating Hormone 2.97 uIU/mL (0.55-4.78); Total Protein 7.0 gm/dL (5.7-8.2); eGFR > 60 See Note
[2024-11-26 07:16] LABS: Cardiac Risk Estimate 3.8 RATIO (3.7-5.6); Cholesterol 162 mg/dL (132-200); HDL Cholesterol 43 mg/dL (40-60); LDL Cholesterol,Calculated 71 mg/dL (0-130); Triglycerides 241 mg/dL (30-150)
[2024-11-26] MEDS: INSULIN LISPRO (AdmeLOG) 1 UNIT/0.01 ML UNIT SC ×4 (07:53→21:59)
--- NOTE | 2024-11-26 07:55 | PC.NURSE ---
Pt. here from home to room 1, pt. states she was at home yesterday and was dizzy and could feel her blood pressure going up and down throughout the day. Pt. states when it woke up she was in the 200's so she decided to come in. Pt. states she takes her meds as prescribed. Pt. states she exercises as well. Pt. states she has a CASILLAS at this time to her whole head and the back of neck, pt. states her CASILLAS and dizziness are better today compared to yesterday. Pt. denies any weakness at this time. Pt. sitting up in bed eating her breakfast, tolerating well. No s/s of distress at this time.
--- NOTE | 2024-11-26 08:37 | PC.NURSE ---
Farhan called from MRI and states that pt. will go to MRI and then he will call to have pt. taken up. Informed pt. and pt.'s nurse
[2024-11-26] MEDS: CLOPIDOGREL BISULFATE 75 MG TABLET PO (10:25)
[2024-11-26] MEDS: ASPIRIN EC 81 MG TABEC PO (10:26)
[2024-11-26] MEDS: INSULIN DEGLUDEC 5 UNIT/0.05 ML (PER 5 UNITS) 20 UNIT SC (12:38)
[2024-11-26] MEDS: ACETAMINOPHEN 325 MG TABLET 650 MG PO (13:22)
[2024-11-26] MEDS: SENNA/DOCUSATE SOD 1 TAB TABLET PO (13:22)
--- NOTE | 2024-11-26 17:42 | ESDS_ITS ---
<Statement entered by Amarilys Contreras DO - 11/27/24 09:59> I, Amarilys Contreras DO, attest that I was physically present for the yarbrough portions of the service and evaluated the patient with the resident and I reviewed and discussed the case with the resident and agree with the resident's findings and plans of care as documented above <Statement entered by Jimmy Velez MD - 11/26/24 19:12> Patient was examined and case was reviewed with team including attending physician. Note reviewed, I agree with most of its contents and agree with the patient's care as documented by Dr. Mehdi Velez MD PGY-2 Planned Discharge Date 11/26/24 DS: Providers Provider Date of admission: 11/25/24 18:41 [facility] Admitting Provider: Amarilys Contreras DO Attending Provider on Admission: Amarilys Contreras DO Consults: 11/25/24 15:28 Consult to Neurology / Tele-Neurology Stat Comment: Consulting Provider: [facility] 11/25/24 19:34 Consult to Neurology / Tele-Neurology Routine Comment: Consulting Provider: German Patel 11/25/24 19:35 Referral Physical Therapy Routine Comment: Physician Instructions: Attending Provider on DC: Amarilys Contreras DO Discharging Provider: César Harding DO Anticipated date of discharge: 11/26/24 DS: Diagnosis Problem List Completed Was Problem List Reviewed/Reconciled?: Yes Hospital Course Hospital Course Hospital course: 59 year-old female with past medical history of hypertension, hyperlipidemia, type 2 diabetes who presented to the ED on 11/25 for acute left-sided weakness and uncontrolled hypertension with systolic in the 190s, with associated blurry vision in left eye. Stroke alert was called and teleneuro was consulted. CT and CTA were performed showing no acute hemorrhage or mass effect and no significant carotid sclerosis. Patient was out of the window for TNK. Patient was started on aspirin, Plavix, and atorvastatin per neurology recommendation. Permissive hypertension was allowed. MRI showed no acute infarct. Education was provided about better glucose control for her diabetes and hypertension as this can contribute to vision changes and overall symptoms. Symptoms have much improved. Cleared by neurology for discharge home. Patient is medically and physically stable for discharge. Diagnosis: #Transient ischemic attack #History of right M2 occlusion #Hypertension #Hyperlipidemia #Type 2 diabetes mellitus #Hypomagnesemia Discharge Plan: Follow up with primary care physician within 1 week of discharge for better blood glucose control. Follow up with Neurology within 2 weeks of discharge You have been prescribed atorvastatin and aspirin for stroke prophylaxis your lisinopril dose has been adjusted please do not take your old prescription. Your new dose is lisinopril 40mg once a day Should your symptoms recur or worsen patient is instructed to return to the ED. Case discussed with my senior resident Dr. Joshua Velez and with my attending Dr. Contreras. César Harding DO PGY 1 Status at Discharge Overall status at discharge: patient is back to baseline Time Spent with Patient Time attestation: Total time spent providing and/or coordinating discharge services: Time spent: Greater than 30 minutes Exam Vital Signs Temp Pulse Resp BP Pulse Ox O2 Del Method 98.3 F 82 20 133/74 H 97 Room Air 11/26/24 12:00 11/26/24 16:00 11/26/24 12:00 11/26/24 12:00 11/26/24 12:00 11/26/24 12:00 Narrative Exam General: No acute distress, well nourished Eye: PERRL, EOMI, normal conjunctiva, no scleral icterus HENT: Normocephalic, atraumatic, hearing intact to conversation at normal volume, moist oral mucosa Neck: Supple, non-tender, no JVD, no lymphadenopathy Lungs: Non-labored respirations, symmetric chest rise Heart: Peripheral pulses intact bilaterally Abdomen: Soft, non-tender, non-distended Musculoskeletal: Normal range of motion and strength Skin: Skin is warm, dry, no rashes or lesions. Psychiatric: Cooperative, appropriate mood and affect Neuro: Bilateral decreased visual acuity of central vision per patient. Sensory and motor intact. Discharge Plan Plan Patient Disposition: HOME (Self Care) Patient condition on transfer: Stable Care Plan Goals: Follow up with primary care physician within 1 week of discharge for better blood glucose control. Follow up with Neurology within 2 weeks of discharge You have been prescribed atorvastatin and aspirin for stroke prophylaxis your lisinopril dose has been adjusted please do not take your old prescription. Your new dose is lisinopril 40mg once a day Should your symptoms recur or worsen patient is instructed to return ot the ED. Prescriptions/Referrals Prescriptions/Med Rec: New atorvastatin 80 mg tablet 80 mg PO QDAY Qty: 30 0RF lisinopril 40 mg tablet 40 mg PO QDAY Qty: 30 0RF insulin degludec [Tresiba FlexTouch U-100] 100 unit/mL (3 mL) insulin pen 22 unit subcut HS Qty: 15 0RF (DME) FreeStyle Harjinder 3 Morgan Misc See Rx Instructions .Route Qty: 1 0RF Rx Instructions: As directed (DME) FreeStyle Harjinder 3 Plus Sensor Device See Rx Instructions .Route Qty: 1 2RF Rx Instructions: As directed Continued insulin lispro [Humalog KwikPen Insulin] 100 unit/mL insulin pen 15 unit SUBCUT AC Patient Comments: inject 15 to 20 units subcutaneously WITH EACH MEAL three times a day rosuvastatin 20 mg tablet 20 mg PO QDAY Qty: 30 0RF aspirin 81 mg tablet,delayed release (DR/EC) 81 mg PO DAILY Patient Comments: TAKE 1 TABLET BY MOUTH EVERY DAY Discontinued lisinopril 5 mg tablet 5 mg PO DAILY Patient Comments: take 1 tablet by mouth once daily insulin degludec [Tresiba FlexTouch U-100] 100 unit/mL (3 mL) insulin pen 15 unit SUBCUT HS Patient Comments: INECT 15 UNITS SUBCUTANEOUS PER INSULIN PROTOCL EVERY DAY Referrals: Pedro([facility]),AMANDA Haro [Primary Care Provider] - Patient/Caregiver Discharge Instructions Print Language: Libyan Stand Alone Forms: Belinda Award Info., Patient Portal Info Letter Discharge Order Discharge Orders: Discharge (Routine); Ordered 11/27/24 Ordered By: Patricio Ward Quality Discharge Quality Measures none
[2024-11-26] MEDS: ATORVASTATIN CALCIUM 20 MG TABLET 40 MG PO (21:21)
--- NOTE | 2024-11-26 23:13 | PD.NEUROPROG ---
Documentation for date of: 11/26/24 Subjective Subjective Interval history: Patient was seen in [facility] [place], no new symptoms reported. Exam - Neurology Vital Signs Temp Pulse Resp BP Pulse Ox O2 Del Method 97.6 F 78 24 H 118/73 97 Room Air 11/26/24 20:00 11/26/24 20:00 11/26/24 20:00 11/26/24 20:00 11/26/24 20:00 11/26/24 20:00 Narrative Exam GENERAL APPEARANCE: Well hydrated, well-nourished in no acute distress. HEENT: Normocephalic, atraumatic, extraocular movements intact. Pupils: Equal reacting to light and accommodation NECK: Supple, no JVD or bruits. CARDIOVASULAR: Heart: S1, S2 heard, regular without S3-S4 or murmur no rubs or gallops. LUNGS/CHEST: Clear to auscultation bilaterally. No rails, rhonchi, or wheezing. Normal inspection. ABDOMEN: Soft, nontender, with normal bowel sounds. No pulsatile masses. No rebound, rigidity, or guarding. Normal inspection and palpation. EXTREMITIES: Normal inspection and palpation. No edema, clubbing or cyanosis. SKIN: Warm and dry without rashes. Normal inspection. MUSCULOSKELETAL: No cervical, thoracic, lumbar or midline bony tenderness. Normal inspection. NEURO: Alert, awake and oriented x3. Cranial nerves: II through XII grossly intact. Speech and language: Normal with no dysarthria or dysphasia. Motor system: Tone and bulk: Normal: Strength: 5 out of 5 in all 4 extremities; No pronator drift noted. Deep tendon reflexes: 2+ bilaterally symmetrical. Plantar reflex: Downgoing bilaterally. Sensory system: Intact to all modalities of sensation bilaterally. Coordination: Intact to [id number]-[id number] and qpvr-thjd-edoi test bilaterally. No ataxia, no dysmetria, or dysdiadochokinesia noted. No intention tremors noted. Gait: Normal. Toe, heel, tandem walk all are normal. Romberg: Negative. No signs of meningeal irritation noted. PSYCHIATRIC: Normal mood and affect. Objective Labs 11/27/24 06:01 11/27/24 06:01 Labs: Laboratory Results - last 24 hr 11/26/24 05:05 WBC 6.6 RBC 4.87 Hgb 14.3 Hct 41.4 MCV 85 MCH 29.4 MCHC 34.5 RDW Std Deviation 39.3 Plt Count 331 Neut % (Auto) 56 Lymph % (Auto) 35 [place] % (Auto) 6 Eos % (Auto) 2 Baso % (Auto) 1 Neut # (Auto) 3.7 Lymph # (Auto) 2.3 [place] # (Auto) 0.4 Eos # (Auto) 0.1 Baso # (Auto) 0.1 Immature Gran # (Auto) 0.01 H Absolute Nucleated RBC 0.00 Immature Gran % 0 Nucleated RBC % 0 Sodium 141 Potassium 4.0 Chloride 102 Carbon Dioxide 25.6 Anion Gap 13 BUN 12 Creatinine 0.9 Estim Creat Clear Calc 65.8 eGFR > 60 BUN/Creatinine Ratio [address] Glu mg/dL 283 H Hemoglobin A1c 11.5 H Calculated Osmolality 290 Calcium 10.3 Corrected Calcium 10.3 H Phosphorus 4.0 Magnesium 2.3 Total Bilirubin 0.7 AST 19 ALT 23 Alkaline Phosphatase 94 Total Protein 7.0 Albumin 4.3 Globulin 2.7 Albumin/Globulin Ratio 1.6 Triglycerides 241 H Cholesterol 162 LDL Cholesterol, Calc 71 HDL Cholesterol 43 Cholesterol/HDL Ratio 3.8 TSH 2.97 Assessment & Plan Assessment and plan (1) Hypertensive emergency: Status: Acute Assessment and plan: Resolved continue with aggressive blood pressure management as the MRI brain is negative for acute infarct (2) Stroke-like symptoms: Status: Acute Assessment and plan: Resolved Reassurance given to the patient regarding the negative MRI brain for acute stroke. Continue with aspirin and blood pressure management (3) Type 2 diabetes mellitus: Status: Acute Assessment and plan: Continue with aggressive blood sugar management to keep the A1c under 7
[2024-11-27] VITALS: BP 153/86; PULSE 116; PULSE 67; RESP 17; TEMP 36.6; O2SAT 97
[2024-11-27 04:00] VITALS: BP 105/63; PULSE 60; PULSE 62; RESP 13; TEMP 36.2; O2SAT 96
[2024-11-27] MEDS: HEPARIN SOD INJ 5000 UNIT/ML VIAL SC (05:11)
[2024-11-27] MEDS: SENNA/DOCUSATE SOD 1 TAB TABLET PO (05:11)
[2024-11-27 05:35] VITALS: BMI 33.4
[2024-11-27 06:21] LABS: Basophils # (Auto) 0.1 Thou/mm3 (0.0-0.2); Basophils % (Auto) 1 % (0-2.5); Eosinophils # (Auto) 0.1 Thou/mm3 (0.0-0.5); Eosinophils % (Auto) 2 % (0-10); Hematocrit 40.5 % (36.0-46.0); Hemoglobin 13.8 g/dL (12.0-16.0); Immature Granulocytes Auto 0.01 Thou/mm3 (0.00-0.00); Lymphocytes # (Auto) 2.0 Thou/mm3 (1.0-4.8); Lymphocytes % (Auto) 29 % (10-50); Mean Corpuscular HGB Conc 34.1 g/dl (31.0-37.0); Mean Corpuscular Hemoglobin 28.9 pg (25.0-35.0); Mean Corpuscular Volume 85 fL (80-100); Monocytes # (Auto) 0.4 Thou/mm3 (0.0-0.8); Monocytes % (Auto) 5 % (0-12); Neutrophils # (Auto) 4.4 Thou/mm3 (1.8-7.7); Neutrophils % (Auto) 64 % (37-80); Nucleated Red Blood Cell # 0.00 Thou/mm3 (0.00-0.00); Nucleated Red Blood Cell % 0 /100 WBC (0); Platelet Count 304 Thou/mm3 (140-440); RDW Standard Deviation 39.2 fL (36.4-46.3); Red Blood Count 4.77 Miln/mm3 (4.00-5.20); White Blood Count 6.9 Thou/mm3 (3.6-11.0)
[2024-11-27 06:50] LABS: Alanine Aminotransferase 18 U/L (10-49); Albumin, Serum 4.1 gm/dL (3.5-5.0); Albumin/Globulin Ratio 1.4 (1.2-2.2); Alkaline Phosphatase 85 U/L (46-116); Anion Gap 10 (7-16); Aspartate Amino Transferase 20 U/L (0-34); BUN/Creatinine Ratio 12 Ratio (12-20); Bilirubin,Total 0.5 mg/dL (0.3-1.2); Blood Urea Nitrogen 12 mg/dL (9-23); Calcium 10.2 mg/dL (8.3-10.6); Calcium (Corrected) 10.2 mg/dL (8.5-10.1); Carbon Dioxide 28.2 mMol/L (20.0-31.0); Chloride 102 mMol/L (98-107); Creatinine (Component) 1.0 mg/dL (0.6-1.3); Estimated Creatinine Clearance 59.6 mL/min (>60); Globulin 3.0 gm/dL (2.3-3.5); Glucose 193 mg/dL (74-106); Magnesium 2.0 mg/dL (1.6-2.6); Osmolality,Calculated 284 (275-295); Phosphorous 3.7 mg/dL (2.4-5.1); Potassium 4.2 mMol/L (3.4-5.1); Sodium 140 mMol/L (136-145); Total Protein 7.1 gm/dL (5.7-8.2); eGFR > 60 See Note
[2024-11-27] MEDS: INSULIN LISPRO (AdmeLOG) 1 UNIT/0.01 ML UNIT SC (07:43)
--- NOTE | 2024-11-27 07:48 | ESDS_ITS ---
Planned Discharge Date 11/27/24 DS: Providers Provider Date of admission: 11/25/24 18:41 [facility] Admitting Provider: Amarilys Contreras DO Attending Provider on Admission: Amarilys Contreras DO Consults: 11/25/24 15:28 Consult to Neurology / Tele-Neurology Stat Comment: Consulting Provider: [facility] 11/25/24 19:34 Consult to Neurology / Tele-Neurology Routine Comment: Consulting Provider: German Patel 11/25/24 19:35 Referral Physical Therapy Routine Comment: Physician Instructions: Attending Provider on DC: Patricio Ward MD Discharging Provider: Patricio Ward MD DS: Diagnosis Problem List Completed Was Problem List Reviewed/Reconciled?: Yes Hospital Course Hospital Course Hospital course: 59 year-old female with past medical history of hypertension, hyperlipidemia, type 2 diabetes who presented to the ED on 11/25 for acute left-sided weakness and uncontrolled hypertension with systolic in the 190s, with associated blurry vision in left eye. Stroke alert was called and teleneuro was consulted. CT and CTA were performed showing no acute hemorrhage or mass effect and no significant carotid sclerosis. Patient was out of the window for TNK. Patient was started on aspirin, Plavix, and atorvastatin per neurology recommendation. Permissive hypertension was allowed. MRI showed no acute infarct. Education was provided about better glucose control for her diabetes as this can contribute to vision changes. Patient is medically and physically stable for discharge. Diagnosis: #Transient ischemic attack #History of transient ischemic attack #History of right M2 occlusion #Hypertension #Hyperlipidemia #Type 2 diabetes mellitus #Hypomagnesemia Discharge Plan: Follow up with primary care physician within 1 week of discharge for better blood glucose control. Follow up with Neurology within 2 weeks of discharge You have been prescribed atorvastatin and aspirin for stroke prophylaxis your lisinopril dose has been adjusted please do not take your old prescription. Your new dose is lisinopril 40mg once a day Should your symptoms recur or worsen patient is instructed to return to the ED. Plan of care discussed with attending Dr. Damico. Patricio Ward MD, PGY 3. Disclaimer: This note was dictated by speech recognition. Minor errors in stage electrician helper may be present due to voice recognition software. Time Spent with Patient Time attestation: Total time spent providing and/or coordinating discharge services: Time spent: Greater than 30 minutes Exam Vital Signs Temp Pulse Resp BP Pulse Ox O2 Del Method 97.2 F 60 13 105/63 96 Room Air 11/27/24 04:00 11/27/24 04:00 11/27/24 04:00 11/27/24 04:00 11/27/24 04:00 11/27/24 04:00 Narrative Exam Gen: Well-developed and well-nourished obese female. HEENT: NCAT, PERRLA, EOMI, MMM, anicteric conjunctivae. CVS: normal S1 and S2. RRR. No M/R/G. Resp: CTA B/L. No rhonchi, rales, crackles or wheezing. Abd: soft, non-tender, non-distended. BS+ in all 4 quadrants. MSK: Good ROM in BUE & BLE. No edema or rash. Neuro: CN II-XII grossly intact. Strength 5/5 in BUE & BLE. Alert and oriented x3. Psych: appropriate mood and affect. Discharge Plan Plan Patient Disposition: HOME (Self Care) Patient condition on transfer: Stable Care Plan Goals: Follow up with primary care physician within 1 week of discharge for better blood glucose control. Follow up with Neurology within 2 weeks of discharge You have been prescribed atorvastatin and aspirin for stroke prophylaxis your lisinopril dose has been adjusted please do not take your old prescription. Your new dose is lisinopril 40mg once a day Should your symptoms recur or worsen patient is instructed to return ot the ED. Prescriptions/Referrals Prescriptions/Med Rec: New atorvastatin 80 mg tablet 80 mg PO QDAY Qty: 30 0RF lisinopril 40 mg tablet 40 mg PO QDAY Qty: 30 0RF insulin degludec [Tresiba FlexTouch U-100] 100 unit/mL (3 mL) insulin pen 22 unit subcut HS Qty: 15 0RF (DME) FreeStyle Harjinder 3 [place] Misc See Rx Instructions .Route Qty: 1 0RF Rx Instructions: As directed (DME) FreeStyle Harjinder 3 Plus Sensor Device See Rx Instructions .Route Qty: 1 2RF Rx Instructions: As directed Continued insulin lispro [Humalog KwikPen Insulin] 100 unit/mL insulin pen 15 unit SUBCUT AC Patient Comments: inject 15 to 20 units subcutaneously WITH EACH MEAL three times a day rosuvastatin 20 mg tablet 20 mg PO QDAY Qty: 30 0RF aspirin 81 mg tablet,delayed release (DR/EC) 81 mg PO DAILY Patient Comments: TAKE 1 TABLET BY MOUTH EVERY DAY Discontinued lisinopril 5 mg tablet 5 mg PO DAILY Patient Comments: take 1 tablet by mouth once daily insulin degludec [Tresiba FlexTouch U-100] 100 unit/mL (3 mL) insulin pen 15 unit SUBCUT HS Patient Comments: INECT 15 UNITS SUBCUTANEOUS PER INSULIN PROTOCL EVERY DAY Referrals: Pedro([facility]),AMANDA Haro [Primary Care Provider] - Patient/Caregiver Discharge Instructions Education Materials: Stroke Self Care After, ED Stroke, Completed Print Language: Sinhala Stand Alone Forms: Belinda Award Info., Patient Portal Info Letter Discharge Order Discharge Orders: Discharge (Routine); Ordered 11/27/24 Ordered By: Patricio Ward Quality Discharge Quality Measures VTE prophylaxis
[2024-11-27 08:00] VITALS: BP 125/73; PULSE 68; RESP 18; TEMP 36.2; O2SAT 97
[2024-11-27] MEDS: CLOPIDOGREL BISULFATE 75 MG TABLET PO (09:45)
[2024-11-27] MEDS: ASPIRIN EC 81 MG TABEC PO (09:45)
== END 2024-11-27 11:01 | disposition home or self-care (01) ==
LOC: SERX 18:16 → SERHOLD 11-26 05:51 → S2NX 11-26 12:39 → S3NX 11-29 10:48 → SERHOLD 11-29 10:48
PROVIDERS: Admitting Provider Internal Medicine; Emergency Provider Emergency Medicine; PCP Nurse Practitioner Family; Visit Provider Internal Medicine
DX: G45.9 Transient cerebral ischemic attack, unspecified (principal); R53.1 Weakness; I10 Essential (primary) hypertension; E83.42 Hypomagnesemia; E78.5 Hyperlipidemia, unspecified; I25.2 Old myocardial infarction; E11.9 Type 2 diabetes mellitus without complications; I16.1 Hypertensive emergency
CPT/HCPCS: 36415; 70450; 70496; 70498; 70553; 71045; 80053; 80061; 80307; 80320; 81001; 83036; 83735; 84100; 84443; 84484; 85025; 85610; 85730; 93005; 96365; 96366; 96372; 96375; 99284; A4649; A9577; G0378; J0360; J1644; J1815; J3475; Q9967; A9270; G0480

== ENCOUNTER 2024-11-30 13:20 | Outpatient (AMB) | payer MEDICAID, SELFPAY ==
[2024-11-30 13:34] VITALS: BP 132/82; PULSE 79; RESP 18; TEMP 37.1; O2SAT 94; BMI 33.5
--- NOTE | 2024-11-30 13:34 | ACNOTE_ITS ---
Vital Signs 11/30/24 13:34 Height 1.55 m Height Method Stated Weight 80.399 kg Weight Measurement Method Standing Scale BMI 33.5 BP 132/82 H Blood Pressure Source Automatic Cuff Blood Pressure Location Left Upper Arm Position Sitting Respiration 18 Pulse 79 Pulse Source Monitor Temp 98.8 F Temp Source Oral Pulse Oximetry (%) 94 L Oxygen Delivery Method Room Air Allergies/Meds Allergies & Medications Allergies ciprofloxacin Allergy (Severe, Verified 12/02/24 14:37) Hives Medication Reconciliation blood-glucose sensor (iMemoriesStyle Harjinder 3 Plus Sensor device) #1 ea 11/26/24 [Rx Confirmed 12/02/24] blood-glucose,hazardous materials waste technician,cont (FreeStyle Harjinder 3 [place]) #1 ea 11/26/24 [Rx Confirmed 12/02/24] alcohol swabs 1 pad topical QDAY #200 ea 11/30/24 [Rx Confirmed 12/02/24] aspirin 81 mg tablet,delayed release 81 mg PO DAILY #30 tabs 11/30/24 [Rx Confirmed 12/02/24] blood sugar diagnostic (Blood Glucose Test strips) #50 ea 11/30/24 [Rx Confirmed 12/02/24] insulin glargine 100 unit/mL (3 mL) subcutaneous pen (Lantus Solostar U-100 Insulin) 16 unit (0.16 mL) subcut BID #15 mL 11/30/24 [Rx Confirmed 12/02/24] lancets 28 gauge (Comfort EZ Lancets) #100 ea 11/30/24 [Rx Confirmed 12/02/24] losartan 50 mg tablet 50 mg PO QDAY #30 tabs 11/30/24 [Rx Confirmed 12/02/24] pen needle, diabetic 32 gauge x 5/32 (1st Tier Unifine Pentips) #100 ea 11/30/24 [Rx Confirmed 12/02/24] MA Intake Visit Data Collection New Patient or Established: Established Patient (seen at [facility] within 3 years) Seen by Clinical Staff ONLY (RN/MA): No Pain Present Currently: No Pain scale:: 0 PCP or OBGYN visit in last 3 months: No Smoking Status Smoking Status: Never smoker Immunization / Flu Flu Vaccine in the Last 12 Months: No Flu Vaccine Exclusion Criteria: No Exclusion Criteria Past Medical History Past Medical History NEUROLOGIC: Positive Head Trauma; Negative Neurological Disorders CARDIAC: Positive Cardiac Disorders and Hypertension; Negative Congestive Heart Failure RESPIRATORY: Positive Asthma; Negative Chronic Obstructive Pulmonary Disease (COPD) GASTROINTESTINAL: Negative Gastrointestinal Disorders GENITOURINARY: Negative Genitourinary Disorders or Renal Disease REPRODUCTIVE: Positive Previous Pregnancies MUSCULOSKELETAL: Positive Arthritis and Osteoporosis ENT: Positive Ear Infection and Head Trauma ENDOCRINE: Positive Endocrine Disorders and Diabetes Mellitus Type 2; Negative Diabetes Mellitus Type 1 HEMATOLOGIC: Positive Blood Disorders and Anemia OTHER HISTORY: Positive Hospitalization, Anesthesia Reactions and Chicken Pox; Negative Autoimmune Disease, Down Syndrome, Developmental Delay, Shingles, Falls, Blood Transfusions, Organ Transplant or Cancer Surgical History SURGICAL: Positive Hysterectomy; Negative Organ Transplant Social History SMOKING STATUS: Smoking status: Never smoker ALCOHOL: Alcohol Intake: Never HOUSING: Housing: House LIVES WITH: Lives With: Family Patient Portal Questionaires Social History Living Situation History Housing: House Tobacco History Smoking Status: Never smoker Alcohol History Alcohol Intake: Never Review of Systems Report any current symptoms Only answer those that you have currently: Past Medical History Past Medical History Have you ever been diagnosed with any of the following: Neurological Problems Head Trauma: Yes Cardiology Problems Congestive Heart Failure: No Hypertension: Yes Respiratory Problems Chronic Obstructive Pulmonary Disease (COPD): No Asthma: Yes Genital/Urinary Problems Renal Disease: No Reproductive Problems Previous Pregnancies: Yes Musculoskeletal Problems Arthritis: Yes Osteoporosis: Yes Head,Eye,Nose,Throat Problems Chronic Ear Infections: Yes Endocrine Problems Diabetes Mellitus Type 1: No Diabetes Mellitus Type 2: Yes Blood Problems Anemia: Yes Other Problems Hospitalization: Yes Autoimmune Disease: No Down Syndrome: No Developmental Delay: No Shingles: No Falls: No Blood Transfusions: No Anesthesia Reactions: Yes Organ Transplant: No Chicken Pox: Yes Cancer: No Surgical History Hysterectomy: Yes History of Present Illness HPI Narrative Patient is a 59-year-old female with a past medical history of hypertension, type II DM, who was recently discharged from hospital following a diagnosis of TIA. He was sent home on aspirin, Plavix and statin for TIA as well as insulin glargine and Jardiance for diabetes mellitus, continued amlodipine and lisinopril for hypertension. The patient reported her symptoms of resolved, she still cannot see clearly from her left eye continues to have headaches. The patient is here to establish care and get referrals to neurology, cardiology and ophthalmology. The patient was pending an outpatient echocardiogram which was ordered. The patient had not picked up her medications yet she only has access to Plavix, but reported she will drive to the pharmacy today and get her rest of the medications. Strict compliance with medications was emphasized. The patient demonstrated understanding. 11/30/2024, patient is here to follow-up post hospitalization, she was admitted with strokelike symptoms, found to have TIA, was noted to have hypertensive urgency on admission. Patient has reported that she has multiple prescriptions from different providers showing up on her medication list on [employer]. We went over the medications and discussed the plan to reach out to healthcare facility on the [facility], requesting them to discontinue duplicate med ications. Patient previously was taking lisinopril 5 mg daily, on admission to the hospital was noted to be hypertensive blood pressure in the 170s, lisinopril was increased to 40 mg on discharge, patient also prescribed insulin Tresiba 22 units at night and Humalog lispro Premeal, but patient has trouble with medication compliance, reported she did not like the Tresiba last time she was prescribed. Wants to go back to Lantus. As part of shared decision making, recommended insulin Lantus 16 units twice daily to simplify her insulin regimen. Also complaining of dry cough, likely secondary to lisinopril, will switch lisinopril to losartan 50 mg daily. Continue aspirin and statin. Recommended take home blood pressure and blood glucose readings, will follow-up with patient in 1 week. Patient still pending echocardiogram, cardiology referral, which were ordered last visit. Review of Systems Review of Systems Systems Reviewed: All systems reviewed, normal except as documented Objective/Exam Narrative Physical exam: General: AOx3, cooperative Skin: Intact, no cyanosis or edema noted. HEENT: Atraumatic/normocephalic, DULCE, neck supple Heart: RRR, S1 and S2 without clicks or murmurs Lungs: Clear on auscultation bilaterally, no difficulty breathing Abdomen: Soft, nontender. Bowel sounds present . Vascular: Peripheral pulses palpable Neuro: No focal neurological deficits noted. Assessment & Plan Diagnosis / Problem List (1) Type 2 diabetes mellitus: Status: Acute Assessment & Plan: Poor glycemic control, A1c 11.5%, noncompliant with insulin regimen, during this visit we attempted to simplify patient's home medication regimen, instead of basal bolus regimen will increase basal insulin and split to twice daily dosing. Stressed medication compliance, and aggressive risk factor modification given recent strokelike symptoms/TIA. Plan: ? Insulin Lantus 16 units twice daily ? Daily home blood glucose monitoring, monitor for hypoglycemia. (2) Hypertension: Status: Acute Assessment & Plan: Patient previously was taking lisinopril 5 mg daily, on admission to the hospital was noted to be hypertensive blood pressure in the 170s, lisinopril was increased to 40 mg on discharge, Also complaining of dry cough, likely secondary to lisinopril, will switch lisinopril to losartan 50 mg daily. Continue aspirin and statin. Recommended take home blood pressure and blood glucose readings, will follow-up with patient in 1 week. Patient still pending echocardiogram, cardiology referral, which were ordered last visit. Plan: ? Losartan 50 mg daily (3) Stroke-like symptoms: Status: Acute Assessment & Plan: Patient admitted with strokelike symptoms, aphasia, no residual deficit, diagnos ed with TIA, no echocardiogram was done during hospital visit due to unavailability of manufacturing engineering technologist. Plan: ? Pending outpatient echocardiogram, was ordered during previous visit ? Aggressive risk factor modification stressed, will change medication regimen for improved glycemic and hypertensive control ? Continue aspirin and statin ? Cardiology referral was ordered Plan Plan of care discussed with attending MD Gracy Amaya PGY [address] [facility] Level of Care Nursing/Assessment Patient Status: Established Patient Nursing Assessment/Reassessment: Medication Reconciliation, Update PMH in EMR and Vital Signs Coordination of Care: Education Complex Pt/Fam and Staff clarify orders Established Patient Charge Established Patient Point Assignment: 60 Established Patient Point Charge: EP Level 2 (40-75)
== END 2024-11-30 13:59 | disposition home or self-care (01) ==
LOC: HODAHC 13:20
PROVIDERS: Supervising Provider Student in an Organized Health Care Education/Training Program; Visit Provider Student in an Organized Health Care Education/Training Program
DX: E11.9 Type 2 diabetes mellitus without complications (principal); I10 Essential (primary) hypertension; Z79.4 Long term (current) use of insulin; Z91.199 Patient's noncompliance with other medical treatment and regimen due to unspecified reason; R47.01 Aphasia
CPT/HCPCS: 99212; G0463

== ENCOUNTER 2024-12-02 14:35 | Outpatient (AMB) | payer MEDICAID, SELFPAY ==
--- NOTE | 2024-12-02 14:37 | ACNOTE_ITS ---
Allergies/Meds Allergies & Medications Allergies ciprofloxacin Allergy (Severe, Verified 12/02/24 14:37) Hives Medication Reconciliation blood-glucose sensor (FreeStyle Harjinder 3 Plus Sensor device) #1 ea 11/26/24 [Rx Confirmed 12/02/24] blood-glucose,television receiver analyzer,cont (FreeStyle Harjinder 3 [place]) #1 ea 11/26/24 [Rx Confirmed 12/02/24] alcohol swabs 1 pad topical QDAY #200 ea 11/30/24 [Rx Confirmed 12/02/24] aspirin 81 mg tablet,delayed release 81 mg PO DAILY #30 tabs 11/30/24 [Rx Confirmed 12/02/24] blood sugar diagnostic (Blood Glucose Test strips) #50 ea 11/30/24 [Rx Confirmed 12/02/24] insulin glargine 100 unit/mL (3 mL) subcutaneous pen (Lantus Solostar U-100 Insulin) 16 unit (0.16 mL) subcut BID #15 mL 11/30/24 [Rx Confirmed 12/02/24] lancets 28 gauge (Comfort EZ Lancets) #100 ea 11/30/24 [Rx Confirmed 12/02/24] losartan 50 mg tablet 50 mg PO QDAY #30 tabs 11/30/24 [Rx Confirmed 12/02/24] pen needle, diabetic 32 gauge x 5/32 (1st Tier Unifine Pentips) #100 ea 11/30/24 [Rx Confirmed 12/02/24] MA Intake Visit Data Collection New Patient or Established: Established Patient (seen at [facility] within 3 years) Seen by Clinical Staff ONLY (RN/MA): No PCP or OBGYN visit in last 3 months: Yes Do You Feel Safe at Home: Yes Smoking Status Smoking Status: Never smoker For Televisit only Telemed Video/Phone Visit: Yes Verbal consent obtained for Telemed visit?: Yes Verbal Consent witness name: DANIEL Telemed Video/Phone visit w/Clinical Staff: 21-30 min Immunization / Flu Flu Vaccine in the Last 12 Months: Yes Flu Vaccine Exclusion Criteria: Already Received Past Medical History Past Medical History NEUROLOGIC: Positive Head Trauma; Negative Neurological Disorders CARDIAC: Positive Cardiac Disorders and Hypertension; Negative Congestive Heart Failure RESPIRATORY: Positive Asthma; Negative Chronic Obstructive Pulmonary Disease (COPD) GASTROINTESTINAL: Negative Gastrointestinal Disorders GENITOURINARY: Negative Genitourinary Disorders or Renal Disease REPRODUCTIVE: Positive Previous Pregnancies MUSCULOSKELETAL: Positive Arthritis and Osteoporosis ENT: Positive Ear Infection and Head Trauma ENDOCRINE: Positive Endocrine Disorders and Diabetes Mellitus Type 2; Negative Diabetes Mellitus Type 1 HEMATOLOGIC: Positive Blood Disorders and Anemia OTHER HISTORY: Positive Hospitalization, Anesthesia Reactions and Chicken Pox; Negative Autoimmune Disease, Down Syndrome, Developmental Delay, Shingles, Falls, Blood Transfusions, Organ Transplant or Cancer Surgical History SURGICAL: Positive Hysterectomy; Negative Organ Transplant Social History SMOKING STATUS: Smoking status: Never smoker ALCOHOL: Alcohol Intake: Never HOUSING: Housing: House LIVES WITH: Lives With: Family Patient Portal Questionaires Social History Living Situation History Housing: House Tobacco History Smoking Status: Never smoker Alcohol History Alcohol Intake: Never Domestic Abuse History Do You Feel Safe at Home: Yes Review of Systems Report any current symptoms Only answer those that you have currently: Past Medical History Past Medical History Have you ever been diagnosed with any of the following: Neurological Problems Head Trauma: Yes Cardiology Problems Congestive Heart Failure: No Hypertension: Yes Respiratory Problems Chronic Obstructive Pulmonary Disease (COPD): No Asthma: Yes Genital/Urinary Problems Renal Disease: No Reproductive Problems Previous Pregnancies: Yes Musculoskeletal Problems Arthritis: Yes Osteoporosis: Yes Head,Eye,Nose,Throat Problems Chronic Ear Infections: Yes Endocrine Problems Diabetes Mellitus Type 1: No Diabetes Mellitus Type 2: Yes Blood Problems Anemia: Yes Other Problems Hospitalization: Yes Autoimmune Disease: No Down Syndrome: No Developmental Delay: No Shingles: No Falls: No Blood Transfusions: No Anesthesia Reactions: Yes Organ Transplant: No Chicken Pox: Yes Cancer: No Surgical History Hysterectomy: Yes History of Present Illness HPI Narrative Patient is a 59-year-old female with a past medical history of hypertension, type II DM, who was recently discharged from hospital following a diagnosis of TIA. He was sent home on aspirin, Plavix and statin for TIA as well as insulin glargine and Jardiance for diabetes mellitus, continued amlodipine and lisinopril for hypertension. The patient reported her symptoms of resolved, she still cannot see clearly from her left eye continues to have headaches. The patient is here to establish care and get referrals to neurology, cardiology and ophthalmology. The patient was pending an outpatient echocardiogram which was ordered. The patient had not picked up her medications yet she only has access to Plavix, but reported she will drive to the pharmacy today and get her rest of the medications. Strict compliance with medications was emphasized. The patient demonstrated understanding. 11/30/2024, patient is here to follow-up post hospitalization, she was admitted with strokelike symptoms, found to have TIA, was noted to have hypertensive urgency on admission. Patient has reported that she has multiple prescriptions from different providers showing up on her medication list on [employer] dave. We went over the medications and discussed the plan to reach out to healthcare facility on the [facility], requesting them to discontinue duplicate medications. Patient previously was taking lisinopril 5 mg daily, on admission to the hospital was noted to be hypertensive blood pressure in the 170s, lisinopril was increased to 40 mg on discharge, patient also prescribed insulin Tresiba 22 units at night and Humalog lispro Premeal, but patient has trouble with medication compliance, reported she did not like the Tresiba last time she was prescribed. Wants to go back to Lantus. As part of shared decision making, recommended insulin Lantus 16 units twice daily to simplify her insulin regimen. Also complaining of dry cough, likely secondary to lisinopril, will switch lisinopril to losartan 50 mg daily. Continue aspirin and statin. Recommended take home blood pressure and blood glucose readings, will follow-up with patient in 1 week. Patient still pending echocardiogram, cardiology referral, which were ordered last visit. 12/02/2024, telehealth visit was done, as patient called the office asking for clarification about medication prescriptions. Also reported feeling more weak and short of breath. Spoke with the patient, reported that she took home blood pressure measurement which was BP was 77/50, reported she tried to go to the kitchen this morning and she was feeling weak. She was concerned about a medication adverse event, patient had picked up a new prescription for losartan 50 mg, she was wondering her previous prescription for lisinopril used to be 5 mg, went over patient's medical records and reported that lisinopril was increased to 40 mg during her hospital stay as she had a systolic blood pressure of 170 and strokelike symptoms. We went over her medication list to make sure no double dosing had taken place, patient reported feeling fine after drinking pickle juice. Patient did repeat blood pressure 10 minutes later, noted 101/70. The patient felt reassured, reported feeling good, encouraged the patient to continue drinking adequate fluids. Reported the patient to check her blood pressure tomorrow morning and take half pill of losartan if systolic blood pressure is more than 120. She was also confused confused about her insulin dosage, went over new insulin prescription, patient reported she had called [facility] and told them to stop refilling the old medications. The patient had picked up refills for lisinopril 5 mg. Will see the patient in clinic for an earlier appointment, recommended patient to note down blood glucose and blood pressure readings. Encouraged the patient to go to the emergency room if she has any new symptoms like dizziness, concern for chest pain or shortness of breath. Patient demonstrated understanding and stated that she would like to stay at home as she feels good now. Patient denied chest pain, shortness of breath, falls, palpitations nausea vomiting or diarrhea. Review of Systems Review of Systems Systems Reviewed: All systems reviewed, normal except as documented Objective/Exam Narrative Physical exam: Not applicable?telehealth visit Assessment & Plan Diagnosis / Problem List (1) Type 2 diabetes mellitus: Status: Acute Assessment & Plan: Poor glycemic control, A1c 11.5%, noncompliant with insulin regimen, during this visit we attempted to simplify patient's home medication regimen, instead of basal bolus regimen will increase basal insulin and split to twice daily dosing. Stressed medication compliance, and aggressive risk factor modification given recent strokelike symptoms/TIA. Plan: ? Insulin Lantus 16 units twice daily ? Daily home blood glucose monitoring, monitor for hypoglycemia. (2) Hypertension: Status: Acute Assessment & Plan: Patient previously was taking lisinopril 5 mg daily, on admission to the hospital was noted to be hypertensive blood pressure in the 170s, lisinopril was increased to 40 mg on discharge, Also complaining of dry cough, likely secondary to lisinopril, will switch lisinopril to losartan 50 mg daily. Continue aspirin and statin. Recommended take home blood pressure and blood glucose readings, will follow-up with patient in 1 week. Patient still pending echocardiogram, cardiology referral, which were ordered last visit. Plan: ? Patient reported episode of hypotension after taking losartan 50 mg, recommended her to take per oral fluids, blood pressure later improved on repeat BP check. ? Advised to take half tablet of losartan 50 mg, after checking blood pressure in the morning if SBP more than 120. ? Encouraged patient to seek maintain blood pressure and blood glucose diary., Will see patient early next week. (3) Stroke-like symptoms: Status: Acute Assessment & Plan: Patient admitted with strokelike symptoms, aphasia, no residual deficit, diagnosed with TIA, no echocardiogram was done during hospital visit due to unavailability of technical marketing consultant. Plan: ? Pending outpatient echocardiogram, was ordered during previous visit ? Aggressive risk factor modification stressed, will change medication regimen for improved glycemic and hypertensive control ? Continue aspirin and statin ? Cardiology referral was ordered Plan Plan of care discussed with attending MD Gracy Amaya PGY 3 Office Procedures [facility] Level of Care Nursing/Assessment Patient Status: Established Patient Nursing Assessment/Reassessment: Medication Reconciliation and Update PMH in EMR Coordination of Care: Complex Care/Chronic Disease 5 or more, Education Simp Pt/Fam and Staff clarify orders Established Patient Charge Established Patient Point Assignment: 75 Telehealth Telemed Phone/Video with patient at home & ,PA,FUNCTIONAL CONSULTANT: Yes
== END 2024-12-02 15:02 | disposition home or self-care (01) ==
LOC: HODAHC 14:35
PROVIDERS: PCP Student in an Organized Health Care Education/Training Program; Referring Provider Student in an Organized Health Care Education/Training Program; Supervising Provider Internal Medicine; Visit Provider Student in an Organized Health Care Education/Training Program
DX: E11.9 Type 2 diabetes mellitus without complications (principal); Z79.4 Long term (current) use of insulin; Z91.148 Patient's other noncompliance with medication regimen for other reason; I10 Essential (primary) hypertension; R47.01 Aphasia
CPT/HCPCS: 99212; G0463

== ENCOUNTER 2025-01-16 21:14 | Observation (INO) | payer MEDICAID, SELFPAY ==
[2025-01-16 21:14] VITALS: BMI 33.0
[2025-01-16 22:07] VITALS: BP 167/88; PULSE 81; PULSE 83; RESP 20; RESP 99; TEMP 37; O2SAT 97
--- NOTE | 2025-01-16 22:07 | EKG_ITS ---
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: : [id number] Requested By: Prashant Mcgrath Order Number: [id number] Reading MD: Prashant Mcgrath Measurements Intervals [place] Rate: 74 P: 5 PA: 157 QRS: -36 QRSD: 88 T: 52 QT: 394 QTc: 440 Interpretive Statements SINUS RHYTHM LEFT AXIS DEVIATION [QRS AXIS < -30] LOW QRS VOLTAGE IN PRECORDIAL LEADS [QRS DEFLECTION < 1.0 mV IN CHEST LEADS] ANTEROSEPTAL MYOCARDIAL INFARCTION , OF INDETERMINATE AGE [40+ ms Q WAVE IN V1-V4] Compared to ECG 11/25/2024 16:06:09 Left-axis deviation now present Low QRS voltage now present Myocardial infarct finding still present /store/S0/[id number]/ecg/[id number].pdf
--- NOTE | 2025-01-16 22:07 | PD.EDRME ---
Rapid Medical Screening Exam RME Arrival date/time: 01/16/25 21:14 This is a case of 59-year-old female with history of hypertension and CVA came in in the emergency room due to slurring of speech facial numbness 45 minutes prior to arrival in the emergency room patient also have high blood pressure at home no chest pain no shortness of breath no headache no dizziness code stroke was called informed charge nurse for bed placement Chief Complaint: General Adult/Misc Complain Time Seen by Provider: 01/16/25 22:06
--- NOTE | 2025-01-16 22:08 | EDNOTE_ITS ---
ED General RME/HPI General Chief complaint: General Adult/Misc Complain Stated complaint: HIGH BP 191/110 Time Seen by Provider: 01/16/25 22:06 Arrival date/time: 01/16/25 21:14 RME / HPI RME / HPI narrative: Dr. Mcintosh?s Main ED Evaluation: 59yo female with history of reported CVA without residual deficits presents with LKWT ?2030 in which patient had mild dysarthria per daughter. Upon presentation to the ED at 2100, patient noted period of expressive aphasia and left upper/lower extremity paresthesias without motor weakness. No headache, nausea, or vomiting. Patient had elevated blood pressure of 190/110 at home. Patient has been recently taken off losartan and placed on lisinopril. She takes aspirin for previous CVA. Related Data Previous Rx's ?Medication ?Instructions ?Recorded blood-glucose sensor (FreeStyle #1 ea 11/26/24 Harjinder 3 Plus Sensor device) blood-glucose,communications intern,cont #1 ea 11/26/24 (FreeStyle Harjinder 3 Fox) alcohol swabs 1 pad topical QDAY #200 ea 0 11/30/24 aspirin 81 mg tablet,delayed 81 mg PO DAILY #30 tabs 0 11/30/24 release blood sugar diagnostic (Blood #50 ea 11/30/24 Glucose Test strips) insulin glargine 100 unit/mL (3 16 unit (0.16 mL) subc ut BID #15 mL 11/30/24 mL) subcutaneous pen (Lantus Solostar U-100 Insulin) lancets 28 gauge (Comfort EZ #100 ea 11/30/24 Lancets) losartan 50 mg tablet 50 mg PO QDAY #30 tabs 11/30 pen needle, diabetic 32 gauge x #100 ea 11/30/2432 (1st Tier Unifine Pentips) Allergies Allergy/AdvReac Type Severity Reaction Status Date / Time ciprofloxacin Allergy Severe Hives Verified 12/02/24 14:37 Review of Systems Review of Systems Systems Reviewed: All systems reviewed, normal except as documented ED Exam Narrative Physical exam: GENERAL APPEARANCE: alert and oriented x 4, well-developed, well-nourished, no acute distress VITALS: All vitals were reviewed and the pulse ox is 97% on room air, which is normal according to my interpretation. HEENT: Normocephalic, atraumatic; pupils equal, round, reactive to light; EOMI; mucous membranes pink, moist; oropharynx clear NECK: Supple LUNGS: CTABL; no wheezes, no rales, no rhonchi HEART: Regular rate, regular rhythm; normal S1, S2; no murmurs ABDOMEN: non distended; soft, no tenderness EXTREMITIES: atraumatic; no edema NEUROLOGIC: awake; alert and oriented x4; GCS 15; cranial nerves II-XII grossly intact; no facial droop, no dysarthria, no lateralizing findings, no focal sensory or motor deficits, NIH 0 PSYCHIATRIC: appropriate mood and affect SKIN: warm, dry, normal color; no rashes Course Course Course Narrative: 2205: Stroke alert initiated. Quality Measures none Orders Category Date Time Status Admit to Inpatient Status Routine Admission 01/17/25 00:00 Active Patient Condition Routine Admission 01/17/25 00:00 Ordered Bedside Blood Glucose NOW Care 01/16/25 22:07 Active District Operations Manager NOW Care 01/16/25 22:07 Active Continuous Pulse Oximetry NOW Care 01/16/25 22:07 Completed EKG (ED ONLY) *Do not use* NOW Care 01/16/25 22:07 Active Flu & Pneumonia Vaccine Screen ONCE Care 01/17/25 00:06 Active In and Out Catheter NEEDED Care 01/16/25 22:07 Active Insert IV NOW Care 01/16/25 22:07 Active MRI Screening NOW Care 01/17/25 00:24 Active NIH Stroke Scale now Care 01/16/25 22:07 Active NPO NOW Care 01/16/25 22:07 Active Neuro Check Q4H Care 01/17/25 00:00 Active Notify provider NEEDED Care 01/17/25 00:00 Active Nurse Swallow Screen x1 Care 01/16/25 22:07 Active Sequential Compression Device QSHIFT Care 01/17/25 00:06 Active Swallow Evaluation NEEDED Care 01/17/25 00:17 Active Consult to Neurology / Tele-Neurology Routine Cons 01/16/25 22:07 Active Consult to Neurology / Tele-Neurology Stat Cons 01/17/25 00:14 Active Referral Physical Therapy Stat Cons 01/17/25 00:14 Active Diet Low Sodium (2gm) Diet 01/17/25 Breakfast Active CA echo doppler complete Stat Exams 01/17/25 00:[address] angio stroke protocol Stat Exams 01/16/25 22:[address] stroke protocol Stat Exams 01/16/25 22:07 Completed EKG (ED Only) Stat Exams 01/16/25 22:07 Draft MR stroke protocol brain wo con with MRA head and neck Exams 01/17/25 Ordered Stat XR chest 1V portable Stat Exams 01/16/25 22:07 Completed Beta HCG,Quantitative Stat Lab 01/16/25 22:09 Completed CBC AM DRAW Lab 01/17/25 05:00 Ordered CBC AM DRAW Lab 01/18/25 05:00 Ordered CBC AM DRAW Lab 01/19/25 05:00 Ordered CBC Stat Lab 01/16/25 22:09 Completed Comprehensive Metabolic Panel AM DRAW Lab 01/17/25 05:00 Ordered Comprehensive Metabolic Panel AM DRAW Lab 01/18/25 05:00 Ordered Comprehensive Metabolic Panel AM DRAW Lab 01/19/25 05:00 Ordered Comprehensive Metabolic Panel Stat Lab 01/16/25 22:09 Completed Drug Screen,Urine Stat Lab 01/16/25 22:07 Ordered HCG Titer if Positive Stat Lab 01/16/25 22:09 Completed Lipid Panel AM DRAW Lab 01/17/25 05:00 Ordered Magnesium AM DRAW Lab 01/17/25 05:00 Ordered Magnesium Stat Lab 01/16/25 22:09 Completed Partial Thromboplastin Time Stat Lab 01/16/25 22:09 Completed Phosphorous AM DRAW Lab 01/17/25 05:00 Ordered Prothrombin Time with INR Stat Lab 01/16/25 22:09 Completed Thyroid Stimulating Hormone AM DRAW Lab 01/17/25 05:00 Ordered Troponin I Stat Lab 01/16/25 22:09 Completed Urinalysis, C/S if Indicated Stat Lab 01/16/25 22:07 Ordered Acetaminophen Tab [Tylenol Tab] Med 01/17/25 00:00 Active 650 mg PO Q6H PRN Aspirin Med 01/17/25 00:15 Active 81 mg PO QDAY Atorvastatin Calcium [Lipitor] Med 01/17/25 21:00 Active 80 mg PO HS Clopidogrel [Plavix] Med 01/16/25 23:06 Discontinued 300 mg PO X1 ONE Clopidogrel [Plavix] Med 01/17/25 00:30 Active 75 mg PO X1 Insulin Regular Med 01/16/25 23:17 Discontinued 6 unit SC X1 ONE Labetalol IV [Trandate IV] Med 01/16/25 22:07 Active 10 mg IVP Q15M PRN Ondansetron Inj [Zofran Inj] Med 01/16/25 22:07 Active 4 mg IVP Q4HR PRN Ondansetron Inj [Zofran Inj] Med 01/17/25 00:00 Pending 4 mg IVP Q6H PRN Senna [Senokot] Med 01/17/25 00:00 Active 1 tab PO QDAY PRN Code Status Routine Oth 01/17/25 00:00 Ordered Oxygen Delivery NOW RT 01/16/25 22:07 Active Vital Signs Vital signs: Vital Signs Temperature 98.6 F 01/16/25 22:07 Pulse Rate 81 01/16/25 22:07 Respiratory Rate 20 01/16/25 22:07 Blood Pressure 167/88 H 01/16/25 22:07 Pulse Oximetry (%) 97 01/16/25 22:07 Oxygen Delivery Method Room Air 01/16/25 22:07 Critical Care Time Critical Care Time Critical Care Time: Yes Total Critical Care Time (min.): 35 Attestation: The high probability of sudden, clinically significant deterioration in the patient?s condition required the highest level of my preparedness to intervene urgently. The services I provided to this patient were to treat and/or prevent clinically significant deterioration. Services included the following: chart data review, reviewing nursing notes and/or old charts, documentation time, regional sales consultant collaboration regarding findings and treatment options, medication orders and management, direct patient care, vital sign assessments and ordering, interpreting and reviewing diagnostic studies and lab tests. Aggregate critical care time includes only time during which I was engaged in work directly related to the patient?s care, as described above, whether at bedside or elsewhere in the Emergency Department. It did not include time spent performing other reported procedures or the services of residents, students, nurses or physician assistants. Discharge Plan Plan Patient Disposition: Admit Acute Care w/in Hospital Prescriptions/Referrals Prescriptions/Med Rec: No Action losartan 50 mg tablet 50 mg PO QDAY Qty: 30 3RF (DME) pen needle, diabetic [1st Tier Unifine Pentips] 32 gauge x 5/32 needle See Rx Instructions .Route Qty: 100 3RF Rx Instructions: As directed alcohol swabs Pads, Medicated 1 pad topical QDAY Qty: 200 2RF (DME) Blood Glucose Test Strip See Rx Instructions .Route Qty: 50 3RF Rx Instructions: As directed (DME) lancets [Comfort EZ Lancets] 28 gauge misc See Rx Instructions .Route Qty: 100 3RF Rx Instructions: As directed insulin glargine [Lantus Solostar U-100 Insulin] 100 unit/mL (3 mL) insulin pen 16 unit subcut BID Qty: 15 3RF aspirin 81 mg tablet,delayed release (DR/EC) 81 mg PO DAILY Qty: 30 3RF (DME) FreeStyle Harjinder 3 Fox Misc See Rx Instructions .Route Qty: 1 0RF Rx Instructions: As directed (DME) FreeStyle Harjinder 3 Plus Sensor Device See Rx Instructions .Route Qty: 1 2RF Rx Instructions: As directed Referrals: Temporary Provider,ED [Physician, Emergency Medicine] - In 1 week Problem List Clinical Impression: TIA (transient ischemic attack) Patient/Caregiver Discharge Instructions Print Language: Canadian Stand Alone Forms: Belinda Award Info., Patient Portal Info Letter MDM Narrative MDM hospital course (for use when minimal MDM required): Scribe Attestation: 01/16/25 - Nicole Renteria am scribing for and in the presence of Dr. Mcintosh. 59yo female with history of reported CVA without residual deficits presents with LKWT ?2030 in which patient had mild dysarthria per daughter. Upon presentation to the ED at 2100, patient noted period of expressive aphasia and left upper/lower extremity paresthesias without motor weakness. Please see PE findings. Lab markers demonstrated normal WBC count, no anemia or thrombocytopenia. Chemistries showed an elevated blood sugar 325, in which patient received regular insulin. Patient immediately triaged to stroke protocol and teleneurologist consulted. Referred for CT head and CTA head/neck, which were unremarkable. Upon return from radiology, patient's symptoms have resolved, GCS 15 and NIHSS 0. Patient is mildly hypertensive. Teleneurology consulted and recommends permissive hypertension of up to 200 systolically without active intervention. Patient loaded with Plavix and admitted for TIA work-up. 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 Labs Labs: interpreted by me Imaging Imaging interpretation: interpreted by me Imaging Interpretation(s): [facility] Signed Patient: ZAINA ZEPEDA [facility]. Record#: [id number] Birthdate: 1965 Age/Sex: 59 / F Location: [facility]X Attending Dr: Ordering Physician: Prashant Green Date of Service: 01/16/25 Procedure(s): CT stroke protocol Accession Number(s): [id number] cc: Syed Cleaning MD; Prashant Green~ Examination: CT brain head without contrast. 2-D sagittal coronal reconstructions Date and time of exam: January 16, 2025, 10:20 p.m. INDICATIONS: Stroke alert, onset focal neurologic deficit including slurred speech beginning 45 minutes ago CTDI: vol (mGy): 51.8 DLP: (mGycm): 980 Technique: Multiple CT axial sections of the brain have been obtained, 5 mm slice thickness. Contrast has not been administered. 2-D sagittal, coronal reconstructions have been obtained Low dose protocols were performed. One or more of the following dose reduction techniques were used; automated exposure control, adjustment of the mA and/or KV according to patient size, use of iterative reconstruction technique. Findings: No significant ventricular enlargement. Intra-axial or extra-axial hemorrhage density is not seen. No mass effect or midline shift Basal cisterns are not remarkable. Fourth ventricle is midline. Cranial vault intact. Impression: Negative for acute hemorrhage, mass effect or midline shift Dictated By: Syed Cleaning MD Signed By: <Electronically signed by Syed Cleaning MD in OV> 01/16/252228 [facility] Signed Patient: ZAINA ZEPEDA [facility]. Record#: [id number] Birthdate: 1965 Age/Sex: 59 / F Location: [facility]X Attending Dr: Ordering Physician: Prashant Green Date of Service: 01/16/25 Procedure(s): CT angio stroke protocol Accession Number(s): [id number] cc: Syed Cleaning MD; Prashant Green~ Examination: CTA carotids with intravenous contrast CTA brain, head with intravenous contrast. 2-D sagittal, coronal reconstructions. 3-D reconstructions. Exam date and time: January 16, 2025, 10:27 p.m. INDICATIONS: Stroke alert, onset focal neurologic deficit today CTDI: vol (mGy) 11.7 DLP: (mGycm) 446 Technique: Multiple CTA axial brain, head carotid images post intravenous contrast injection 75 cc, [id number]. 2-D sagittal, coronal reconstructions. 3-D reconstructions, 3-D post processing including vascular maximum intensity projection images. Low dose protocols were performed. One or more of the following dose reduction techniques were used; automated exposure control, adjustment of the mA and/or KV according to patient size, use of iterative reconstruction technique. Findings: No significant common carotid carotid bifurcation or internal carotid artery stenoses Dominant right vertebral artery in the neck with no critical stenoses Intracranial vertebral arteries basilar artery and posterior cerebral branches fill with no large vessel occlusions M1 segments middle cerebral arteries middle cerebral artery trifurcation vessels anterior cerebral arteries fill with no large vessel occlusions IMPRESSION: No significant neck arterial stenoses No cerebral large vessel arterial occlusions or thrombus Dictated By: Syed Cleaning MD Signed By: <Electronically signed by Syed Cleaning MD in OV> 01/16/25 2247 [facility] Signed Patient: ZAINA ZEPEDA [facility]. Record#: [id number] Birthdate: 1965 Age/Sex: 59 / F Location: [facility]X Attending Dr: Ordering Physician: Prashant Green Date of Service: 01/16/25 Procedure(s): XR chest 1V portable Accession Number(s): [id number] cc: Syed Cleaning MD; Prashant Green~ EXAMINATION: AP chest single view TECHNIQUE: AP portable upright chest single view Date and time: January 16, 2025, 10:34 p.m. INDICATIONS: Stroke alert today FINDINGS: Normal heart size No aspiration pneumonia. Moderate osteopenia IMPRESSION: No aspiration pneumonia Dictated By: Syed Cleaning MD Signed By: <Electronically signed by Syed Cleaning MD in OV> 01/16/25 1734 Medication Administration(s) Medication Administration History Acetaminophen (Acetaminophen 325 Mg Tablet) 650 mg PO Q6H PRN PRN Reason: Fever >100.4 Stop: 02/16/25 00:00 Aspirin (Aspirin 325 Mg Tablet) 81 mg PO QDAY PEDRO Stop: 02/16/25 00:14 Atorvastatin Calcium (Atorvastatin Calcium 20 Mg Tablet) 80 mg PO HS PEDRO Stop: 02/16/25 20:59 Clopidogrel Bisulfate (Clopidogrel Bisulfate 75 Mg Tablet) 75 mg PO X1 PEDRO Stop: 02/16/25 00:29 Labetalol HCl (Labetalol Inj 5 Mg/Ml Vial 20 Ml) 10 mg IVP Q15M PRN PRN Reason: HYPER Ondansetron HCl (Ondansetron Inj 2 Mg/Ml Inj 2 Ml) 4 mg IVP Q4HR PRN PRN Reason: NAUSEA OR VOMITING Stop: 02/15/25 22:06 Ondansetron HCl (Ondansetron Inj 2 Mg/Ml Inj 2 Ml) 4 mg IVP Q6H PRN; Protocol PRN Reason: NAUSEA OR VOMITING Stop: 02/16/25 00:00 Sennosides (Senna Tablet) 1 tab PO QDAY PRN; Protocol PRN Reason: constipation Stop: 02/16/25 00:00 Discontinued Medications Clopidogrel Bisulfate (Clopidogrel Bisulfate 75 Mg Tablet) 300 mg PO X1 ONE Stop: 01/16/25 23:07 Last Admin: 01/16/25 23:26 Dose: 300 mg Documented By: BJORNOR Insulin Human Regular (Insulin Hum Regular 1 Unit/0.01 Ml (Per Unit)) 6 unit SC X1 ONE Stop: 01/16/25 23:18 Last Admin: 01/17/25 00:13 Dose: Not Given Documented By: SE Non-Admin Reason: Cancelled by Provider see above Consultations/Discussions re: Management Consult #1: Date/time: 01/16/25 10:53 pm Physician, specialty, service, details: Discussed case with Dr. Gannon from teleneurology regarding consultation. Discussed patients ED course, exam findings, labs, and radiology results. Recommends administering Plavix and admitting for further stroke work-up. Consult #2: Date/time: 01/16/25 11:15 pm Physician, specialty, service, details: Discussed case with the resident physician, attending Dr. Contreras from Hospitalist service regarding admission. Discussed patients ED course, exam findings, labs, and radiology results. The Hospitalist agrees to accept the patient for admission. Diagnosis Differential Diagnosis ED Complaint MDM: CVA, TIA, medication noncompliance, hypertensive urgency
--- NOTE | 2025-01-16 22:09 | PC.NURSE ---
Case Consult 01/16/2025 22:09:10 [facility] Case # [id number] has been created.
--- NOTE | 2025-01-16 22:13 | PC.NURSE ---
neuro see pt
[2025-01-16 22:23] LABS: Basophils # (Auto) 0.0 Thou/mm3 (0.0-0.2); Basophils % (Auto) 1 % (0-2.5); Eosinophils # (Auto) 0.2 Thou/mm3 (0.0-0.5); Eosinophils % (Auto) 2 % (0-10); Hematocrit 38.8 % (36.0-46.0); Hemoglobin 13.6 g/dL (12.0-16.0); Immature Granulocytes Auto 0.01 Thou/mm3 (0.00-0.00); Lymphocytes # (Auto) 2.4 Thou/mm3 (1.0-4.8); Lymphocytes % (Auto) 37 % (10-50); Mean Corpuscular HGB Conc 35.1 g/dl (31.0-37.0); Mean Corpuscular Hemoglobin 29.2 pg (25.0-35.0); Mean Corpuscular Volume 83 fL (80-100); Monocytes # (Auto) 0.3 Thou/mm3 (0.0-0.8); Monocytes % (Auto) 4 % (0-12); Neutrophils # (Auto) 3.7 Thou/mm3 (1.8-7.7); Neutrophils % (Auto) 56 % (37-80); Nucleated Red Blood Cell # 0.00 Thou/mm3 (0.00-0.00); Nucleated Red Blood Cell % 0 /100 WBC (0); Platelet Count 374 Thou/mm3 (140-440); RDW Standard Deviation 38.5 fL (36.4-46.3); Red Blood Count 4.66 Miln/mm3 (4.00-5.20); White Blood Count 6.6 Thou/mm3 (3.6-11.0)
[2025-01-16 22:43] LABS: Alanine Aminotransferase 16 U/L (10-49); Albumin, Serum 4.4 gm/dL (3.5-5.0); Albumin/Globulin Ratio 1.5 (1.2-2.2); Alkaline Phosphatase 115 U/L (46-116); Anion Gap 11 (7-16); Aspartate Amino Transferase 14 U/L (0-34); BUN/Creatinine Ratio 21 Ratio (12-20); Bilirubin,Total 0.4 mg/dL (0.3-1.2); Blood Urea Nitrogen 21 mg/dL (9-23); Calcium 10.1 mg/dL (8.3-10.6); Calcium (Corrected) 10.1 mg/dL (8.5-10.1); Carbon Dioxide 23.9 mMol/L (20.0-31.0); Chloride 103 mMol/L (98-107); Creatinine (Component) 1.0 mg/dL (0.6-1.3); Estimated Creatinine Clearance 59.2 mL/min (>60); Globulin 3.0 gm/dL (2.3-3.5); Glucose 325 mg/dL (74-106); INR 0.9 (0.9-1.3); Magnesium 1.7 mg/dL (1.6-2.6); Osmolality,Calculated 291 (275-295); Partial Thromboplastin Time 26.4 Seconds (22.0-36.0); Potassium 4.0 mMol/L (3.4-5.1); Prothrombin Time 10.1 Seconds (9.0-12.2); Sodium 138 mMol/L (136-145); Total Protein 7.4 gm/dL (5.7-8.2); Troponin I < 0.002 ng/mL (0.0-0.045); eGFR > 60 See Note
[2025-01-16 23:23] LABS: HCG Titer if Positive Positive
[2025-01-16] MEDS: CLOPIDOGREL BISULFATE 75 MG TABLET 300 MG PO (23:26)
[2025-01-16 23:51] LABS: Beta HCG,Quantitative 6 mIU/mL (<5.0)
[2025-01-17] VITALS (8 sets, daily range): BP systolic 125–159; BP diastolic 75–88; PULSE 64–701; RESP 14–98; TEMP 36.1–36.4; O2SAT 96–98; BMI 33.9
--- NOTE | 2025-01-17 | XR_ITS ---
Examinations: MRI Brain without intravenous contrast. MRA brain without intravenous contrast. MRA carotids without intravenous contrast 3-D vascular reconstructions Date and time of exam: January 17, 2025, 11:22 a.m. INDICATIONS: Stroke alert January 16, 2025 onset focal neurologic deficit slurred speech facial numbness Technique: Multiple axial and sagittal images of the brain have been obtained MRA brain carotid images without contrast obtained, including 3-D postprocessing, vascular maximum intensity projection images Findings: Sellaturcica is not enlarged. The optic chiasm and infundibular stalk are not remarkable. Prepontine and interpeduncular cisterns are not enlarged. No localized enlargement of the medulla or herbie. Fourth ventricle and cerebellar tonsils normal in position. Subacute hemorrhage is not seen. Fourth ventricle is midline. Mass in the cerebellopontine angle region is not evident. 7th and 8th nerve complexes exhibits symmetry. Globes are symmetrical with no retro-orbital mass. Increased white matter signal evidenced, scattered punctate foci increased signal in the white matter Diffusion-weighted images demonstrate no focus of restricted diffusion Mass-effect upon the ventricular system is not identified. MRA carotid images no significant carotid stenoses. MRA brain images no large vessel occlusions Impression: Negative for acute hemorrhage mass effect or midline shift No acute infarct Scattered punctate foci of increased signal in the white matter, demyelinating disease pattern
--- NOTE | 2025-01-17 00:14 | ESCONSULT_ITS ---
Tele Neuro Consultation Consultation Date 01/17/25 Most Recent Vital Signs Last Vital Signs Temp 98.6 F 01/16/25 22:07 Pulse 79 01/17/25 00:04 Resp 20 01/17/25 00:04 BP 167/88 H 01/16/25 22:07 Pulse Ox 97 01/16/25 22:07 O2 Del Method Room Air 01/16/25 22:07 Laboratory-Coagulation Panel PT 10.1 Seconds (9.0-12.2) 01/16/25 22:09 INR 0.9 (0.9-1.3) 01/16/25 22:09 APTT 26.4 Seconds (22.0-36.0) 01/16/25 22:09 Consultation Narrative [facility] Tele[facility]urology Consult Services Patient Name:???Génesis Belcher Date of :???1965 Identification Number:??? Date of Service:???01/16/2025 22:09:10 Diagnosis:?G45.9 - Transient cerebral ischemic attack, unspecified Impression: ?59 yo woman presenting for left sided paresthesias, difficulty speaking. Symptoms have resolved, her exam is reassuring. Recommend continuing home aspirin and adding plavix with a 300mg plavix load. Our recommendations are outlined below. Recommendations: ? Stroke/Telemetry Floor ? Neuro Checks (Q4) ? Bedside Swallow Eval ? DVT Prophylaxis ? IV Fluids, Normal Saline ? Head of Bed 30 Degrees ? Euglycemia and Avoid Hyperthermia (PRN Acetaminophen) ? Bolus with Clopidogrel 300 mg bolus x1 and initiate dual antiplatelet therapy with Aspirin 81 mg daily and Clopidogrel 75 mg daily Sign Out: ? Discussed with Emergency Department Provider Advanced Imaging:CTA Head and Neck Completed. LVO:No Patient is not a candidate for YOHANNES Metrics: Last Known Well: 01/16/2025 20:30:00 Dispatch Time: 01/16/2025 22:09:10 Arrival Time: 01/16/2025 21:14:00 Initial Response Time: 01/16/2025 22:12:03Symptoms: paresthesias, dysarthria, aphasia. Initial patient interaction: 01/16/2025 22:12:41 NIHSS Assessment Completed: 01/16/2025 22:32:49Patient is not a candidate for Thrombolytic. Thrombolytic Medical Decision: 01/16/2025 22:32:51Patient was not deemed candidate for Thrombolytic because of following reasons: Resolved symptoms . CT Head: CT head unremarkable for acute infarction or hemorrhage per Radiology: no acute pathology Primary Provider Notified of Diagnostic Impression and Management Plan on: 01/16/2025 22:52:47 History of Present Illness:Patient is a 59 year old Female. Patient was brought by private transportation with symptoms of paresthesias, dysarthria, aphasia. This is a 59 yo woman who presents for evaluation of left sided numbness, slurred speech, possible aphasia. This began around 830pm. En route, she began to improve and has felt essentially back to normal by the time of my evaluation. She said she had a stroke in October of this year though MRI brain 10/22/24 was negative for restricted diffusion. ? Past Medical History: ?Hypertension ?Diabetes Mellitus Medications: No Anticoagulant use? Antiplatelet use:?Yes?aspirin Reviewed EMR for current medications Allergies:? Reviewed Description:?cipro Social History: Drug Use: No Family History: There is no family history of premature cerebrovascular disease pertinent to this consultation ROS : 14 Points Review of Systems was performed and was negative except mentioned in HPI. Past Surgical History: There Is No Surgical History Contributory To Today?s Visit ? Examination: BP(199/94),?Pulse(81), 1A: Level of Consciousness - Alert; keenly responsive?+ 0 1B: Ask Month and Age - Both Questions Right?+ 0 1C: Blink Eyes & Squeeze Hands - Performs Both Tasks?+ 0 2: Test Horizontal Extraocular Movements - Normal?+ 0 3: Test Visual Gould - No Visual Loss?+ 0 4: Test Facial Palsy (Use Grimace if Obtunded) - Normal symmetry?+ 0 5A: Test Left Arm Motor Drift - No Drift for 10 Seconds?+ 0 5B: Test Right Arm Motor Drift - No Drift for 10 Seconds?+ 0 6A: Test Left Leg Motor Drift - No Drift for 5 Seconds?+ 0 6B: Test Right Leg Motor Drift - No Drift for 5 Seconds?+ 0 7: Test Limb Ataxia (FNF/Heel-Chawla) - No Ataxia?+ 0 8: Test Sensation - Normal; No sensory loss?+ 0 9: Test Language/Aphasia - Normal; No aphasia?+ 0 10: Test Dysarthria - Normal?+ 0 11: Test Extinction/Inattention - No abnormality?+ 0 NIHSS Score:?0 Pre-Morbid Modified Shauna Scale: 0 Points = No symptoms at all Spoke with :?Dr. Kendall This consult was conducted in real time using interactive audio and video technology. Patient was informed of the technology being used for this visit and agreed to proceed. Patient located in hospital and provider located at home/office setting. Patient is being evaluated for possible acute neurologic impairment and high probability of imminent or life-threatening deterioration. I spent total of 40 minutes providing care to this patient, including time for face to face visit via telemedicine, review of medical records, imaging studies and discussion of findings with providers, the patient and/or family. Dr Jorden Gannon [facility] For Inpatient follow-up with [facility] physician please call [facility] at . As we are not an outpatient service for any post hospital discharge needs please contact the hospital for assistance. If you have any questions for the [facility] physicians or need to reconsult for clinical or diagnostic changes please contact us via [facility] at . Signature :?Jorden Gannon ?
--- NOTE | 2025-01-17 00:21 | PD.RESHP ---
Documentation for date of: 01/17/25 [facility] History of Present Illness Chief complaint: Left sided tingling sensation History of present illness: This is a 59-year-old female with past medical history of hypertension, diabetes and alleged CVA presented to the ED with complaints of left leg tingling sensation and speech difficulty. She complains she has been experiencing tingling sensations and speech difficulty starting 8:30 PM on 01/16. She states that slurring of words had been resolved by the time she came to the ED. she denies any loss of consciousness, blurriness of vision or seizure or any headache. She denies any involuntary bowel or bladder leak.Her daughter who is present at bedside endorse that she had drooping her mouth on her left side. Patient also complains of dry cough since last 5 days usually present during night but denies any fevers, any increased sputum or shortness of breath, chest pain, chest tightness. She denies any urinary frequency, urinary urgency. She had a similar type of CVA incident on 11/27 with complaints of blurriness of vision at that time. CTA, CT, MRI did not show any possible infract at that time. Patient was discharged and advised about blood glucose control at that time. Today ED visit vitals are pulse rate 79, blood pressure 180/90, respirations 18, temperature 98.8 saturating 98% on room air. Pertinent labs BUN 21, creatinine 1 glucose 325 EKG looks normal in sinus rhythm Head CT?negative for any mass, hemorrhage or any midline shift CT angio no cerebral large vessel occlusion. Treatment given in ED clopidogrel 300 mg Past medical history: History of hypertension takes lisinopril, takes baby aspirin 81 mg, history of diabetes takes Humalog and Lantus. Allergic history: To ciprofloxacin. Social history: Denies any alcohol, smoking or any other drug usage Family history: History of breast cancer in her aunt and diabetes in her mother Review of Systems Review of Systems Systems Reviewed: All systems reviewed, normal except as documented Exam Vital Signs Temp Pulse Resp BP Pulse Ox O2 Del Method 98.6 F 79 20 167/88 H 97 Room Air 01/16/25 22:07 01/17/25 00:04 01/17/25 00:04 01/16/25 22:07 01/16/25 22:07 01/16/25 22:07 Narrative Exam GENERAL: NAD, AAOx3 HEENT: Moist mucosa. Eyes open, symmetrical, & clear CARDIO: Regular rhythm Noted. No Murmurs. PULM: No noted coughing/dyspnea CTA B/L, no R/W/R GI: Abdomen soft, nondistended, no Tenderness . SKIN/MSK/EXT: No wounds/rashes/amputations/edema. Pedal pulses present B/L NEURO: AAOx3, no focal neuro deficits, able to move all 4 extremities. Results: Labs 01/17/25 00:34 01/17/25 00:34 Labs: Short CBC 01/16/25 Range/Units 22:09 WBC 6.6 (3.6-11.0) Thou/mm3 Hgb 13.6 (12.0-16.0) g/dL Hct 38.8 (36.0-46.0) % Plt Count 374 (140-440) Thou/mm3 BMP 01/16/25 22:09 Sodium 138 Potassium 4.0 Chloride 103 Carbon Dioxide 23.9 BUN 21 Creatinine 1.0 Glucose 325 H Calcium 10.1 Cardiac Enzymes 01/16/25 Range/Units 22:09 Troponin I < 0.002 (0.0-0.045) ng/mL Liver Function 01/16/25 Range/Units 22:09 Total Bilirubin 0.4 (0.3-1.2) mg/dL AST 14 (0-34) U/L ALT 16 (10-49) U/L Alkaline Phosphatase 115 (46-116) U/L Albumin 4.4 (3.5-5.0) gm/dL Quality Measures Quality Measures none Medications Home Medications and Allergies Home Medications ?Medication ?Instructions ?Recorded ?Confirmed ?Type insulin glargine 100 unit/mL (3 15 unit subcut BID 01/17/25 01/17/25 History mL) subcutaneous pen (Lantus Solostar U-100 Insulin) insulin lispro 100 unit/mL 15 unit subcut AC 01/17/25 01/17/25 History subcutaneous pen (Humalog KwikPen (U-100) Insulin) lisinopril 5 mg tablet 5 mg PO DAILY 01/17/25 01/17/25 History Allergies Allergy/AdvReac Type Severity Reaction Status Date / Time ciprofloxacin Allergy Severe Hives Verified 12/02/24 14:37 Visit Medications Acetaminophen (Acetaminophen 325 Mg Tablet) 650 mg PO Q6H PRN PRN Reason: Fever >100.4 Stop: 02/16/25 00:00 Aspirin (Aspirin 325 Mg Tablet) 81 mg PO QDAY PEDRO Stop: 02/16/25 00:14 Atorvastatin Calcium (Atorvastatin Calcium 20 Mg Tablet) 80 mg PO HS PEDRO Stop: 02/16/25 20:59 Clopidogrel Bisulfate (Clopidogrel Bisulfate 75 Mg Tablet) 75 mg PO X1 PEDRO Stop: 02/16/25 00:29 Labetalol HCl (Labetalol Inj 5 Mg/Ml Vial 20 Ml) 10 mg IVP Q15M PRN PRN Reason: HYPER Ondansetron HCl (Ondansetron Inj 2 Mg/Ml Inj 2 Ml) 4 mg IVP Q4HR PRN PRN Reason: NAUSEA OR VOMITING Stop: 02/15/25 22:06 Ondansetron HCl (Ondansetron Inj 2 Mg/Ml Inj 2 Ml) 4 mg IVP Q6H PRN; Protocol PRN Reason: NAUSEA OR VOMITING Stop: 02/16/25 00:00 Sennosides (Senna Tablet) 1 tab PO QDAY PRN; Protocol PRN Reason: constipation Stop: 02/16/25 00:00 Discontinued Medications Clopidogrel Bisulfate (Clopidogrel Bisulfate 75 Mg Tablet) 300 mg PO X1 ONE Stop: 01/16/25 23:07 Last Admin: 01/16/25 23:26 Dose: 300 mg Insulin Human Regular (Insulin Hum Regular 1 Unit/0.01 Ml (Per Unit)) 6 unit SC X1 ONE Stop: 01/16/25 23:18 Last Admin: 01/17/25 00:13 Dose: Not Given Assessment & Plan Plan This is a 59-year-old female with past medical history of hypertension, diabetes and alleged CVA presented to the ED with complaints of left leg tingling sensation and speech difficulty. She was admitted for TIA. #CVA Work up #? TIA History of tingling sensation over her left side, slurred speech, drooping of mouth on left side- Brain MRI on 11/26 -Scattered punctate foci increased signal in the white matter, demyelinating disease pattern CT head and CTA of neck shows no mass hemorrhage or any midline shift Teleneurology was consulted and recommended dual antiplatelet therapy. Clopidogrel 300 mg given at ED. ?Ordered aspirin 81 mg and clopidogrel 75 mg for dual antiplatelet therapy in view of suspected TIA. ?Ordered MRI head. ?Ordered echo to find any possible source of stroke. ?Consulted neurologist Dr. Patel. ?Ordered neurochecks every 4 hours ?Ordered physical therapy and swallow evaluation. # Hypertensive Urgency Blood pressure in the range of 170/90 Allowing permissive hypertension in view of suspected TIA. - holding home lisinopril # Type 2 insulin-dependent Diabetes. # Hyperglycemia. Blood glucose 322. ?Starting on sliding scale. Code status: Full DVT prophylaxis: SCD Diet: Low Sodium consistent Anton: None Lines: PIV Supplemental O2: none Disposition: Tele I discussed this case with my senior Dr. Lewis and my attending Dr. Contreras. Vega Chiu MD-PGY1 Attending Provider Attestation/Addendum I, Amarilys Contreras, DO, attest that I was physically present for the [place] portions of the service and evaluated the patient with the resident and I reviewed and discussed the case with the resident and agree with the resident's findings and plans of care as documented above Patient is a 59 female with past medical history of hypertension, diabetes, TIA who presented to the ED due to sudden onset of left upper extremity, left lower extremity numbness and dysarthria.? She states that she began to have the symptoms at around 830pm.? She states that the for the past 3 days she has been feeling unwell with a dry cough.? She states that she likely has pneumonia as she previously presented to the hospital with similar symptoms that have been told that she had pneumonia as well.? She also states that she feels as though there is fire down her left arm and left leg.? Daughter at bedside states that she noted that the patient was very weak prior to coming to the ED and required assistance with ambulation.? She also appeared to be leaning towards the left side.?? She had been noted to have an elevated BP of 190/110 at home.? However, daughter states that the patient has been taking lisinopril 5 mg at home and usual blood pressure is normal with systolic in the 110s. Patient denies any fevers, chills, shortness of breath, changes in vision, lightheadedness, dizziness, nausea, vomiting, chest pain, dysuria otherwise.? Patient takes aspirin daily at home.? Stroke alert was subsequently called in the ED. however, symptoms had resolved by the time that patient spoke with teleneurology.? Recommends further workup and medical management of possible CVA.? Patient's symptoms may be also secondary to uncontrolled hypertension.? Will obtain MRI, echo and continue dual antiplatelet therapy as patient received a bolus of Plavix in the ED.? Patient has no focal neurological deficits on exam.? Gross sensation is intact and muscle strength is 4+ out of 5 in all 4 extremities.? No facial droop noted. cranial nerves II to XII intact. Will also order A1c, TSH and allow for permissive hypertension at this time.
[2025-01-17 00:44] LABS: Basophils # (Auto) 0.1 Thou/mm3 (0.0-0.2); Basophils % (Auto) 1 % (0-2.5); Eosinophils # (Auto) 0.1 Thou/mm3 (0.0-0.5); Eosinophils % (Auto) 2 % (0-10); Hematocrit 38.5 % (36.0-46.0); Hemoglobin 13.3 g/dL (12.0-16.0); Immature Granulocytes Auto 0.01 Thou/mm3 (0.00-0.00); Lymphocytes # (Auto) 2.6 Thou/mm3 (1.0-4.8); Lymphocytes % (Auto) 33 % (10-50); Mean Corpuscular HGB Conc 34.5 g/dl (31.0-37.0); Mean Corpuscular Hemoglobin 29.4 pg (25.0-35.0); Mean Corpuscular Volume 85 fL (80-100); Monocytes # (Auto) 0.6 Thou/mm3 (0.0-0.8); Monocytes % (Auto) 7 % (0-12); Neutrophils # (Auto) 4.6 Thou/mm3 (1.8-7.7); Neutrophils % (Auto) 58 % (37-80); Nucleated Red Blood Cell # 0.00 Thou/mm3 (0.00-0.00); Nucleated Red Blood Cell % 0 /100 WBC (0); Platelet Count 372 Thou/mm3 (140-440); RDW Standard Deviation 39.2 fL (36.4-46.3); Red Blood Count 4.53 Miln/mm3 (4.00-5.20); White Blood Count 7.9 Thou/mm3 (3.6-11.0)
[2025-01-17 01:06] LABS: Alanine Aminotransferase 14 U/L (10-49); Albumin, Serum 4.2 gm/dL (3.5-5.0); Albumin/Globulin Ratio 1.5 (1.2-2.2); Alkaline Phosphatase 105 U/L (46-116); Anion Gap 9 (7-16); Aspartate Amino Transferase 13 U/L (0-34); BUN/Creatinine Ratio 20 Ratio (12-20); Bilirubin,Total 0.5 mg/dL (0.3-1.2); Blood Urea Nitrogen 18 mg/dL (9-23); Calcium 9.9 mg/dL (8.3-10.6); Calcium (Corrected) 9.9 mg/dL (8.5-10.1); Carbon Dioxide 28.5 mMol/L (20.0-31.0); Cardiac Risk Estimate 3.8 RATIO (3.7-5.6); Chloride 104 mMol/L (98-107); Cholesterol 182 mg/dL (132-200); Creatinine (Component) 0.9 mg/dL (0.6-1.3); Estimated Creatinine Clearance 66.3 mL/min (>60); Globulin 2.8 gm/dL (2.3-3.5); Glucose 148 mg/dL (74-106); HDL Cholesterol 48 mg/dL (40-60); LDL Cholesterol,Calculated 101 mg/dL (0-130); Magnesium 1.7 mg/dL (1.6-2.6); Osmolality,Calculated 286 (275-295); Phosphorous 3.5 mg/dL (2.4-5.1); Potassium 3.8 mMol/L (3.4-5.1); Sodium 141 mMol/L (136-145); Thyroid Stimulating Hormone 1.75 uIU/mL (0.55-4.78); Total Protein 7.0 gm/dL (5.7-8.2); Triglycerides 166 mg/dL (30-150); eGFR > 60 See Note
[2025-01-17 04:29] LABS: Collection Type, Urine Voided
[2025-01-17 04:40] LABS: Bilirubin,Urine Negative (Negative); Blood,Urine Negative (Negative); Clarity,Urine Clear (Clear/Hazy); Color,Urine Lt-Yellow (Lt Yel-Yel); Culture Indicated,Urine Not Indicated; Glucose, Urine 4+ (Negative); Ketones,Urine Negative (Negative); Leukocyte Esterase,Urine Negative (Negative); Nitrite,Urine Negative (Negative); PH,Urine 6.0 (5.0-7.0); Protein,Urine 1+ (Neg - Trace); RBC,Urine 1 /hpf (0-3); Specific Gravity,Urine 1.046 (1.001-1.035); Squamous Epithelial Cell,Urine 1 /hpf (0-5); Urobilinogen,Urine Negative mg/dL (0.0-1.0); WBC,Urine < 1 /hpf (0-5)
[2025-01-17 04:46] LABS: Amphetamine/Methamp Scrn,U Negative (Negative); Barbiturate Screen,Urine Negative (Negative); Benzodiazepines Screen,Urine Negative (Negative); Benzoylecgonine Screen, Ur Negative (Negative); Fentanyl Screen,Urine Negative (Negative); Opiate Screen,Urine Negative (Negative); THC Screen,Urine Negative (Negative)
[2025-01-17 06:20] LABS: Glucose Estimated Average 243 mg/dL (80-131); Hemoglobin A1C 10.1 % Hgb (4.8-6.0)
--- NOTE | 2025-01-17 07:57 | XR_ITS ---
Examination: Carotid arterial duplex scan, ultrasound. Date and time of exam: January 17, 2025, 0809 hours INDICATIONS: Stroke alert January 16, 2025, onset focal neurologic deficit including pressure on the left side of the face 2 weeks Technique: Multiple sonographic images have been obtained of the carotid arteries and vertebral arteries, B-mode/grayscale imaging and Doppler spectral analysis and color flow Peak systolic and diastolic velocities have been recorded. Systolic diastolic ratios have been calculated. Findings: Right peak systolic velocities: Distal internal carotid artery peak systolic velocity is 0.9 M/sec Proximal internal carotid artery peak systolic velocity is 0.8 M/sec Carotid bifurcation peak systolic velocity is 0.8 M/sec External carotid artery peak systolic velocity is 0.6 M/sec Vertebral artery flow is antegrade. Left peak systolic velocities: Distal internal carotid artery peak systolic velocity is 0.7 M/sec Proximal internal carotid artery peak systolic velocity is 0.5 M/sec Carotid bifurcation peak systolic velocity is 1.3 M/sec External carotid artery peak systolic velocity is 0.6 M/sec Vertebral artery flow is antegrade Doppler waveform analysis demonstrates no spectral broadening Impression: Right internal carotid artery demonstrates 0 to 10% stenosis. Left internal carotid artery demonstrates 0 to 10% stenosis.
[2025-01-17] MEDS: INSULIN LISPRO (AdmeLOG) 1 UNIT/0.01 ML UNIT SC ×4 (08:48→19:28)
[2025-01-17] MEDS: CLOPIDOGREL BISULFATE 75 MG TABLET PO (08:48)
[2025-01-17] MEDS: Magnesium Sulfate 2 GM Ivpb 2 GM/50 ML BAG IV (08:48)
[2025-01-17] MEDS: ASPIRIN 81 MG CHEW PO (09:04)
--- NOTE | 2025-01-17 12:32 | PC.SS ---
PAINTER MAINTENANCE conducted bedside contact with the patient conduct initial assessment and to discuss discharge planning.? Patient confirmed demographic information.? Patient resides at home with spouse, Deion Belcher .? Patient does not utilize any form of DME to assist with ambulation.? Patient does not utilize home oxygen.? Patient describes the ability to complete ADL?s independently.? Patient identified spouse, Deion Belcher; as medical surrogate decision maker.? [facility] Patient does not participate with dialysis.? Patient does not possess any specialty providers.? Patient utilizes [facility] [employer] for medication services.? Plan is for the patient to return home at the time of discharge.? Family will provide transportation on behalf of the patient.? No further discharge needs identified by the patient.? No further intervention required at this time, social research assistant will be available to address any further concerns.? Next of Kin: Deion Belcher D/C Plan: Home
--- NOTE | 2025-01-17 13:05 | PC.PT ---
PT eval only. Patient was xI with bed mobility, transfers, and ambulation with no AD. Patient is safe to ambulate to the bathroom and in the halls with no AD and no staff. RN made aware.
--- NOTE | 2025-01-17 13:42 | ESPR_ITS ---
<Statement entered by Randall White MD - 01/18/25 07:26> Patient was seen and examined at bedside this morning. No acute overnight events. Patient's initial imaging upon admission was negative, echo was taken, yet is pending still official read. MRI was taken, pending official results. Patient did have an ultrasound carotid Doppler which did not reveal any stenosis. Otherwise patient's symptoms have resolved and her labs look fairly unremarkable. If patient's MRI does come back negative will DC in next 24 hrs. I have reviewed the note and agree with the resident's assessment & plan with exceptions as above. I have personally reviewed labs, imaging, home meds/prior records, examined the patient, formulated and discussed management plan with my attending Randall White PGY2 Disclaimer: Even though this this note was dictated by speech recognition and even though it was carefully revised there may still be minor errors in venetian blind tape cutter due to voice recognition software. Documentation for date of: 01/17/25 Subjective Subjective Interval history: Patient seen and examined at bedside today. No acute events overnight, and patient feels much better. Notably has no burning sensation on the left upper and lower limbs. MRI has been taken, waiting on read. Waiting on echo Exam Vital Signs Temp Pulse Resp BP Pulse Ox O2 Del Method 96.9 F 75 16 159/84 H 97 Room Air 01/17/25 11:10 01/17/25 11:10 01/17/25 11:10 01/17/25 11:10 01/17/25 11:10 01/17/25 11:10 Narrative Exam General: A/O x3, no acute distress, well-nourished, well-developed Eyes: PERRL, EOMI. Anicteric, vision grossly intact. Ears: No ear pain, no ear discharge, Hearing grossly intact. Nose: No nasal discharge. Mouth/Throat: Moist mucous membranes, no redness, no lesions. Neck: Neck supple, non-tender, no cervical lymphadenopathy. Lungs: Clear KEYA to auscultation and percussion, No accessory muscle use. Cardio: Normal S1/S2, regular rhythm, no murmurs, no JVD or carotid bruits. Abdomen: Soft, non-tender, no palpable masses, peristalsis present, no guarding or rebound. Extremities: Symmetrical, no significant deformities, no peripheral edema , non-tender, peripheral pulses presents. Skin: No rashes, no lesions, warm to touch. Neuro: No focal neurological deficits. Motor and sensation intact. Psych: Cooperative, appropriate mood and effect. Objective Labs 01/18/25 04:26 01/18/25 04:26 Labs: Laboratory Results - last 24 hr 01/16/25 01/17/25 01/17/25 22:09 00:34 02:50 WBC 6.6 7.9 RBC 4.66 4.53 Hgb 13.6 13.3 Hct 38.8 38.5 MCV 83 85 MCH 29.2 29.4 MCHC 35.1 34.5 RDW Std Deviation 38.5 39.2 Plt Count 374 372 Neut % (Auto) 56 58 Lymph % (Auto) 37 33 Geary % (Auto) 4 7 Eos % (Auto) 2 2 Baso % (Auto) 1 1 Neut # (Auto) 3.7 4.6 Lymph # (Auto) 2.4 2.6 Geary # (Auto) 0.3 0.6 Eos # (Auto) 0.2 0.1 Baso # (Auto) 0.0 0.1 Immature Gran # (Auto) 0.01 H 0.01 H Absolute Nucleated RBC 0.00 0.00 Immature Gran % 0 0 Nucleated RBC % 0 0 PT 10.1 INR 0.9 APTT 26.4 Sodium 138 141 Potassium 4.0 3.8 Chloride 103 104 Carbon Dioxide 23.9 28.5 Anion Gap 11 9 BUN 21 18 Creatinine 1.0 0.9 Estim Creat Clear Calc 59.2 L 66.3 eGFR > 60 > 60 BUN/Creatinine Ratio 21 H 20 Glucose [address] Glu mg/dL Hemoglobin A1c Calculated Osmolality 291 286 Calcium 10.1 9.9 Corrected Calcium 10.1 9.9 Phosphorus 3.5 Magnesium 1.7 1.7 Total Bilirubin 0.4 0.5 AST 14 13 ALT 16 14 Alkaline Phosphatase 115 105 Troponin I < 0.002 Total Protein 7.4 7.0 Albumin 4.4 4.2 Globulin 3.0 2.8 Albumin/Globulin Ratio 1.5 1.5 Triglycerides 166 H Cholesterol 182 LDL Cholesterol, Calc 101 HDL Cholesterol 48 Cholesterol/HDL Ratio 3.8 TSH 1.75 Beta HCG, Quant 6 Ur Collection Type Voided Urine Color Lt-Yellow Urine Clarity Clear Urine pH 6.0 Ur Specific [place]ford 1.046 H Urine Protein 1+ A Urine Glucose (UA) 4+ A Urine Ketones Negative Urine Blood Negative Urine Nitrite Negative Urine Bilirubin Negative Urine Urobilinogen (Auto) Negative Ur Leukocyte Esterase Negative Urine RBC 1 Urine WBC < 1 Ur Squamous Epith Cells 1 Urine Bacteria None Ur Culture Indicated? Not Indicated Urine Opiates Screen Negative Urine Fentanyl Screen Negative Ur Barbiturates Screen Negative U Amphetamin/Meth Scrn Negative U Benzodiazepines Scrn Negative U Cocaine Metab Screen Negative U Marijuana (THC) Screen Negative HCG (Qual) Positive 01/17/25 04:58 WBC RBC Hgb Hct MCV MCH MCHC RDW Std Deviation Plt Count Neut % (Auto) Lymph % (Auto) Geary % (Auto) Eos % (Auto) Baso % (Auto) Neut # (Auto) Lymph # (Auto) Geary # (Auto) Eos # (Auto) Baso # (Auto) Immature Gran # (Auto) Absolute Nucleated RBC Immature Gran % Nucleated RBC % PT INR APTT Sodium Potassium Chloride Carbon Dioxide Anion Gap BUN Creatinine Estim Creat Clear Calc eGFR BUN/Creatinine Ratio Glucose Estimated Ave Glu mg/dL 243 H Hemoglobin A1c 10.1 H Calculated Osmolality Calcium Corrected Calcium Phosphorus Magnesium Total Bilirubin AST ALT Alkaline Phosphatase Troponin I Total Protein Albumin Globulin Albumin/Globulin Ratio Triglycerides Cholesterol LDL Cholesterol, Calc HDL Cholesterol Cholesterol/HDL Ratio TSH Beta HCG, Quant Ur Collection Type Urine Color Urine Clarity Urine pH Ur Specific Sanford Urine Protein Urine Glucose (UA) Urine Ketones Urine Blood Urine Nitrite Urine Bilirubin Urine Urobilinogen (Auto) Ur Leukocyte Esterase Urine RBC Urine WBC Ur Squamous Epith Cells Urine Bacteria Ur Culture Indicated? Urine Opiates Screen Urine Fentanyl Screen Ur Barbiturates Screen U Amphetamin/Meth Scrn U Benzodiazepines Scrn U Cocaine Metab Screen U Marijuana (THC) Screen HCG (Qual) Quality Measures Quality Measures none Assessment & Plan Assessment Current Active Medications: Generic Name Dose Route Start Last Admin Trade Name Freq PRN Reason Stop Dose Admin Acetaminophen 650 mg 01/17/25 00:00 Acetaminophen 325 Mg Tablet PO 02/16/25 00:00 Q6H PRN Fever >100.4 Aspirin 81 mg 01/17/25 09:00 01/17/25 09:04 Aspirin 81 Mg Chew PO 02/16/25 08:59 81 mg QDAY PEDRO Administration Atorvastatin Calcium 80 mg 01/17/25 21:00 Atorvastatin Calcium 20 Mg Tablet PO 02/16/25 20:59 HS PEDRO Clopidogrel Bisulfate 75 mg 01/17/25 09:00 01/17/25 08:48 Clopidogrel Bisulfate 75 Mg Tablet PO 02/16/25 08:59 75 mg QDAY PEDRO Administration Dextrose 25 ml 01/17/25 01:22 Dextrose 50%-Water Inj 50 Ml Syringe IV 02/16/25 01:21 Q15MIN PRN BG 50-70 responsive npo pt Dextrose 50 ml 01/17/25 01:22 Dextrose 50%-Water Inj 50 Ml Syringe IV 02/16/25 01:21 Q15MIN PRN BG <50 OR BG <70 & pt unresponsive Glucagon 1 mg 01/17/25 01:22 Glucagon Inj 1 Mg Vial IM Q15MIN PRN BG <70, and no IV access Insulin Human Lispro 0 unit 01/17/25 07:30 01/17/25 13:07 Insulin Lispro (Admelog) 1 Unit/0.01 Ml Unit SC 02/16/25 07:29 4 unit AC PEDRO Administration Protocol Labetalol HCl 10 mg 01/16/25 22:07 Labetalol Inj 5 Mg/Ml Vial 20 Ml IVP Q15M PRN HYPER Ondansetron HCl 4 mg 01/16/25 22:07 Ondansetron Inj 2 Mg/Ml Inj 2 Ml IVP 02/15/25 22:06 Q4HR PRN NAUSEA OR VOMITING Sennosides 1 tab 01/17/25 00:00 Senna Tablet PO 02/16/25 00:00 QDAY PRN constipation Protocol Plan Patient is a 59-year-old female with PMH of hypertension, diabetes and alleged CVA presented to the ED with complaints of left upper and lower limb burning sensation and speech difficulty. She was admitted for TIA workup. #? TIA CT head and CTA of neck shows no mass, hemorrhage, blockage or any midline shift; carotid doppler show 0-10% stenosis bilaterally. Patient complained of difficulty with speech and left upper and lower limb burning sensation on admission; however symptoms resolved in the ED (NIH stroke scale of 0), and TNK not given. On physical exam no neurological deficits present, unremarkable labs. DDx: TIA, hypertensive emergency, DKA/HHS; hypertensive emergency less likely as BP less than 180 systolic; DKA less likely because no acidosis found on chemistry, while HHS less likely as blood sugar on admission was too low for this diagnosis (325; most HHS events occur about 600). TIA most likely diagnosis out of the 3 Plan: Continue aspirin 81, atorvastatin 80, clopidogrel per teleneurology recommendations Echo and MRI brain taken, awaiting official read Neurology consulted, appreciate recommendations PT and TOW OPERATOR on board # T2DM A1c 10.1 on admission. Blood glucose 243 on labs 01/17/25. Plan: ?Patient on sliding scale step 2 # Hx of hypertension Patient on lisinopril at home Plan: Monitor BP Disposition: Telemetry DVT prophylaxis: SCD GI prophylaxis: Diet: low sodium Lines: PIV CODE STATUS: Full code This case was discussed with my attending physician, Dr. Gaffney, and senior resident, Dr. Buckner. Bakari Lenz MD-PhD, PGY1 Attending Provider Attestation/Addendum I have discussed and was present for the essential components of the history, physical examination, diagnosis, and treatment plan with the resident. I agree with the patient's care as documented by the resident and amended herein by me. Turner Gaffney, DO. Although this document has been carefully reviewed, there may still be some phonetic and other typographical errors. These errors are purely grammatical due to imperfections in the software program and should not be construed in any way to compromise the substance of the patient's medical care during this visit. Patient seen and evaluated this AM. No acute events overnight, vital signs stable, patient afebrile, labs unremarkable. A1c is 10, TSH within normal limits, U tox unremarkable, beta-hCG positive. MRI negative for any acute infarct or acute intracranial pathology. Will continue aspirin, statin and Plavix for now pending final neurology recommendations. An echo was also pending, likely DC tomorrow on 01/18 pending specialist recommendations.
[2025-01-17] MEDS: ATORVASTATIN CALCIUM 20 MG TABLET 80 MG PO (20:11)
[2025-01-17] MEDS: INSULIN LISPRO (AdmeLOG) 1 UNIT/0.01 ML UNIT 10 UNIT SC (20:41)
--- NOTE | 2025-01-17 21:15 | ESPR_ITS ---
Documentation for date of: 01/17/25 Subjective Subjective Interval history: Patient examined at bedside. Vitals are stable, A1c 10.1, glucose in the a.m. 148, TG 166, cholesterol 182, LDL 101. Other labs fairly unremarkable. Admission symptoms including left-sided facial droop, tingling, speech slurred helped resolved. Imaging including CT head, CTA head and neck, MRI negative for any acute hemorrhage, LVO, midline shift, or mass. Patient working well with physical therapy. Patient to continue aspirin and atorvastatin daily as treatment for TIA. Also recommend that patient get further workup for secondary hypertension in outpatient setting. As this may be contributing to hypertensive urgency and onset of these symptoms as noted as well in the past. Exam Vital Signs Temp Pulse Resp BP Pulse Ox O2 Del Method 97.6 F 65 16 144/77 H 97 Room Air 01/17/25 20:00 01/17/25 20:09 01/17/25 20:09 01/17/25 20:00 01/17/25 20:00 01/17/25 20:00 Narrative Exam General: Alert and oriented x3. No acute distress, cooperative HEENT: NCAT, No JVD noted. Mucosa moist. Pupils are equal and reactive to light bilaterally Cardiovascular: Normal S1 and S2. Regular rate and rhythm. Respiratory: Lungs are clear to auscultation bilaterally. No wheezing or crackles heard. Abdomen: Soft, nontender, not distended, normal bowel sounds. Skin: Warm to touch, dry, no rashes noted Musculoskeletal: No gross injuries. Able to move all 4 extremities. No pitting edema Neuro: Alert and oriented x3. No focal neuro deficits. Psych: Normal affect and mood Objective Labs 01/18/25 04:26 01/18/25 04:26 Labs: Laboratory Results - last 24 hr 01/16/25 01/17/25 01/17/25 22:09 00:34 02:50 WBC 6.6 7.9 RBC 4.66 4.53 Hgb 13.6 13.3 Hct 38.8 38.5 MCV 83 85 MCH 29.2 29.4 MCHC 35.1 34.5 RDW Std Deviation 38.5 39.2 Plt Count 374 372 Neut % (Auto) 56 58 Lymph % (Auto) 37 33 [place] % (Auto) 4 7 Eos % (Auto) 2 2 Baso % (Auto) 1 1 Neut # (Auto) 3.7 4.6 Lymph # (Auto) 2.4 2.6 [place] # (Auto) 0.3 0.6 Eos # (Auto) 0.2 0.1 Baso # (Auto) 0.0 0.1 Immature Gran # (Auto) 0.01 H 0.01 H Absolute Nucleated RBC 0.00 0.00 Immature Gran % 0 0 Nucleated RBC % 0 0 PT 10.1 INR 0.9 APTT 26.4 Sodium 138 141 Potassium 4.0 3.8 Chloride 103 104 Carbon Dioxide 23.9 28.5 Anion Gap 11 9 BUN 21 18 Creatinine 1.0 0.9 Estim Creat Clear Calc 59.2 L 66.3 eGFR > 60 > 60 BUN/Creatinine Ratio 21 H 20 Glucose [address] H [address] Glu mg/dL Hemoglobin A1c Calculated Osmolality 291 286 Calcium 10.1 9.9 Corrected Calcium 10.1 9.9 Phosphorus 3.5 Magnesium 1.7 1.7 Total Bilirubin 0.4 0.5 AST 14 13 ALT 16 14 Alkaline Phosphatase 115 105 Troponin I < 0.002 Total Protein 7.4 7.0 Albumin 4.4 4.2 Globulin 3.0 2.8 Albumin/Globulin Ratio 1.5 1.5 Triglycerides 166 H Cholesterol 182 LDL Cholesterol, Calc 101 HDL Cholesterol 48 Cholesterol/HDL Ratio 3.8 TSH 1.75 Beta HCG, Quant 6 Ur Collection Type Voided Urine Color Lt-Yellow Urine Clarity Clear Urine pH 6.0 Ur Specific [place] 1.046 H Urine Protein 1+ A Urine Glucose (UA) 4+ A Urine Ketones Negative Urine Blood Negative Urine Nitrite Negative Urine Bilirubin Negative Urine Urobilinogen (Auto) Negative Ur Leukocyte Esterase Negative Urine RBC 1 Urine WBC < 1 Ur Squamous Epith Cells 1 Urine Bacteria None Ur Culture Indicated? Not Indicated Urine Opiates Screen Negative Urine Fentanyl Screen Negative Ur Barbiturates Screen Negative U Amphetamin/Meth Scrn Negative U Benzodiazepines Scrn Negative U Cocaine Metab Screen Negative U Marijuana (THC) Screen Negative HCG (Qual) Positive 01/17/25 04:58 WBC RBC Hgb Hct MCV MCH MCHC RDW Std Deviation Plt Count Neut % (Auto) Lymph % (Auto) [place] % (Auto) Eos % (Auto) Baso % (Auto) Neut # (Auto) Lymph # (Auto) [place] # (Auto) Eos # (Auto) Baso # (Auto) Immature Gran # (Auto) Absolute Nucleated RBC Immature Gran % Nucleated RBC % PT INR APTT Sodium Potassium Chloride Carbon Dioxide Anion Gap BUN Creatinine Estim Creat Clear Calc eGFR BUN/Creatinine Ratio Glucose Estimated Ave Glu mg/dL 243 H Hemoglobin A1c 10.1 H Calculated Osmolality Calcium Corrected Calcium Phosphorus Magnesium Total Bilirubin AST ALT Alkaline Phosphatase Troponin I Total Protein Albumin Globulin Albumin/Globulin Ratio Triglycerides Cholesterol LDL Cholesterol, Calc HDL Cholesterol Cholesterol/HDL Ratio TSH Beta HCG, Quant Ur Collection Type Urine Color Urine Clarity Urine pH Ur Specific [place] Urine Protein Urine Glucose (UA) Urine Ketones Urine Blood Urine Nitrite Urine Bilirubin Urine Urobilinogen (Auto) Ur Leukocyte Esterase Urine RBC Urine WBC Ur Squamous Epith Cells Urine Bacteria Ur Culture Indicated? Urine Opiates Screen Urine Fentanyl Screen Ur Barbiturates Screen U Amphetamin/Meth Scrn U Benzodiazepines Scrn U Cocaine Metab Screen U Marijuana (THC) Screen HCG (Qual) Quality Measures Quality Measures none Assessment & Plan Assessment Current Active Medications: Generic Name Dose Route Start Last Admin Trade Name Freq PRN Reason Stop Dose Admin Acetaminophen 650 mg 01/17/25 00:00 Acetaminophen 325 Mg Tablet PO 02/16/25 00:00 Q6H PRN Fever >100.4 Aspirin 81 mg 01/17/25 09:00 01/17/25 09:04 Aspirin 81 Mg Chew PO 02/16/25 08:59 81 mg QDAY PEDRO Administration Atorvastatin Calcium 80 mg 01/17/25 21:00 01/17/25 20:11 Atorvastatin Calcium 20 Mg Tablet PO 02/16/25 20:59 80 mg HS PEDRO Administration Clopidogrel Bisulfate 75 mg 01/17/25 09:00 01/17/25 08:48 Clopidogrel Bisulfate 75 Mg Tablet PO 02/16/25 08:59 75 mg QDAY PEDRO Administration Dextrose 25 ml 01/17/25 01:22 Dextrose 50%-Water Inj 50 Ml Syringe IV 02/16/25 01:21 Q15MIN PRN BG 50-70 responsive npo pt Dextrose 50 ml 01/17/25 01:22 Dextrose 50%-Water Inj 50 Ml Syringe IV 02/16/25 01:21 Q15MIN PRN BG <50 OR BG <70 & pt unresponsive Glucagon 1 mg 01/17/25 01:22 Glucagon Inj 1 Mg Vial IM Q15MIN PRN BG <70, and no IV access Insulin Human Lispro 0 unit 01/17/25 19:30 01/17/25 20:45 Insulin Lispro (Admelog) 1 Unit/0.01 Ml Unit SC 02/16/25 19:29 Not Given ACHS PEDRO Protocol Labetalol HCl 10 mg 01/16/25 22:07 Labetalol Inj 5 Mg/Ml Vial 20 Ml IVP Q15M PRN HYPER Ondansetron HCl 4 mg 01/16/25 22:07 Ondansetron Inj 2 Mg/Ml Inj 2 Ml IVP 02/15/25 22:06 Q4HR PRN NAUSEA OR VOMITING Sennosides 1 tab 01/17/25 00:00 Senna Tablet PO 02/16/25 00:00 QDAY PRN constipation Protocol Plan This is a 59-year-old female with past medical history of hypertension, diabetes and alleged CVA presented to the ED with complaints of left leg tingling sensation and speech difficulty. She was admitted for TIA. #TIA # Hypertensive Urgency-resolved History of tingling sensation over her left side, slurred speech, drooping of mouth on left side. Blood pressure was in the range of 170/90 Brain MRI on 11/26 -Scattered punctate foci increased signal in the white matter, demyelinating disease pattern CT head and CTA of neck shows no mass hemorrhage or any midline shift MRI negative for Acute hemorrhage, mass, no acute infarct. Noted to have scattered punctate foci in white matter. ?Continue aspirin 81 mg daily -Continue atorvastatin 40 mg daily ? neurochecks every 4 hours - Further workup outpatient for secondary causes of hypertension # Type 2 insulin-dependent Diabetes. # Hyperglycemia. Blood glucose 322. ?sliding scale Primary care team to manage above conditions and ongoing care needs. The patient's management plan was discussed with my attending physician Dr. Patel. Shayla Hand, PGY-2 Attending Provider Attestation/Addendum I personally have seen and examined the patient at the bedside and agreed with resident's findings, assessment and plan of care. Her presenting symptoms are consistent with hypertensive emergency and has a negative workup. In order to prevent a recurrence of similar presentation and admission, advised workup to evaluate for secondary causes of hypertension including renal causes and obstructive sleep apnea. Patient is stable from neurology standpoint for discharge on aspirin and statin and vascular risk factors control.
[2025-01-18] VITALS (7 sets, daily range): BP systolic 125–169; BP diastolic 69–76; PULSE 65–78; RESP 14–97; TEMP 36.1–36.3; O2SAT 97–99; BMI 33.8
[2025-01-18 05:24] LABS: Basophils # (Auto) 0.1 Thou/mm3 (0.0-0.2); Basophils % (Auto) 1 % (0-2.5); Eosinophils # (Auto) 0.2 Thou/mm3 (0.0-0.5); Eosinophils % (Auto) 3 % (0-10); Hematocrit 37.1 % (36.0-46.0); Hemoglobin 13.0 g/dL (12.0-16.0); Immature Granulocytes Auto 0.02 Thou/mm3 (0.00-0.00); Lymphocytes # (Auto) 2.2 Thou/mm3 (1.0-4.8); Lymphocytes % (Auto) 33 % (10-50); Mean Corpuscular HGB Conc 35.0 g/dl (31.0-37.0); Mean Corpuscular Hemoglobin 29.5 pg (25.0-35.0); Mean Corpuscular Volume 84 fL (80-100); Monocytes # (Auto) 0.3 Thou/mm3 (0.0-0.8); Monocytes % (Auto) 5 % (0-12); Neutrophils # (Auto) 3.9 Thou/mm3 (1.8-7.7); Neutrophils % (Auto) 58 % (37-80); Nucleated Red Blood Cell # 0.00 Thou/mm3 (0.00-0.00); Nucleated Red Blood Cell % 0 /100 WBC (0); Platelet Count 320 Thou/mm3 (140-440); RDW Standard Deviation 38.4 fL (36.4-46.3); Red Blood Count 4.40 Miln/mm3 (4.00-5.20); White Blood Count 6.8 Thou/mm3 (3.6-11.0)
[2025-01-18 05:46] LABS: Alanine Aminotransferase 12 U/L (10-49); Albumin, Serum 3.8 gm/dL (3.5-5.0); Albumin/Globulin Ratio 1.5 (1.2-2.2); Alkaline Phosphatase 88 U/L (46-116); Anion Gap 11 (7-16); Aspartate Amino Transferase 16 U/L (0-34); BUN/Creatinine Ratio 20 Ratio (12-20); Bilirubin,Total 0.6 mg/dL (0.3-1.2); Blood Urea Nitrogen 16 mg/dL (9-23); Calcium 9.3 mg/dL (8.3-10.6); Calcium (Corrected) 9.5 mg/dL (8.5-10.1); Carbon Dioxide 25.2 mMol/L (20.0-31.0); Chloride 103 mMol/L (98-107); Creatinine (Component) 0.8 mg/dL (0.6-1.3); Estimated Creatinine Clearance 75.0 mL/min (>60); Globulin 2.6 gm/dL (2.3-3.5); Glucose 216 mg/dL (74-106); Osmolality,Calculated 285 (275-295); Potassium 4.1 mMol/L (3.4-5.1); Sodium 139 mMol/L (136-145); Total Protein 6.4 gm/dL (5.7-8.2); eGFR > 60 See Note
[2025-01-18] MEDS: INSULIN LISPRO (AdmeLOG) 1 UNIT/0.01 ML UNIT SC ×2 (07:34→11:33)
[2025-01-18 07:55] LABS: Magnesium 1.8 mg/dL (1.6-2.6); Phosphorous 4.1 mg/dL (2.4-5.1)
[2025-01-18] MEDS: ASPIRIN 81 MG CHEW PO (08:18)
[2025-01-18] MEDS: CLOPIDOGREL BISULFATE 75 MG TABLET PO (08:18)
[2025-01-18] MEDS: INSULIN LISPRO (AdmeLOG) 1 UNIT/0.01 ML UNIT 5 UNIT SC (15:14)
--- NOTE | 2025-01-18 15:35 | ESDS_ITS ---
<Statement entered by Randall White MD - 01/18/25 16:27> I have reviewed the note and agree with the resident's assessment & plan with exceptions as below. I have personally reviewed labs, imaging, home meds/prior records, examined the patient, formulated and discussed management plan with my attending Patient was seen evaluated bedside this morning. No acute overnight events. Patient's imaging including MRI was negative. On the day of discharge patient was deemed stable enough to be discharged home. Patient's blood pressure was also a lot better and labs look fairly unremarkable. Patient's blood sugar was a little bit elevated prior to discharge, was given insulin prior to discharge. Patient was told to follow-up outpatient with primary care physician and neurologist. Echo was taken, but results were not yet available therefore patient will need to follow with primary care physician for echo results. Randall White PGY2 Disclaimer: Even though this this note was dictated by speech recognition and even though it was carefully revised there may still be minor errors in director [employer] due to voice recognition software. Planned Discharge Date 01/18/25 DS: Providers Provider Date of admission: 01/17/25 00:00 Primary care physician: Alirio Acharya PA-C Admitting Provider: Amarilys Contreras DO Attending Provider on Admission: Felix Gaffney DO Consults: 01/16/25 22:07 Consult to Neurology / Tele-Neurology Routine Comment: Consulting Provider: [facility] 01/17/25 00:14 Consult to Neurology / Tele-Neurology Stat Comment: TIA Consulting Provider: German Patel Referral Physical Therapy Stat Comment: Physician Instructions: 01/17/25 01:20 Referral Speech Therapy Routine Comment: Attending Provider on DC: Rudy Vee MD Discharging Provider: Rudy Vee MD DS: Diagnosis Problem List Completed Was Problem List Reviewed/Reconciled?: Yes Hospital Course Hospital Course Hospital course: Hospital Course: Patient is a 59-year-old female with past medical history of hypertension, diabetes and alleged CVA who presented to the ED with complaints of left leg tingling sensation and speech difficulty on 01/16/25. She was experiencing tingling sensations and speech difficulty starting 20:30 on 01/16. She stated that slurring of words had resolved by ED arrival, and denied loss of consciousness, blurry vision, seizure, headache or involuntary bowel or bladder leak. Her daughter stated that she had L sided facial drooping. Exam on admission showed no focal neurological deficits, and CT head was negative for mass, hemorrhage or midline shift. CTA negative for large vessel occlusion. BP on admission of 190/110. Patient was given aspirin, atorvastatin, clopidogrel and admitted for CVA/TIA workup. Teleneuro recommended permissive hypertension up to 200, and patient admitted for TIA workup. On 01/17/25, patient continued showing no symptoms, while carotid doppler showed 0-10% stenosis and MRI showed no mass, hemorrhage or midline shift. Seen by neurology, who stated she was stable for discharge. On 01/18/25, patient received 5 units lispro for glucose of 353; she was deemed stable, and she was discharged. Patient was called and told to follow up with primary care for echo results. Discharge Instructions: Follow-up primary care physician within 2 or 3 days upon discharge Please follow-up with neurology within 7 days upon discharge You have been started on atorvastatin 80 mg daily We have switched you insulin lispro to 5units 3 times a day with meals Continue taking all other home medications as prescribed Please come back to the ED if symptoms persist or worsen. Problem List: #? TIA # T2DM # Hx of hypertension Status at Discharge Functional status at discharge: independent ambulation Overall status at discharge: patient is back to baseline Time Spent with Patient Time attestation: Total time spent providing and/or coordinating discharge services: Time spent: Greater than 30 minutes Quality: Stroke Pt Provided Written Stroke Discharge Instructions: Yes Exam Vital Signs Temp Pulse Resp BP Pulse Ox O2 Del Method 97.4 F 74 14 148/69 H 99 Room Air 01/18/25 12:00 01/18/25 12:00 01/18/25 12:00 01/18/25 12:00 01/18/25 12:00 01/18/25 12:00 Narrative Exam General: A/O x3, no acute distress, well-nourished, well-developed Eyes: PERRL, EOMI. Anicteric, vision grossly intact. Ears: No ear pain, no ear discharge, Hearing grossly intact. Nose: No nasal discharge. Mouth/Throat: Moist mucous membranes, no redness, no lesions. Neck: Neck supple, non-tender, no cervical lymphadenopathy. Lungs: Clear KEYA to auscultation and percussion, No accessory muscle use. Cardio: Normal S1/S2, regular rhythm, no murmurs, no JVD or carotid bruits. Abdomen: Soft, non-tender, no palpable masses, peristalsis present, no guarding or rebound. Extremities: Symmetrical, no significant deformities, no peripheral edema , non-tender, peripheral pulses presents. Skin: No rashes, no lesions, warm to touch. Neuro: No focal neurological deficits. Motor and sensation intact. Psych: Cooperative, appropriate mood and effect. Discharge Plan Plan Patient Disposition: HOME (Self Care) Patient condition on transfer: Stable Care Plan Goals: Follow-up primary care physician within 2 or 3 days upon discharge Please follow-up with neurology within 7 days upon discharge You have been started on atorvastatin 80 mg daily We have switched you insulin lispro to 5units 3 times a day with meals Continue taking all other home medications as prescribed Please come back to the ED if symptoms persist or worsen. Prescriptions/Referrals Prescriptions/Med Rec: New atorvastatin [Lipitor] 80 mg tablet 80 mg PO QPM Qty: 30 0RF Continued (DME) lancets [Comfort EZ Lancets] 28 gauge misc See Rx Instructions .Route Qty: 100 3RF Rx Instructions: As directed aspirin 81 mg tablet,delayed release (DR/EC) 81 mg PO DAILY Qty: 30 3RF lisinopril 5 mg tablet 5 mg PO DAILY Patient Comments: TAKE 1 TABLET BY MOUTH EVERY DAY insulin glargine [Lantus Solostar U-100 Insulin] 100 unit/mL (3 mL) insulin pen 15 unit subcut BID Changed insulin lispro [Humalog KwikPen Insulin] 100 unit/mL insulin pen 5 unit SUBCUT AC 30 Days Qty: 0 0RF Referrals: Alirio Acharya PA-C [Primary Care Provider] Patient/Caregiver Discharge Instructions Other Discharge Activity Instructions:: Follow-up primary care physician within 2 or 3 days upon discharge Please follow-up with neurology within 7 days upon discharge You have been started on atorvastatin 80 mg daily We have switched you insulin lispro to 5units 3 times a day with meals Continue taking all other home medications as prescribed Please come back to the ED if symptoms persist or worsen. Education Materials: What Is a TIA?, Anatomy of the Brain Print Language: Swazi Stand Alone Forms: Belinda Award Info., Patient Portal Info Letter, Work/Release Restrictions Discharge Order Discharge Orders: Discharge (Routine); Ordered 01/18/25 Ordered By: Randall White Quality Discharge Quality Measures none MD Attestestation MD Attestation I reviewed labs, imaging, EKG, home medications and prior available records. Face to face evaluation was performed by me. I have personally examined the patient and discussed assessment and plan with the IM team. I reviewed the resident note and agree with the plan with exceptions as below. Aphasia, resolved Left-sided numbness, resolved TIA Insulin-dependent diabetes mellitus Continue aspirin and atorvastatin Outpatient follow-up with neurology Continue insulin glargine and lispro. Monitor fingersticks Continue lisinopril Time spent is 35 minutes. More than 50% of the time was spent on patient education and coordination of care.
--- NOTE | 2025-01-18 15:58 | PC.NURSE ---
DR. ZUNIGA AND DR. CHAU WERE MADE AWARE OF BS: 353, AT [phone], 342 AT 1531, AND 314 AT 1554. PT OKAY TO DISCHARGE HOME. DISCHARGE INSTRUCTIONS GIVEN SHE WAS ADVICE TO TAKE HER LANTUS AT HOME.
== END 2025-01-18 16:01 | disposition home or self-care (01) ==
LOC: SERX 23:17 → SERHOLD 01-17 00:39 → S2NX 01-17 07:50 → S3SX 01-18 05:53 → SERHOLD 01-18 05:53
PROVIDERS: Nurse Practitioner Family; Student in an Organized Health Care Education/Training Program; Admitting Provider Internal Medicine; Emergency Provider Emergency Medicine; PCP Physician Assistant; Visit Provider Student in an Organized Health Care Education/Training Program
DX: I16.0 Hypertensive urgency (principal); I10 Essential (primary) hypertension; E11.65 Type 2 diabetes mellitus with hyperglycemia
CPT/HCPCS: 36415; 70450; 70496; 70498; 70544; 71045; 80053; 80061; 80307; 81001; 83036; 83735; 84100; 84443; 84484; 84702; 84703; 85025; 85610; 85730; 92610; 93005; 93306; 93880; 97161; 99285; A4649; G0378; J1815; J3475; Q9967; A9270